=== PATIENT | male | born 1975 | race Two or more races ===

== ENCOUNTER 2024-07-11 14:12 | Inpatient (IN) | payer OTHER, MEDICAID ==
[~2024-07-11] VITALS: Ht 180.3 cm; Wt 172.5 kg
[2024-07-11 15:24] LABS: Urine Bacteria None Seen /hpf (None Seen)
[2024-07-11 15:40] LABS: Urine Blood TRACE /uL (Negative); Urine Clarity Clear (Clear); Urine Color Light-Yellow (Yellow); Urine Protein, UAD Negative (Negative); Urine Specific Gravity 1.022 (1.001-1.035); Urine Urobilinogen Normal (Negative); Urine WBC <1 /hpf (0 - 3); Urine pH 6.5 (5.0-9.0)
[2024-07-11 16:00] LABS: Basophils # (auto) 0.1 10 ^3/uL (0-0.2); Eosinophils # (auto) 0.9 10 ^3/uL (0-0.8); Hemoglobin 14.3 g/dL (13.5-17.5)
[2024-07-11 16:02] LABS: Basophils % (auto) 0.7 % (0.0-2.0); Eosinophils % (auto) 7.1 % (0.0-7.0); Hematocrit 43.2 % (41.0-53.0); Lymphocytes # (auto) 2.8 10 ^3/uL (0.4-5.4); Lymphocytes % (auto) 22.7 % (10.0-50.0); Mean Corpuscular Hemoglobin 25.2 pg (28.0-32.0); Mean Corpuscular Hgb Conc. 33.1 g/dL (32.0-36.0); Mean Corpuscular Volume 76.2 fL (80.0-100.0); Monocytes # (auto) 1.1 10 ^3/uL (0-1.3); Monocytes % (auto) 8.7 % (0.0-12.0); Neutrophils # (auto) 7.5 10 ^3/uL (1.6-8.6); Neutrophils % (auto) 60.8 % (37.0-80.0); Platelet Count (auto) 240 10^3/uL (140-450); Red Blood Cells 5.67 10^6/uL (4.5-5.90); Red Cell Distribution Width 14.9 % (11.8-14.3); White Blood Cell 12.3 10^3/uL (4.4-10.8)
[2024-07-11 16:20] LABS: Alanine Aminotransferase 21 U/L (7-40); Albumin 4.5 g/dL (3.2-4.8); Alkaline Phosphatase 206 U/L (46-116); Anion Gap 5 (5-15); Aspartate Aminotransferase 15 U/L (13-40); BUN/Creatinine Ratio 9.3 (10.0-20.0); Bilirubin, Total 0.4 mg/dL (0.2-1.0); Blood Urea Nitrogen 10 mg/dL (9-23); Calcium 9.6 mg/dL (8.7-10.4); Carbon Dioxide 31 mmol/L (20-30); Chloride 102 mmol/L (98-107); Glucose 165 mg/dL (74-106); Potassium 3.8 mmol/L (3.5-5.1); Sodium 138 mmol/L (136-145); Total Protein 7.5 g/dL (5.7-8.2)
[2024-07-11] MEDS: IOHEXOL 300 MG/ML 100ML BOTTLE IJ ONE (17:28)
[2024-07-11 20:15] VITALS: PULSE 54; RESP 20; O2SAT 100
[2024-07-11] MEDS: CLINDAMYCIN 900MG IV 50 ML IV ONE (20:25)
[2024-07-11] MEDS ORDERED: ACETAMINOPHEN 325 MG TAB PO PRN (20:45)
[2024-07-11] MEDS ORDERED: ALBUTEROL SULF 2.5 MG/0.5ML(0.5%) NEB SOLN NEB PRN (20:45)
[2024-07-11] MEDS ORDERED: TEMAZEPAM 15 MG CAP PO PRN (20:45)
[2024-07-11] MEDS ORDERED: ONDANSETRON HCL 4 MG/2 ML VIAL IV PRN (20:45)
[2024-07-11] MEDS: ATORVASTATIN 20 MG TAB PO SCH (22:02)
[2024-07-11] MEDS: CLINDAMYCIN 600MG IV 50 ML IV SCH (22:08)
[2024-07-11] MEDS: HYDROcodone-ACET 5/325MG TAB PO PRN (22:59)
[2024-07-11 23:00] VITALS: O2SAT 95
[2024-07-12] VITALS (11 sets, daily range): BP systolic 99–146; BP diastolic 58–106; PULSE 54–103; RESP 17–22; TEMP 98.1–98.6; O2SAT 92–97
[2024-07-12] MEDS ORDERED: CETI10CA PO (03:21)
[2024-07-12] MEDS ORDERED: ASPI-543 PO (03:21)
[2024-07-12] MEDS ORDERED: FLUT50AE5 IN (03:21)
[2024-07-12] MEDS ORDERED: MONT4CHW74 PO (03:21)
[2024-07-12] MEDS ORDERED: ARIP20TA4 PO (03:21)
[2024-07-12] MEDS ORDERED: IPRIH IN (03:21)
[2024-07-12] MEDS ORDERED: HYDR-4798 PO (03:21)
[2024-07-12 06:44] LABS: Chloride 103 mmol/L (98-107); Potassium 3.7 mmol/L (3.5-5.1); Sodium 137 mmol/L (136-145)
[2024-07-12 06:45] LABS: Anion Gap 5 (5-15); Calcium 9.3 mg/dL (8.7-10.4); Carbon Dioxide 29 mmol/L (20-30)
[2024-07-12 06:50] LABS: BUN/Creatinine Ratio 10.5 (10.0-20.0); Blood Urea Nitrogen 11 mg/dL (9-23); Glucose 183 mg/dL (74-106)
[2024-07-12 07:06] LABS: Basophils # (auto) 0 10 ^3/uL (0-0.2); Basophils % (auto) 0.1 % (0.0-2.0); Eosinophils # (auto) 0.5 10 ^3/uL (0-0.8); Eosinophils % (auto) 4.4 % (0.0-7.0); Hematocrit 40.7 % (41.0-53.0); Hemoglobin 13.5 g/dL (13.5-17.5); Lymphocytes # (auto) 2.3 10 ^3/uL (0.4-5.4); Lymphocytes % (auto) 19.3 % (10.0-50.0); Mean Corpuscular Hemoglobin 25.2 pg (28.0-32.0); Mean Corpuscular Volume 76.1 fL (80.0-100.0); Monocytes # (auto) 1.2 10 ^3/uL (0-1.3); Monocytes % (auto) 10.2 % (0.0-12.0); Nucleated Red Blood Cells % 0.1 %; Platelet Count (auto) 220 10^3/uL (140-450); Red Blood Cells 5.35 10^6/uL (4.5-5.90); White Blood Cell 12.2 10^3/uL (4.4-10.8)
[2024-07-12] MEDS: InsuLIN REG 1unit/0.01ml Soln (100units/ml) SC ONE (09:45)
[2024-07-12] MEDS: DEXTROSE (50%) 50ML SYRG IV ONE (09:45)
[2024-07-12] MEDS: ACCU-CHEK COMFORT CURVE STRIP VI ONE (09:45)
[2024-07-12] MEDS: ENOXAPARIN SOD 40 MG/0.4 ML SYRINGE SC SCH (10:00)
[2024-07-12] MEDS: DULoxetine HCL 30 MG CAP PO SCH (10:00)
[2024-07-12] MEDS: LOSARTAN POTASSIUM 50 MG TAB PO SCH (12:13)
[2024-07-12] MEDS: NYSTATIN TOPICAL POWDER 15GM TOP ONE (14:00)
[2024-07-12] MEDS: MORPHINE SULFATE INJ 2 MG/ml SYRG IV PRN (14:10)
[2024-07-12] MEDS ORDERED: DEXTROSE (50%) 50ML SYRG IV PRN (15:30)
[2024-07-12] MEDS: InsuLIN REG 1unit/0.01ml Soln (100units/ml) SC SCH (17:00)
[2024-07-12] MEDS: ACCU-CHEK COMFORT CURVE STRIP VI SCH (17:00)
[2024-07-12] MEDS: NYSTATIN TOPICAL POWDER 15GM TOP SCH (22:00)
[2024-07-13] VITALS (11 sets, daily range): BP systolic 104–158; BP diastolic 63–91; PULSE 61–107; RESP 17–20; TEMP 97.8–98.5; O2SAT 92–96
[2024-07-13] MEDS ORDERED: guaiFENesin 200 MG/10 ML UD PO PRN
[2024-07-13 07:11] LABS: Basophils # (auto) 0 10 ^3/uL (0-0.2); Basophils % (auto) 0.2 % (0.0-2.0); Eosinophils # (auto) 0.3 10 ^3/uL (0-0.8); Monocytes % (auto) 8.6 % (0.0-12.0)
[2024-07-13 07:13] LABS: Eosinophils % (auto) 2.8 % (0.0-7.0); Hematocrit 40.5 % (41.0-53.0); Hemoglobin 13.3 g/dL (13.5-17.5); Lymphocytes # (auto) 2.4 10 ^3/uL (0.4-5.4); Lymphocytes % (auto) 20.1 % (10.0-50.0); Mean Corpuscular Hemoglobin 25.1 pg (28.0-32.0); Mean Corpuscular Hgb Conc. 32.9 g/dL (32.0-36.0); Mean Corpuscular Volume 76.1 fL (80.0-100.0); Neutrophils # (auto) 8.1 10 ^3/uL (1.6-8.6); Neutrophils % (auto) 68.3 % (37.0-80.0); Platelet Count (auto) 232 10^3/uL (140-450); Red Blood Cells 5.32 10^6/uL (4.5-5.90); Red Cell Distribution Width 15.3 % (11.8-14.3); White Blood Cell 11.8 10^3/uL (4.4-10.8)
[2024-07-13 07:20] LABS: Chloride 105 mmol/L (98-107); Potassium 4.1 mmol/L (3.5-5.1); Sodium 139 mmol/L (136-145)
[2024-07-13 07:21] LABS: Anion Gap 9 (5-15); Calcium 9.3 mg/dL (8.7-10.4); Carbon Dioxide 25 mmol/L (20-30)
[2024-07-13 07:26] LABS: BUN/Creatinine Ratio 13.7 (10.0-20.0); Blood Urea Nitrogen 14 mg/dL (9-23); Glucose 174 mg/dL (74-106)
[2024-07-13] MEDS: GABAPENTIN 400 MG CAP PO ONE (13:35)
[2024-07-13] MEDS: ACETAMINOPHEN IV 1000 MG/100ML (10MG/ML) IV ONE (13:35)
[2024-07-13] MEDS: CELECOXIB 100 MG CAP PO ONE (13:35)
[2024-07-13] MEDS ORDERED: fentaNYL CITRATE 100 MCG/2 ML VL ONE ×3 (13:49→15:40)
[2024-07-13] MEDS ORDERED: MIDAZOLAM HCL 2MG/2ML 2ml VIAL (1mg/ml) ONE (13:49)
[2024-07-13] MEDS ORDERED: KETAMINE 50mg/ML 1ml syringe ONE (13:49)
[2024-07-13] MEDS ORDERED: LIDOCAINE 2% (LOCAL ANESTH.) PF 5ml SDV ONE (13:50)
[2024-07-13] MEDS ORDERED: ePHEDrine SULFATE 50 MG/ML AMP ONE (13:50)
[2024-07-13] MEDS ORDERED: PROPOFOL 10 MG/ML 20 ML IV ONE (13:50)
[2024-07-13] MEDS ORDERED: DexAMETHasone SOD PHOS 10MG/1ML VIAL INJ ONE (13:50)
[2024-07-13] MEDS ORDERED: GLYCOPYRROLATE 0.2 MG/ML 1ML VIAL ONE (13:50)
[2024-07-13] MEDS ORDERED: ONDANSETRON HCL 4 MG/2 ML VIAL ONE (13:50)
[2024-07-13] MEDS: BUPIVACAINE 0.5% MPF INJ 30ML SDV IJ ONE (14:11)
[2024-07-13] MEDS ORDERED: MEPERIDINE HCL (50 MG/ML) 1 ML VIAL ONE (14:24)
[2024-07-13] MEDS: CLINDAMYCIN 600MG IV 50 ML IV ONE (14:25)
[2024-07-13] MEDS ORDERED: SUGAMMADEX 200mg/2ml Vial (100MG/ML) IV ONE (15:25)
[2024-07-13] MEDS: ACCU-CHEK COMFORT CURVE STRIP VI ONE (17:00)
[2024-07-13] MEDS: ONDANSETRON HCL 4 MG/2 ML VIAL IV ONE (17:00)
[2024-07-13] MEDS: HYDROmorphone HCL 2 MG/ML VL/or syr ONE (17:04)
[2024-07-13] MEDS: HYDROmorphone HCL 2 MG/ML VL/or syr IV PRN (17:04)
[2024-07-14] VITALS (11 sets, daily range): BP systolic 103–153; BP diastolic 63–91; PULSE 73–115; RESP 16–20; TEMP 97.5–99.2; O2SAT 93–98
[2024-07-14] MEDS ORDERED: MORP1TAB14 PO (04:04)
[2024-07-14 06:55] LABS: Red Cell Distribution Width 15.3 % (11.8-14.3)
[2024-07-14 06:57] LABS: Basophils # (auto) 0.1 10 ^3/uL (0-0.2); Basophils % (auto) 0.3 % (0.0-2.0); Eosinophils # (auto) 0.1 10 ^3/uL (0-0.8); Eosinophils % (auto) 0.7 % (0.0-7.0); Hematocrit 40.7 % (41.0-53.0); Hemoglobin 13.1 g/dL (13.5-17.5); Lymphocytes # (auto) 1.9 10 ^3/uL (0.4-5.4); Lymphocytes % (auto) 9.9 % (10.0-50.0); Mean Corpuscular Hemoglobin 25.1 pg (28.0-32.0); Mean Corpuscular Hgb Conc. 32.2 g/dL (32.0-36.0); Mean Corpuscular Volume 77.9 fL (80.0-100.0); Monocytes # (auto) 1.4 10 ^3/uL (0-1.3); Monocytes % (auto) 7.4 % (0.0-12.0); Neutrophils # (auto) 15.8 10 ^3/uL (1.6-8.6); Neutrophils % (auto) 81.7 % (37.0-80.0); Nucleated Red Blood Cells % 0.1 %; Platelet Count (auto) 227 10^3/uL (140-450); Red Blood Cells 5.22 10^6/uL (4.5-5.90); White Blood Cell 19.3 10^3/uL (4.4-10.8)
[2024-07-14 07:05] LABS: Chloride 104 mmol/L (98-107); Potassium 4.2 mmol/L (3.5-5.1); Sodium 136 mmol/L (136-145)
[2024-07-14 07:06] LABS: Anion Gap 4 (5-15); Carbon Dioxide 28 mmol/L (20-30)
[2024-07-14 07:07] LABS: Calcium 9.3 mg/dL (8.7-10.4)
[2024-07-14 07:11] LABS: BUN/Creatinine Ratio 12.5 (10.0-20.0); Blood Urea Nitrogen 12 mg/dL (9-23); Glucose 168 mg/dL (74-106)
[2024-07-14] MEDS ORDERED: DEXTROSE (50%) 50ML SYRG IV PRN (07:15)
[2024-07-14] MEDS ORDERED: VANCOMYCIN PER PHARMACY 0 MG IV SCH ×2 (08:15→14:00)
[2024-07-14] MEDS: VANCOMYCIN 1GM/200ML 200 ML IV SCH ×2 (09:59→18:00)
[2024-07-14] MEDS: InsuLIN REG 1unit/0.01ml Soln (100units/ml) SC SCH (12:00)
[2024-07-14] MEDS: ACCU-CHEK COMFORT CURVE STRIP VI SCH (12:00)
[2024-07-14] MEDS: PIPERACILLIN-TAZOB 3.375GM 100 ML IV ONE (16:59)
[2024-07-14] MEDS: PIPERACILLIN-TAZOB 3.375GM 100 ML IV SCH (22:48)
[2024-07-15] VITALS (8 sets, daily range): BP systolic 113–156; BP diastolic 64–94; PULSE 87–104; RESP 16–20; TEMP 97.9–99.2; O2SAT 94–99
[2024-07-15 06:16] LABS: Basophils # (auto) 0 10 ^3/uL (0-0.2); Eosinophils # (auto) 0.1 10 ^3/uL (0-0.8); Lymphocytes # (auto) 2.7 10 ^3/uL (0.4-5.4); Mean Corpuscular Hgb Conc. 32.4 g/dL (32.0-36.0); Monocytes # (auto) 1.5 10 ^3/uL (0-1.3); Red Cell Distribution Width 15.5 % (11.8-14.3)
[2024-07-15 06:19] LABS: Anion Gap 7 (5-15); Carbon Dioxide 26 mmol/L (20-30); Chloride 104 mmol/L (98-107); Potassium 3.9 mmol/L (3.5-5.1); Sodium 137 mmol/L (136-145)
[2024-07-15 06:20] LABS: Calcium 8.6 mg/dL (8.7-10.4)
[2024-07-15 06:22] LABS: Basophils % (auto) 0.3 % (0.0-2.0); Eosinophils % (auto) 0.5 % (0.0-7.0); Hematocrit 37.4 % (41.0-53.0); Hemoglobin 12.1 g/dL (13.5-17.5); Lymphocytes % (auto) 20.7 % (10.0-50.0); Mean Corpuscular Hemoglobin 24.8 pg (28.0-32.0); Mean Corpuscular Volume 76.4 fL (80.0-100.0); Monocytes % (auto) 11.5 % (0.0-12.0); Neutrophils # (auto) 8.7 10 ^3/uL (1.6-8.6); Platelet Count (auto) 192 10^3/uL (140-450)
[2024-07-15 06:25] LABS: BUN/Creatinine Ratio 11.8 (10.0-20.0); Blood Urea Nitrogen 11 mg/dL (9-23); Glucose 161 mg/dL (74-106)
[2024-07-15] MEDS ORDERED: LEVO750T40 PO (14:08)
[2024-07-15] MEDS ORDERED: METR-344 PO (14:08)
[2024-07-15] MEDS ORDERED: KETOROLAC TROMETH 30 MG/ML 1ML VIAL IV ONE (17:44)
== END 2024-07-15 17:45 | disposition home health service (06) | DRG 354 ==
LOC: ER 14:12 → CENTRAL 20:48 → OVERFLOW 20:48 → CENTRAL 23:42
PROVIDERS: ADMIT Internal Medicine; ATTEND Internal Medicine
PROC: 0DBU0ZZ Excision of Omentum, Open Approach (ICD-10-PCS; 2024-07-13)
PROC: 5A09357 Assistance with Respiratory Ventilation, Less than 24 Consecutive Hours, Continuous Positive Airway Pressure (ICD-10-PCS; 2024-07-13)
PROC: 0WQF0ZZ Repair Abdominal Wall, Open Approach (ICD-10-PCS; principal; 2024-07-13 14:10)
DX: K42.0 Umbilical hernia with obstruction, without gangrene (principal); I50.32 Chronic diastolic (congestive) heart failure; L03.311 Cellulitis of abdominal wall; Z68.43 Body mass index [BMI] 50.0-59.9, adult; K43.6 Other and unspecified ventral hernia with obstruction, without gangrene; J44.9 Chronic obstructive pulmonary disease, unspecified; E66.01 Morbid (severe) obesity due to excess calories; F31.9 Bipolar disorder, unspecified; I11.0 Hypertensive heart disease with heart failure; E11.9 Type 2 diabetes mellitus without complications; Z86.73 Personal history of transient ischemic attack (TIA), and cerebral infarction without residual deficits; Z88.0 Allergy status to penicillin; Z88.8 Allergy status to other drugs, medicaments and biological substances
CPT/HCPCS: 36415; 71045; 74177; 80048; 80053; 80202; 81001; 82565; 82962; 83036; 83690; 84484; 85025; 93005; 96365; G0378; J0131; J1100; J1815; J1885; J2001; J2250; J2405; J2543; J2704; J3490

== ENCOUNTER 2025-08-30 16:44 | Inpatient (IN) | payer MEDICARE, MEDICAID ==
[~2025-08-30] VITALS: Ht 180.3 cm; Wt 133.2 kg
[~2025-08-30 16:44] MED LIST: AMIL5TAB24 PO; ARIP20TA4 PO; ASPI-543 PO; CARV6.2551 PO; CETI10CA PO; FLUT50AE5 IN; HYDR-4795 PO; HYDR-4798 PO; HYDR50CA2 PO; IPRIH IN; LEVO750T40 PO; METR-344 PO; MONT4CHW74 PO; MORP1TAB14 PO; POTA-220 PO; TIZA4TAB9 PO
[2025-08-30 17:00] VITALS: PULSE 110; RESP 20; O2SAT 98
[2025-08-30] MEDS: ONDANSETRON HCL 4 MG/2 ML VIAL IV ONE ×2 (17:13→17:22)
[2025-08-30 17:53] LABS: Hemoglobin 15.6 g/dL (13.5-17.5)
[2025-08-30 17:55] LABS: Hematocrit 46.5 % (41.0-53.0); Mean Corpuscular Hemoglobin 25.0 pg (28.0-32.0); Mean Corpuscular Volume 74.9 fL (80.0-100.0); Nucleated Red Blood Cells % 0.1 %
--- NOTE | 2025-08-30 17:58 | ED.PDOC ---
GI ASSESSMENT HPI Comments Felix Monahan is a 49-year-old male with past medical history of COPD (home O2 prn), CVA (2023, bed bound since then), hypertension, bipolar disorder, DM2 and CHF. The patient came to the ED via EMS with chief complain of 4 days of watery diarrhea, associated with productive cough, yellowish sputum, nausea, subjective fever, chills, vomit # 4 of gastric fluid content. On further questioning the patient reports he was hospitalized at [facility] (08/11-08/14) due to UTI and sepsis. Today, the patient reports increase in nausea and vomit > 4 times, this prompted his visit to the ED. In the ED the BP; 137/102mmHg, HR; 113bpm. WBC: 9.5x10e3/uL, AST; 65, ALT: 102 Lactic acid: 5.0. The patient will be admitted for further assessment and management. Chief Complaint: Nausea/Vomiting Time Seen by MD: 17:03 Reviewed Notes: Nurses Notes, Medications, Allergies Allergies: Coded Allergies: Avibactam (Verified Allergy, Unknown, 07/11/24) Ceftazidime (Verified Allergy, Unknown, 07/11/24) Penicillins (Verified Allergy, Unknown, 07/11/24) Home Meds Active Scripts Metronidazole (Flagyl) 500 Mg Tab, 1 TAB PO TID for 7 Days, #21 TAB Prov:LAURA NUNEZ RESIDENT 07/15/24 Levofloxacin Hemihydrate (LEVOFLOXACIN) 750 Mg Tab, 1 TAB PO DAILY for 7 Days, #7 TAB Prov:LAURA NUNEZ RESIDENT 07/15/24 Reported Medications Morphine Sulfate (Morphine Sulfate Er) 60 Mg Tab, 60 MG PO, TAB 07/14/24 Aspirin (Aspir-Low) 81 Mg Tab, PO DAILY for 30 Days, MG 07/12/24 Fluticasone Propionate (Inhala (Fluticasone Propionate Di) 50 Mcg/Act Aer, IN, AER 07/12/24 Cetirizine Hcl (Zyrtec Allergy) 10 Mg Cap, PO, CAP 07/12/24 Ipratropium [place] Hfa (Atrovent Hfa) 17 Mcg Aer, IN, AER 07/12/24 Montelukast Sodium (Singulair) 4 Mg Chw, 25 MG PO DAILY, TAB.CHEW 07/12/24 Aripiprazole (Abilify) 20 Mg Tab, 30 MG PO DAILY, TAB 07/12/24 Hydrocodone-Acetaminophen (Hydrocodone Bitartrate/AC 10-325 mg) 1 Tab Tab, 1 TAB PO BID PRN for PAIN SCALE 1 THRU 6, TAB 07/12/24 Information Source: Patient, Spouse Mode of Arrival: EMS Timing: Days Duration: Since onset Stool: Watery, Yellow Severity: Moderate Recent: None Recent Hx of: None Associated sign and symptoms: Nausea, Vomiting, Diarrhea Past Medical History PAST MEDICAL HISTORY: CHF, COPD, CVA (2023 x2), DM (type 2 ), HTN Past Medical History (Other): Bipolar disorder Surgical History: Hernia Repair Family History Family History: Reviewed,noncontributory to illness Social History Smoker: Non-Smoker Alcohol: Denies ETOH Use Drugs: Denies Drug Use Lives In: Home Constitutional: reports: chills, fever, malaise; denies: diaphoresis, fatigue, sweats, weakness, others EENTM: denies: blurred vision, double vision, ear bleeding, ear discharge, ear drainage, ear pain, ear ringing, eye pain, eye redness, hearing loss, mouth pain, mouth swelling, nasal discharge, nose bleeding, nose congestion, nose pain, photophobia, tearing, throat pain, throat swelling, voice changes, others Respiratory: reports: cough; denies: hemoptysis, orthopnea, SOB at rest, shortness of breath, SOB with excertion, stridor, wheezing, others Cardiovascular: denies: chest pain, dizzy spells, diaphoresis, Dyspnea on exertion, edema, irregular heart beat, left arm pain, lightheadedness, palpitations, PND, syncope, others Gastrointestinal: reports: diarrhea, vomiting; denies: abdomen distended, abdominal pain, blood streaked bowels, constipated, dysphagia, difficulty swallowing, hematemesis, melena, nausea, poor appetite, poor fluid intake, rectal bleeding, rectal pain, others Physical Exam General Appearance: Moderate Distress, Obese HEENT: Normal ENT Inspection, Pharynx Normal, TMs Normal Neck: Full Range of Motion, Non-Tender, Normal, Normal Inspection Respiratory: Chest Non-Tender, Decreased Breath Sounds, Other (crackles on bases) Cardiovascular: No Edema, No JVD, No Murmur, No Gallop, Normal Peripheral Pulses, Regular Rate/Rhythm, Tachycardia (113) Breast Exam: Deferred Gastrointestinal: Non Tender, Normal Bowel Sounds, Soft Genitalia: Deferred Pelvic: Deferred Rectal: Deferred Extremities: Normal capillary refill, No pedal edema, Other (lost of strength post CVA, sensation preserved. ) Musculoskeletal : Apperance: Normal Neurologic: Alert, solar energy specialist II-XII nml as Tested, Other (Motor deficit from waist down, the patient is bed-bound. ) Cerebellar Function: Unable to Test Reflexes: Other (Disminish waist down. ) Skin: Dry, Normal Color, Warm Lymphatic: No Adenopathy Was a procedure done? Was a procedure done?: No GI differential Dx Differential Diagnosis: Gastroenteritis, Inflammatory BD, Electrolyte Imbalance Other Differential Diagnosis #Pneumonia #Sepsis. X-Ray, Labs, Meds, VS Vital Signs Date Time Temp Pulse Resp B/P (MAP) Pulse Ox O2 Delivery O2 Flow Rate FiO2 08/30/25 17:00 98.8 110 20 132/99 (110) 98 98.8 08/30/25 17:00 110 20 98 Room Air* 0 21 08/30/25 16:49 97.9 113 18 137/102 98 97.9 Lab Test 08/30/25 18:27 08/30/25 17:32 Range/Units Urine Color Pending Urine Clarity Pending Urine pH Pending Urine Specific [place] Pending Urine Protein Pending Urine Ketones Pending Urine Blood Pending Urine Nitrite Pending Urine Bilirubin Pending Urine Urobilinogen Pending Urine Leukocyte Esterase Pending Urine RBC Pending Urine Microscopic WBC Pending Urine Squamous Epithelial Cells Pending Urine Bacteria Pending Urine Glucose Pending White Blood Count 9.5 4.4-10.8 10^3/uL Red Blood Count 6.21 H 4.5-5.90 10^6/uL Hemoglobin 15.6 13.5-17.5 g/dL Hematocrit 46.5 41.0-53.0 % Mean Corpuscular Volume 74.9 L 80.0-100.0 fL Mean Corpuscular Hemoglobin 25.0 L 28.0-32.0 pg Mean Corpuscular Hemoglobin Concent 33.5 32.0-36.0 g/dL Red Cell Distribution Width 15.7 H 11.8-14.3 % Platelet Count 278 140-450 10^3/uL Mean Platelet Volume 8.4 6.9-10.8 fL Neutrophils (%) (Auto) 65.6 37.0-80.0 % Lymphocytes (%) (Auto) 24.1 10.0-50.0 % Monocytes (%) (Auto) 8.3 0.0-12.0 % Eosinophils (%) (Auto) 1.6 0.0-7.0 % Basophils (%) (Auto) 0.4 0.0-2.0 % Neutrophils # (Auto) 6.3 1.6-8.6 10 ^3/uL Lymphocytes # (Auto) 2.3 0.4-5.4 10 ^3/uL Monocytes # (Auto) 0.8 0-1.3 10 ^3/uL Eosinophils # (Auto) 0.2 0-0.8 10 ^3/uL Basophils # (Auto) 0 0-0.2 10 ^3/uL Nucleated Red Blood Cells 0.1 % Sodium Level 136 136-145 mmol/L Potassium Level 3.2 L 3.5-5.1 mmol/L Chloride Level 98 98-107 mmol/L Carbon Dioxide Level 18 L 20-31 mmol/L Anion Gap 20 H 5-15 Blood Urea Nitrogen 10 9-23 mg/dL Creatinine 1.29 0.700-1.30 mg/dL Glomerular Filtration Rate Calc 67 >90 mL/min BUN/Creatinine Ratio 7.8 L 10.0-20.0 Serum Glucose 184 H 74-106 mg/dL Lactic Acid Level 5.0 *H 0.4-2.0 mmol/L Calcium Level 9.7 8.7-10.4 mg/dL Total Bilirubin 2.1 H 0.2-1.0 mg/dL Aspartate Amino Transferase (AST) 65 H 13-40 U/L Alanine Aminotransferase (ALT) 102 H 7-40 U/L Alkaline Phosphatase 213 H 46-116 U/L Total Protein 8.1 5.7-8.2 g/dL Albumin 4.6 3.2-4.8 g/dL Lipase 50 12-53 U/L Current Medications Medications (Trade) Dose Ordered Sig/Kathie Route Start Time Stop Time Status Last Admin Ondansetron HCl (Zofran) 4 mg ONCE ONCE IV 08/30/25 17:15 08/30/25 17:16 DC 08/30/25 17:13 X-Ray, Labs, Meds, VS Comment 18:35 The patient has been re-evaluated, nausea has improved after medication. CBC: WBC 9.5 x10e3, CMP: Lactic Acid 5.0 The patient will be admitted for further management. Time of 1ST Reevaluation: 18:35 Reevaluation 1ST: Unchanged Patient Education/Counseling: Diagnosis, Treatment, Prognosis, Need For Follow Up Family Education/Counseling: Diagnosis, Treatment, Prognosis, Need For Follow Up SEPSIS Sepsis Screen Date sepsis recognized/suspect: Aug 30, 2025 Time Sepsis recognized/suspect: 1699 Recent Procedure: No On Antibiotic Therapy: No Respiratory Rate >20: No Heart Rate >90: Yes Temp<36 C (96.8 F) or >38.3 C: No SBP <90 or MAP <65 mmHG: No New Acute Mental Status Change: No Is the patient on CPAP, BIPAP,: No Physician Orders Comprehensive Metabolic Panel (08/30/25 17:04) Lipase (08/30/25 17:04) Urinalysis (08/30/25 17:04) Lactic Acid W/ Reflex Order (08/30/25 17:04) Stool Wbc (08/30/25 17:04) Blood Culture (08/30/25 17:21) Chest Xray 1 View (08/30/25 17:22) Ct Ab Pel Wo Con-No Oral Or Iv (08/30/25 17:22) Vital Signs Date Time Temp Pulse Resp B/P (MAP) Pulse Ox O2 Delivery O2 Flow Rate FiO2 08/30/25 17:00 98.8 110 20 132/99 (110) 98 98.8 08/30/25 17:00 110 20 98 Room Air* 0 21 08/30/25 16:49 97.9 113 18 137/102 98 97.9 Laboratory Tests Test 08/30/25 17:32 Lactic Acid Level 5.0 mmol/L (0.4-2.0) *H White Blood Count 9.5 10^3/uL (4.4-10.8) Medications Medications Dose Ordered Sig/Kathie Route Start Time Stop Time Status Last Admin Dose Admin Ondansetron HCl 4 mg ONCE ONCE IV 08/30/25 17:15 08/30/25 17:16 DC 08/30/25 17:13 Departure 1 Departure Time of Disposition: 18:40 Impression: Primary Impression: Sepsis Additional Impressions: UTI (urinary tract infection) Pneumonia Disposition: ADMITTED INPATIENT Admit to: Med Surg Condition: Fair Comments Goals of care discussed with the patient > 35 min. Discussed plan of care with Dr. Gomez Code status: Full code PCP: Latisha Plan discussed with: Patient and spouse, the patient agrees with the admission plan. Critical Care Note Critical Care Time?: No Stability Stability form required: No Heart Score Heart Score: Heart Score Response (Comments) Value History N/A 0 EKG N/A 0 Age N/A 0 Risk Factors N/A 0 Troponin N/A 0 Total 0 MIKO ARIAS RESIDENT Aug 30, 2025 17:58
--- NOTE | 2025-08-30 18:06 | DVH ---
CHEST RADIOGRAPH Indication: COPD, CHF Technique: Single frontal view of the chest was obtained Comparison: XY CHEST PORTABLE on DOS: 07/12/24 FINDINGS: Lines and Tubes: None Lungs: No focal consolidation. Mild elevation of the right hemidiaphragm. Pleura: No effusion. No pneumothorax. Cardiomediastinal contours: Unremarkable Bones: No acute osseous abnormality. IMPRESSION: No acute cardiopulmonary disease.
[2025-08-30 18:11] LABS: Albumin 4.6 g/dL (3.2-4.8); Anion Gap 20 (5-15); BUN/Creatinine Ratio 7.8 (10.0-20.0); Blood Urea Nitrogen 10 mg/dL (9-23); Calcium 9.7 mg/dL (8.7-10.4); Chloride 98 mmol/L (98-107); Lipase 50 U/L (12-53); Total Protein 8.1 g/dL (5.7-8.2)
[2025-08-30 18:12] LABS: Alanine Aminotransferase 102 U/L (7-40); Alkaline Phosphatase 213 U/L (46-116); Bilirubin, Total 2.1 mg/dL (0.2-1.0); Carbon Dioxide 18 mmol/L (20-31); Glucose 184 mg/dL (74-106); Potassium 3.2 mmol/L (3.5-5.1); Sodium 136 mmol/L (136-145)
[2025-08-30 18:16] LABS: Lactic Acid w/Reflex 5.0 mmol/L (0.4-2.0)
[2025-08-30] MEDS: SODIUM CHLORIDE 0.9% 1,000 ML IV ONE (18:26)
[2025-08-30 18:38] LABS: Urine Amorphous Crystal FEW /hpf (None Seen); Urine Protein, UAD 1+ (Negative)
[2025-08-30] MEDS: CEFEPIME 1GM/50ML 50 ML IV ONE (18:46)
--- NOTE | 2025-08-30 19:07 | DVH ---
Exam: CT CT AB PEL WO CON-NO ORAL OR IV History: Abdominal pain Comparison Study: None Technique: Multidetector spiral CT of the abdomen was performed from lung bases to pubic symphysis. I maging was performed without IV contrast. Axial, coronal and sagittal multiplanar reformats were obta ined from the axial data set by the technologist. Radiation dose : 1. Abdomen/Pelvis: CTDIvol 27.88 mGy, DLP 1608.58 mGy*cm. Findings: Evaluation of solid organs is limited due to lack of intravenous contrast use. Lung Bases: No acute or significant lung base finding. Normal heart size. No pleural or pericardial effusion. Liver: The liver is normal in size. No focal lesions. Gallbladder and biliary Tree: Unremarkable Spleen: Unremarkable Pancreas: The pancreas is grossly normal in appearance. Adrenal Glands: Unremarkable Kidneys: Kidneys are grossly normal without calculi or hydronephrosis. Bladder: Grossly unremarkable for degree of distention. Bowel: The stomach is grossly normal in appearance. Small bowel and colon are normal in caliber and d istribution. Normal appendix is visualized in the right lower quadrant without findings of appendicit is. Ascites: Absent Lymphadenopathy: No mesenteric, retroperitoneal or periportal lymphadenopathy. Abdominal wall and Mesentery: Unremarkable. Vasculature: The visualized abdominal aorta is normal in size and caliber. Evaluation of abdominal a nd pelvic vessels is limited due to lack of intravenous contrast. Pelvic Organs: Unremarkable Musculoskeletal: No aggressive focal bony lesions, acute fractures or dislocation. IMPRESSION: No acute abdominal or pelvic findings. Radiation optimization: All CT scans at this facility use at least one of these dose optimization nirav hniques: automated exposure control mA and/or kV adjustment per patient size (includes targeted exam s where dose is matched to clinical indication) or iterative reconstruction.
[2025-08-30 19:30] VITALS: PULSE 110; RESP 20; O2SAT 98
[2025-08-30] MEDS ORDERED: DOCUSATE SOD 100 MG CAP PO PRN (19:30)
[2025-08-30] MEDS ORDERED: DEXTROSE (50%) 50ML SYRG IV PRN (19:30)
[2025-08-30] MEDS ORDERED: ACETAMINOPHEN 325 MG TAB PO PRN (19:30)
--- NOTE | 2025-08-30 19:41 | DVHHP2 ---
History of Present Illness Reason for Visit: Intractable nausea and vomiting History of Present Illness The patient is a 50-year-old male morbidly obese with past medical history of CHF, COPD, CVA, DM, bipolar disorder, and hypertension who presented to [facility] ED with complaint of intractable nausea and vomiting for the past 1 month. /patient reports that he has been experiencing nausea and vomiting gastric fluid content associated with watery diarrhea, productive cough with yellowish sputum, subjective fever, chills, getting worse today that prompted this visit. Patient was seen and evaluated in the ED, laboratory data shows WBC 9.5, platelets 278, sodium 136, potassium 3.2, BUN 10, creatinine 1.29, GFR 67, glucose 184, calcium 9.7, lipase 50, lactic acid 5.0, total bilirubin 2.1, AST 65, ALT 102, blood pressure 132/99, heart rate 110, temperature 98.8 F, O2 saturation 98% on room air. Urinalysis positive for urinary tract infection; abdomen/pelvis CT showed no acute abdominal or pelvic findings. Chest x-ray images revealing pneumonia. Please see medication orders section in the computer. On my assessment, at bedside, patient denied chest pain, no headache, no dizziness, no diaphoresis, currently on oxygen, no abdominal pain at this moment, no diarrhea, nausea, vomiting, fever, or chills. Patient was admitted for further evaluation and medical management. Past Medical History CHF, COPD, CVA (2023 x2), DM (type 2 ), HTN, Bipolar disorder Past Surgical History Hernia Repair Family History Reviewed, noncontributory to the management of this case. Past Social History The patient lives at home, denies smoking, alcohol or illicit drugs abuse. Review of Systems Constitutional: Yes: Fever, Chills, Malaise; No: Sweats, Weakness, Other Eyes: No: Pain, Vision change, Conjunctivae inflammation, Eyelid inflammation, Other, Redness ENT: No: Ear pain, Ear discharge, Nose pain, Nose discharge, Nose congestion, Mouth pain, Mouth swelling, Throat pain, Throat swelling, Other Respiratory: No: Cough, Dry, Shortness of breath, SOB with excertion, Wheezing, Hemoptysis, Pleuritic Pain, Sputum, Wheezing, Other Cardiovascular: No: Chest Pain, Palpitations, Orthopnea, Paroxysmal Noc. Dyspnea, Edema, Lt Headedness, Other Gastrointestinal: Nausea, Vomiting, Abdominal Pain, Diarrhea; No: Constipation, Melena, Hematochezia, Other Genitourinary: No Dysuria, No Frequency, No Incontinence, No Hematuria, No Retention, No Other Musculoskeletal: No: other, neck pain, shoulder pain, arm pain, back pain, hand pain, leg pain, foot pain Skin: No: Rash, Lesions, Jaundice, Bruising, Other Neurological: No: Weakness, Numbness, Incoordination, Change in speech, Confusion, Seizures, Other Allergies: Coded Allergies: Avibactam (Verified Allergy, Unknown, 07/11/24) Ceftazidime (Verified Allergy, Unknown, 07/11/24) Penicillins (Verified Allergy, Unknown, 07/11/24) Medications Current Medications Medications Dose Ordered Sig/Kathie Route Start Time Stop Time Status Last Admin Dose Admin Azithromycin 250 ml @ 125 mls/hr DAILY IV 08/31/25 10:00 UNV Diagnostic Test (Pha) 1 strip Q6HR 08/31/25 00:00 UNV Insulin Human Regular Q6HR SC 08/31/25 00:00 UNV Dextrose 50 ml UD PRN IV 08/30/25 19:30 UNV Sodium Chloride 1,000 ml @ 60 mls/hr [id number] IV 08/30/25 19:30 UNV Acetaminophen/ Hydrocodone Bitart 1 tab Q4HP PRN PO 08/30/25 19:30 UNV Ondansetron HCl 4 mg Q4HP PRN IV 08/30/25 19:30 UNV Docusate Sodium 100 mg BIDPRN PRN PO 08/30/25 19:30 UNV Acetaminophen 650 mg Q6HP PRN PO 08/30/25 19:30 UNV Potassium Chloride 100 ml @ 50 mls/hr Q2H IV 08/30/25 19:30 08/30/25 23:29 UNV Exam Vital Signs Vital Signs Date Time Temp Pulse Resp B/P (MAP) Pulse Ox O2 Delivery O2 Flow Rate FiO2 08/30/25 18:00 101 18 124/93 (103) 98 08/30/25 17:00 98.8 98.8 08/30/25 17:00 Room Air* 0 21 General Appearance: Alert, Oriented X3, Cooperative, No acute distress HEENT: Atraumatic, PERRLA, EOMI, Mucous membr. moist/pink Respiratory: Normal air movement Cardiovascular: Regular rate, Normal S1, Normal S2, No murmurs Abdominal: Normal bowel sounds, Soft, No tenderness, No hepatospenomegaly, No masses Extremities: No clubbing, No cyanosis, No edema, Normal pulses, No tenderness/swelling Skin: No rashes, No breakdown, No significant lesion Neuro: Normal speech, Normal tone, Sensation intact, Cranial nerves 3-12 NL, Reflexes 2+ Psych/Mental Status: Mental status NL, Mood NL Labs/Xrays Labs Test 08/30/25 18:27 08/30/25 17:32 Range/Units Urine Color Dark-yellow Yellow Urine Clarity Turbid H Clear Urine pH 5.5 5.0-9.0 Urine Specific [place] 1.033 1.001-1.035 Urine Protein 1+ H Negative Urine Ketones Trace Negative Urine Blood Negative Negative /uL Urine Nitrite Negative Negative Urine Bilirubin 1+ Negative Urine Urobilinogen 6 Negative mg/dL Urine Leukocyte Esterase Trace Negative /uL Urine RBC 3 0 - 3 /hpf Urine Microscopic WBC 11 H 0-3 /HPF Urine Squamous Epithelial Cells Few <5 /hpf Urine Amorphous Crystals Few None Seen /hpf Urine Bacteria Few H None Seen /hpf Urine Mucus Few None Seen Urine Glucose Trace Normal mg/dL White Blood Count 9.5 4.4-10.8 10^3/uL Red Blood Count 6.21 H 4.5-5.90 10^6/uL Hemoglobin 15.6 13.5-17.5 g/dL Hematocrit 46.5 41.0-53.0 % Mean Corpuscular Volume 74.9 L 80.0-100.0 fL Mean Corpuscular Hemoglobin 25.0 L 28.0-32.0 pg Mean Corpuscular Hemoglobin Concent 33.5 32.0-36.0 g/dL Red Cell Distribution Width 15.7 H 11.8-14.3 % Platelet Count 278 140-450 10^3/uL Mean Platelet Volume 8.4 6.9-10.8 fL Neutrophils (%) (Auto) 65.6 37.0-80.0 % Lymphocytes (%) (Auto) 24.1 10.0-50.0 % Monocytes (%) (Auto) 8.3 0.0-12.0 % Eosinophils (%) (Auto) 1.6 0.0-7.0 % Basophils (%) (Auto) 0.4 0.0-2.0 % Neutrophils # (Auto) 6.3 1.6-8.6 10 ^3/uL Lymphocytes # (Auto) 2.3 0.4-5.4 10 ^3/uL Monocytes # (Auto) 0.8 0-1.3 10 ^3/uL Eosinophils # (Auto) 0.2 0-0.8 10 ^3/uL Basophils # (Auto) 0 0-0.2 10 ^3/uL Nucleated Red Blood Cells 0.1 % Sodium Level 136 136-145 mmol/L Potassium Level 3.2 L 3.5-5.1 mmol/L Chloride Level 98 98-107 mmol/L Carbon Dioxide Level 18 L 20-31 mmol/L Anion Gap 20 H 5-15 Blood Urea Nitrogen 10 9-23 mg/dL Creatinine 1.29 0.700-1.30 mg/dL Glomerular Filtration Rate Calc 67 >90 mL/min BUN/Creatinine Ratio 7.8 L 10.0-20.0 Serum Glucose 184 H 74-106 mg/dL Lactic Acid Level 5.0 *H 0.4-2.0 mmol/L Calcium Level 9.7 8.7-10.4 mg/dL Total Bilirubin 2.1 H 0.2-1.0 mg/dL Aspartate Amino Transferase (AST) 65 H 13-40 U/L Alanine Aminotransferase (ALT) 102 H 7-40 U/L Alkaline Phosphatase 213 H 46-116 U/L Total Protein 8.1 5.7-8.2 g/dL Albumin 4.6 3.2-4.8 g/dL Lipase 50 12-53 U/L PATIENT: ANDREA COE JACCT: [id number] UNIT: [id number] : 1975 LOC: ER ROOM / BED: / AGE / SEX: 50 / M ADM STATUS: REG ER SERVICE [id number] ORDERING PHYSICIAN: MIKO ARIAS RESIDENT PROCEDURE(s): ABPL - CT AB PEL WO CON-NO ORAL OR IV REASON: Abdominal pain ORDER NUMBER(s): [id number], ACCESSION NUMBER(s): [id number] Exam: CT CT AB PEL WO CON-NO ORAL OR IV History: Abdominal pain Comparison Study: None Technique: Multidetector spiral CT of the abdomen was performed from lung bases to pubic symphysis. Imaging was performed without IV contrast. Axial, coronal and sagittal multiplanar reformats were obtained from the axial data set by the technologist. Radiation dose: 1. Abdomen/Pelvis: CTDIvol 27.88 mGy, DLP 1608.58 mGy*cm. Findings: Evaluation of solid organs is limited due to lack of intravenous contrast use. Lung Bases: No acute or significant lung base finding. Normal heart size. No p leural or pericardial effusion. Liver: The liver is normal in size. No focal lesions. Gallbladder and biliary Tree: Unremarkable Spleen: Unremarkable Pancreas: The pancreas is grossly normal in appearance. Adrenal Glands: Unremarkable Kidneys: Kidneys are grossly normal without calculi or hydronephrosis. Bladder: Grossly unremarkable for degree of distention. Bowel: The stomach is grossly normal in appearance. Small bowel and colon are normal in caliber and distribution. Normal appendix is visualized in the right lower quadrant without findings of appendicitis. Ascites: Absent Lymphadenopathy: No mesenteric, retroperitoneal or periportal lymphadenopathy. Abdominal wall and Mesentery: Unremarkable. Vasculature: The visualized abdominal aorta is normal in size and caliber. Evaluation of abdominal and pelvic vessels is limited due to lack of intravenous contrast. Pelvic Organs: Unremarkable Musculoskeletal: No aggressive focal bony lesions, acute fractures or dislocation. IMPRESSION: No acute abdominal or pelvic findings. Radiation optimization: All CT scans at this facility use at least one of these dose optimization techniques: automated exposure control mA and/or kV adjustment per patient size (includes targeted exams where dose is matched to clinical indication) or iterative reconstruction. ORDERING PHYSICIAN: MIKO ARIAS RESIDENT PROCEDURE(s): CXR1 - CHEST XRAY 1 VIEW REASON: COPD, CHF ORDER NUMBER(s): [id number], ACCESSION NUMBER(s): [id number] CHEST RADIOGRAPH Indication: COPD, CHF Technique: Single frontal view of the chest was obtained Comparison: XY CHEST PORTABLE on DOS: 07/12/24 FINDINGS: Lines and Tubes: None Lungs: No focal consolidation. Mild elevation of the right hemidiaphragm. Pleura: No effusion. No pneumothorax. Cardiomediastinal contours: Unremarkable Bones: No acute osseous abnormality. IMPRESSION: No acute cardiopulmonary disease. SEPSIS Sepsis Screen Date sepsis recognized/suspect: Aug 30, 2025 Time Sepsis recognized/suspect: 1700 Recent Procedure: No On Antibiotic Therapy: No Respiratory Rate >20: No Heart Rate >90: Yes Temp<36 C (96.8 F) or >38.3 C: No SBP <90 or MAP <65 mmHG: No New Acute Mental Status Change: No Is the patient on CPAP, BIPAP,: No Physician Orders Stool Wbc (08/30/25 17:04) Blood Culture (08/30/25 17:21) Chest Xray 1 View (08/30/25 17:22) Ct Ab Pel Wo Con-No Oral Or Iv (08/30/25 17:22) Azithromycin 500mg/ 250ml (Zithromax 50 (08/30/25 18:30) Azithromycin 500mg/ 250ml (Zithromax 50 (08/31/25 10:00) Glucose Blood (Accu-Chek Comfort Curve T (08/31/25 00:00) Insulin R (Human) (Insulin R) (08/31/25 00:00) Dextrose 50% Syringe (08/30/25 19:30) Allergies (08/30/25 19:16) Code Status (08/30/25 19:16) Sodium Chloride 0.9% (08/30/25 19:30) Oxygen Per Hour (08/30/25 19:16) Hydrocodone-Acet 5/325mg Tab (Nubieber 5/32 (08/30/25 19:30) Ondansetron Hcl (Zofran) (08/30/25 19:30) Docusate Sodium Capsule (Colace Capsule) (08/30/25 19:30) Complete Blood Count (08/31/25 04:00) Comprehensive Metabolic Panel (08/31/25 04:00) Condition: Serious (08/30/25 19:16) Acetaminophen Tablet (Tylenol Tablet) (08/30/25 19:30) Clear Liq Diet (08/31/25 Breakfast) Bedrest With Bathroom Privileg (08/30/25 19:16) Sequential Compression Device (08/30/25 ) Potassium Chl 20meq/100ml (08/30/25 19:30) Vital Signs Date Time Temp Pulse Resp B/P (MAP) Pulse Ox O2 Delivery O2 Flow Rate FiO2 08/30/25 18:00 101 18 124/93 (103) 98 08/30/25 17:00 98.8 110 20 132/99 (110) 98 98.8 08/30/25 17:00 110 20 98 Room Air* 0 21 08/30/25 16:49 97.9 113 18 137/102 98 97.9 Laboratory Tests Test 08/30/25 17:32 Lactic Acid Level 5.0 mmol/L (0.4-2.0) *H White Blood Count 9.5 10^3/uL (4.4-10.8) Medications Medications Dose Ordered Sig/Kathie Route Start Time Stop Time Status Last Admin Dose Admin Cefepime HCl 50 ml @ 50 mls/hr ONCE ONCE IV 08/30/25 18:30 08/30/25 19:29 DC 08/30/25 18:46 50 MLS/HR Ondansetron HCl 4 mg ONCE ONCE IV 08/30/25 17:15 08/30/25 17:16 DC 08/30/25 17:13 4 MG Ondansetron HCl 4 mg ONCE ONCE IV 08/30/25 17:15 08/30/25 17:16 DC 08/30/25 18:50 4 MG Sodium Chloride 1,000 ml @ 1,000 mls/hr Q1H ONCE IV 08/30/25 18:30 08/30/25 19:29 DC 08/30/25 18:26 1,000 MLS/HR Assessment/Plan Assessment/Plan Sepsis, unspecified organism Hypokalemia Elevated liver enzymes UTI (urinary tract infection) Pneumonia, unspecified organism Diabetes mellitus with hyperglycemia Plan 1. Admit to telemetry unit 2. Breathing treatment 3. Pain control management 4. IV antibiotic management 5. Management of fluids and electrolytes 6. Consultation for hospitalist 7. Diagnostic test chest x-ray 8. DVT prophylaxis-on SCDs 9. Repeat labs CBC, CMP in a.m. 10. Home medication reviewed and reconciled 11. Continue with current medical management 12. Treatment plan discussed with patient and RN. Patient verbalized understanding. Plan discussed with: Patient, Other (RN) My Orders Orders - VAL SWANSON DNP Procedure Category Date Status Time Azithromycin 500mg/ PHA 08/31/25 Logged 250ml (Zithromax 50 10:00 Glucose Blood PHA 08/31/25 Logged (Accu-Chek Comfort 00:00 Insulin R (Human) PHA 08/31/25 Logged (Insulin R) 00:00 Dextrose 50% Syringe PHA 08/30/25 Logged 19:30 Allergies GARIMA 08/30/25 In Process 19:16 Code Status CODE 08/30/25 Transmitted 19:16 Sodium Chloride 0.9% PHA 08/30/25 Logged 19:30 Oxygen Per Hour RT 08/30/25 Transmitted 19:16 Hydrocodone-Acet PHA 08/30/25 Logged 5/325mg Tab (Nubieber 19:30 Ondansetron Hcl PHA 08/30/25 Logged (Zofran) 19:30 Docusate Sodium PHA 08/30/25 Logged Capsule (Colace 19:30 Complete Blood Count LAB 08/31/25 Verified 04:00 Comprehensive LAB 08/31/25 Verified Metabolic Panel 04:00 Condition: Serious GARIMA 08/30/25 In Process 19:16 Acetaminophen Tablet PHA 08/30/25 Logged (Tylenol Tablet) 19:30 Clear Liq Diet DIET 08/31/25 Transmitted Breakfast Bedrest With Bathroom GARIMA 08/30/25 In Process Privileg 19:16 Sequential GARIMA 08/30/25 In Process Compression Device Potassium Chl PHA 08/30/25 Logged 20meq/100ml 19:30 Problem List: (1) Sepsis, unspecified organism (2) Hypokalemia (3) Elevated liver enzymes (4) UTI (urinary tract infection) (5) Pneumonia, unspecified organism (6) Diabetes mellitus with hyperglycemia Date of Service: Aug 30, 2025 Billing Provider: VAL SWANSON DNP Common Visit Codes: [id number] INP/OBS CARE (HIGH) VAL SWANSON DNP Aug 30, 2025 19:41
[2025-08-30] MEDS ORDERED: NITROGLYCERIN 0.4 MG SL TAB SL PRN (19:45)
[2025-08-30] MEDS ORDERED: MORPHINE SULFATE INJ 2 MG/ml SYRG IV PRN (19:45)
[2025-08-30] MEDS: AZITHROMYCIN 500MG/ 250ML 250 ML IV ONE (19:51)
[2025-08-30] MEDS: SODIUM CHLORIDE 0.9% 1,000 ML IV SCH (20:00)
[2025-08-30] MEDS: POTASSIUM CHL 20MEQ/100ML 100 ML IV SCH (21:48)
[2025-08-31] VITALS (9 sets, daily range): BP systolic 116–127; BP diastolic 79–88; PULSE 88–96; RESP 16–18; TEMP 97–98; O2SAT 95–98
[2025-08-31] MEDS: InsuLIN REG 1unit/0.01ml Soln (100units/ml) SC SCH
[2025-08-31] MEDS: ACCU-CHEK COMFORT CURVE STRIP VI SCH (00:13)
[2025-08-31 06:33] LABS: Hemoglobin 14.2 g/dL (13.5-17.5)
[2025-08-31 06:36] LABS: Hematocrit 41.5 % (41.0-53.0); Mean Corpuscular Hemoglobin 25.7 pg (28.0-32.0); Mean Corpuscular Volume 75.1 fL (80.0-100.0); Nucleated Red Blood Cells % 0.1 %
[2025-08-31 06:56] LABS: Albumin 4.3 g/dL (3.2-4.8); Anion Gap 13 (5-15); BUN/Creatinine Ratio 9.4 (10.0-20.0); Blood Urea Nitrogen 11 mg/dL (9-23); Calcium 9.2 mg/dL (8.7-10.4); Carbon Dioxide 25 mmol/L (20-31); Chloride 101 mmol/L (98-107); Potassium 3.9 mmol/L (3.5-5.1); Sodium 139 mmol/L (136-145); Total Protein 7.4 g/dL (5.7-8.2)
[2025-08-31 07:08] LABS: Alanine Aminotransferase 100 U/L (7-40); Alkaline Phosphatase 205 U/L (46-116); Bilirubin, Total 1.6 mg/dL (0.2-1.0); Glucose 117 mg/dL (74-106)
[2025-08-31] MEDS ORDERED: AZITHROMYCIN 500MG/ 250ML 250 ML IV SCH (10:00)
[2025-08-31] MEDS: ONDANSETRON HCL 4 MG/2 ML VIAL IV PRN (10:39)
--- NOTE | 2025-08-31 11:10 | DVHPN2 ---
Reviewed: Care Plan, H&P, Labs, Medications, Previous Orders, Radiology Changes from previous H/P or p: No Changes Eyes: No Pain, No Vision change, No Conjunctivae inflammation, No Eyelid inflammation, No Other, No Redness ENT: No Ear pain, No Ear discharge, No Nose pain, No Nose discharge, No Nose congestion, No Mouth pain, No Mouth swelling, No Throat pain, No Throat swelling, No Other Cardiovascular: No Chest Pain, No Palpitations, No Orthopnea, No Paroxysmal Noc. Dyspnea, No Edema, No Lt Headedness, No Other Respiratory: No Cough, No Dry, No Shortness of breath, No SOB with excertion, No Wheezing, No Hemoptysis, No Pleuritic Pain, No Sputum, No Other Gastrointestinal: Nausea, Vomiting, Abdominal Pain, Diarrhea; No Constipation, No Melena, No Hematochezia, No Other Genitourinary: No Dysuria, No Frequency, No Incontinence, No Hematuria, No Retention, No Other Musculoskeletal: No other, No neck pain, No shoulder pain, No arm pain, No back pain, No hand pain, No leg pain, No foot pain Skin: No Rash, No Lesions, No Jaundice, No Bruising, No Other Objective Vitals Vital Signs Date Time Temp Pulse Resp B/P (MAP) Pulse Ox O2 Delivery O2 Flow Rate FiO2 08/31/25 05:00 98.0 95 17 116/80 (92) 96 98.0 08/31/25 00:39 Nasal Cannula* 2 28 Intake/Output Intake and Output 08/31/25 06:59 Intake Total 1525 ml Balance 1525 ml Intake Oral 105 ml IV Total 1420 ml Medications Current Medications Medications Dose Ordered Sig/Kathie Route Start Time Stop Time Status Last Admin Dose Admin Azithromycin 250 ml @ 125 mls/hr DAILY IV 08/31/25 10:00 Diagnostic Test (Pha) 1 strip Q6HR 08/31/25 00:00 08/31/25 05:10 1 STRIP Insulin Human Regular Q6HR SC 08/31/25 00:00 Dextrose 50 ml UD PRN IV 08/30/25 19:30 Sodium Chloride 1,000 ml @ 60 mls/hr [id number] IV 08/30/25 19:30 08/30/25 20:00 60 MLS/HR Acetaminophen/ Hydrocodone Bitart 1 tab Q4HP PRN PO 08/30/25 19:30 Ondansetron HCl 4 mg Q4HP PRN IV 08/30/25 19:30 Docusate Sodium 100 mg BIDPRN PRN PO 08/30/25 19:30 Acetaminophen 650 mg Q6HP PRN PO 08/30/25 19:30 Nitroglycerin 0.4 mg Q5MINP PRN SL 08/30/25 19:45 Morphine Sulfate 2 mg Q30M PRN IV 08/30/25 19:45 Laboratory Results Laboratory Tests 08/31/25 05:14 Chemistry Test 08/30/25 17:32 08/31/25 05:14 Albumin 4.6 g/dL (3.2-4.8) 4.3 g/dL (3.2-4.8) Calcium Level 9.7 mg/dL (8.7-10.4) 9.2 mg/dL (8.7-10.4) Total Protein 8.1 g/dL (5.7-8.2) 7.4 g/dL (5.7-8.2) Lipid panel Test 08/30/25 17:32 Lipase 50 U/L (12-53) LFT Test 08/30/25 17:32 08/31/25 05:14 Alanine Aminotransferase (ALT) 102 U/L (7-40) H 100 U/L (7-40) H Alkaline Phosphatase 213 U/L (46-116) H 205 U/L (46-116) H Aspartate Amino Transferase (AST) 65 U/L (13-40) H 72 U/L (13-40) H Total Bilirubin 2.1 mg/dL (0.2-1.0) H 1.6 mg/dL (0.2-1.0) H Urinalysis Test 08/30/25 18:27 Urine Color Dark-yellow (Yellow) Urine Clarity Turbid (Clear) H Urine pH 5.5 (5.0-9.0) Urine Specific [place] 1.033 (1.001-1.035) Urine Protein 1+ (Negative) H Urine Ketones Trace (Negative) Urine Blood Negative /uL (Negative) Urine Nitrite Negative (Negative) Urine Bilirubin 1+ (Negative) Urine Urobilinogen 6 mg/dL (Negative) Urine Leukocyte Esterase Trace /uL (Negative) Urine RBC 3 /hpf (0 - 3) Urine Microscopic WBC 11 /HPF (0-3) H Urine Squamous Epithelial Cells Few /hpf (<5) Urine Amorphous Crystals Few /hpf (None Seen) Urine Bacteria Few /hpf (None Seen) H Urine Mucus Few (None Seen) Urine Glucose Trace mg/dL (Normal) Labs and/or images reviewed: Labs reviewed by me, Image(s) reviewed by me Assessment/Plan Assessment/Plan Sepsis, unspecified organism Acute Hypokalemia replace potassium Elevated liver enzymes: CT abdomen pelvis without contrast negative, gallbladder ultrasound hepatitis panel GI consult Acute urinary tract infection: Blood cultures urine cultures Levaquin Possible Community-acquired pneumonia Gram-positive versus Gram-negative: Levaquin Diabetes mellitus with hyperglycemia: Insulin sliding scale Congestive heart failure COPD History of CVA History of umbilical hernia repair eight months ago [facility] by Dr. Nimesh Dominguez Recent admission [facility] for five days for sepsis secondary to UTI discharged on 08/13/2025 Hypertension Bipolar Chest x-ray negative CT abdomen pelvis without contrast negative Time spent 70 minutes Advanced care planning time 20 minutes Patient is full code [employer] [phone] at bedside Plan discussed with: Patient My Orders Orders - OSCAR HALE MD Procedure Category Date Status Time Drug Screen LAB 08/31/25 Transmitted 10:51 Covid19 Antigen Nita LAB 08/31/25 Transmitted Rapid Influenza A&B LAB 08/31/25 Transmitted 10:51 Date of Service: Aug 31, 2025 Billing Provider: OSCAR HALE MD Common Visit Codes: [id number] CARE 30-74 MIN OSCAR HALE MD Aug 31, 2025 11:09
[2025-08-31] MEDS ORDERED: METH4TAB9 PO (12:29)
[2025-08-31] MEDS ORDERED: ATOR40TA52 PO (12:29)
[2025-08-31] MEDS ORDERED: BUPR10DI TOP (12:29)
[2025-08-31] MEDS ORDERED: ONDA-155 PO (12:29)
--- NOTE | 2025-08-31 12:40 | DVH ---
INDICATION: Nausea Vomiting with the elevated liver enzymes TECHNIQUE: Multiple real-time sonographic images of the abdomen were obtained. COMPARISON: None FINDINGS: Hepatic parenchyma suggests increased echogenicity consistent with steatosis. 17.1 cm. No intrahepatic biliary ductal dilatation is noted. The gallbladder wall measures 0.13 cm and is unremarkable. No gallstones or sludge is seen. The co mmon duct measures 0.35 cm and is unremarkable. No pericholecystic fluid is noted. Sonographic nicolasa y's sign is negative The right kidney measures 10.1 cm. No hydronephrosis. The pancreas is not well visualized due to obscuration from bowel gas. The visualized portions of the IVC and aorta are grossly unremarkable. IMPRESSION: 1. 17.1 cm liver with parenchymal changes consistent with steatosis. 2. Gallbladder appears normal 3. Right kidney appears normal.
[2025-08-31 17:22] LABS: COVID19 ANTIGEN SOFIA FIA NEGATIVE (NEGATIVE)
--- NOTE | 2025-08-31 19:09 | DVHINCON2 ---
Date of service: Aug 31, 2025 History of Present Illness Per HPI - "50-year-old male morbidly obese with past medical history of CHF, COPD, CVA, DM, bipolar disorder, and hypertension who presented to [facility] ED with complaint of intractable nausea and vomiting for the past 1 month. /patient reports that he has been experiencing nausea and vomiting gastric fluid content associated with watery diarrhea, productive cough with yellowish sputum, subjective fever, chills, getting worse today that prompted this visit." GI service consulted for N/V. He is being treated for sepsis/PNA/hypokalemia. He reports N/V since 1 month, on review relates since abx intake. No abd pain/diarrhea/constipation. Has some nause today, but no emesis, tolerated food well. He had EGD/colo few yrs ago, unsure of results Past Medical History Reviewed Past Surgical History Reviewed Family History: FH: bipolar disorder G8 FATHER Hypertension in brother G8 FATHER Allergies: Coded Allergies: Avibactam (Verified Allergy, Unknown, 07/11/24) Ceftazidime (Verified Allergy, Unknown, 07/11/24) Penicillins (Verified Allergy, Unknown, 07/11/24) Home Meds Active Scripts Metronidazole (Flagyl) 500 Mg Tab, 1 TAB PO TID for 7 Days, #21 TAB Prov:LAURA NUNEZ RESIDENT 07/15/24 Levofloxacin Hemihydrate (LEVOFLOXACIN) 750 Mg Tab, 1 TAB PO DAILY for 7 Days, #7 TAB Prov:LAURA NUNEZ RESIDENT 07/15/24 Reported Medications Ondansetron HCl (Ondansetron) 4 Mg Tab, 4 MG PO, TAB 08/31/25 Carvedilol (Carvedilol) 6.25 Mg Tab, 6.25 MG PO for 30 Days, MG 08/31/25 Potassium Chloride (Klor-Con M20) 20 Meq Tab, 20 MEQ PO, TAB 08/31/25 Amiloride HCl (Amiloride Hydrochloride) 5 Mg Tab, 5 MG PO, TAB 08/31/25 Methylprednisolone (Methylprednisolone) 4 Mg Tab, 4 MG PO, MG 08/31/25 Atorvastatin Calcium (ATORVASTATIN CALCIUM) 40 Mg Tab, 1 TAB PO QPM, #90 TAB 3 Refills 08/31/25 Tizanidine Hydrochloride (Zanaflex) 4 Mg Tab, 4 MG PO, TAB 08/31/25 Buprenorphine (BUTRANS) 10 Mcg/Hr Dis, 1 PATCH TOP QWEEKLY, #4 PATCH 1 Refill 08/31/25 Hydrocodone-Acetaminophen (Hydrocodone Bitartrate/AC 7.5-325 mg) 1 Tab Tab, 1 TAB PO, TAB 08/31/25 Morphine Sulfate (Morphine Sulfate Er) 60 Mg Tab, 60 MG PO, TAB 07/14/24 Aspirin (Aspir-Low) 81 Mg Tab, PO DAILY for 30 Days, MG 07/12/24 Fluticasone Propionate (Inhala (Fluticasone Propionate Di) 50 Mcg/Act Aer, IN, AER 07/12/24 Cetirizine Hcl (Zyrtec Allergy) 10 Mg Cap, PO, CAP 07/12/24 Ipratropium [place] Hfa (Atrovent Hfa) 17 Mcg Aer, IN, AER 07/12/24 Montelukast Sodium ([place]) 4 Mg Chw, 25 MG PO DAILY, TAB.CHEW 07/12/24 Aripiprazole (Abilify) 20 Mg Tab, 30 MG PO DAILY, TAB 07/12/24 Hydrocodone-Acetaminophen (Hydrocodone Bitartrate/AC 10-325 mg) 1 Tab Tab, 1 TAB PO BID PRN for PAIN SCALE 1 THRU 6, TAB 07/12/24 Current Medications Current Medications Medications (Trade) Dose Ordered Sig/Kathie Route PRN Reason Start Time Stop Time Status Last Admin Azithromycin 250 ml @ 125 mls/hr DAILY IV 08/31/25 10:00 08/31/25 10:56 DC Diagnostic Test (Pha) (Accu-Chek Comfort Curve T) 1 strip Q6HR 08/31/25 00:00 08/31/25 18:24 Insulin Human Regular (InsuLIN R) Q6HR SC 08/31/25 00:00 Dextrose 50 ml UD PRN IV Blood Sugar LESS THAN 60 08/30/25 19:30 Sodium Chloride 1,000 ml @ 60 mls/hr [id number] IV 08/30/25 19:30 08/30/25 20:00 Acetaminophen/ Hydrocodone Bitart ([place] 5/325MG Tab) 1 tab Q4HP PRN PO MODERATE PAIN (4-6 PAIN SCALE) 08/30/25 19:30 Ondansetron HCl (Zofran) 4 mg Q4HP PRN IV NAUSEA / VOMITING 08/30/25 19:30 08/31/25 16:19 Docusate Sodium (Colace Capsule) 100 mg BIDPRN PRN PO FOR CONSTIPATION 08/30/25 19:30 Acetaminophen (Tylenol Tablet) 650 mg Q6HP PRN PO PAIN SCALE 1-3 OR TEMP>100.4 08/30/25 19:30 Potassium Chloride 100 ml @ 50 mls/hr Q2H IV 08/30/25 19:30 08/30/25 23:29 DC 08/31/25 00:07 Nitroglycerin (Ntrostat Sublingual) 0.4 mg Q5MINP PRN SL FOR CHEST PAIN 08/30/25 19:45 Morphine Sulfate 2 mg Q30M PRN IV FOR CHEST PAIN 08/30/25 19:45 Levofloxacin/ Dextrose 100 ml @ 100 mls/hr DAILY IV 09/01/25 10:00 Review of Systems 14 point ROS negative except mentioned above Vital Signs Vital Signs Date Time Temp Pulse Resp B/P (MAP) Pulse Ox O2 Delivery O2 Flow Rate FiO2 08/31/25 17:14 97.5 88 16 119/86 (97) 95 97.5 08/31/25 08:00 Nasal Cannula* 2 28 Physical Exam GE: in no distress CVS: S1S2+ Lungs: clear Abdomen: soft, nondistended, nontender, BS+ Labs/Diagnostic Data Labs Test 08/31/25 17:39 08/31/25 16:55 08/31/25 05:14 08/30/25 19:30 Range/Units POC Glucose 119 H 70-106 mg/dl Influenza Type A Antigen Negative Negative Influenza Type B Antigen Negative Negative SARS-CoV-2 Antigen (Rapid) Negative NEGATIVE White Blood Count 6.9 # 4.4-10.8 10^3/uL Red Blood Count 5.53 4.5-5.90 10^6/uL Hemoglobin 14.2 13.5-17.5 g/dL Hematocrit 41.5 # 41.0-53.0 % Mean Corpuscular Volume 75.1 L 80.0-100.0 fL Mean Corpuscular Hemoglobin 25.7 L 28.0-32.0 pg Mean Corpuscular Hemoglobin Concent 34.2 32.0-36.0 g/dL Red Cell Distribution Width 15.7 H 11.8-14.3 % Platelet Count 230 140-450 10^3/uL Mean Platelet Volume 8.6 6.9-10.8 fL Neutrophils (%) (Auto) 61.7 37.0-80.0 % Lymphocytes (%) (Auto) 27.5 10.0-50.0 % Monocytes (%) (Auto) 9.8 0.0-12.0 % Eosinophils (%) (Auto) 0.8 0.0-7.0 % Basophils (%) (Auto) 0.2 0.0-2.0 % Neutrophils # (Auto) 4.2 1.6-8.6 10 ^3/uL Lymphocytes # (Auto) 1.9 0.4-5.4 10 ^3/uL Monocytes # (Auto) 0.7 0-1.3 10 ^3/uL Eosinophils # (Auto) 0.1 0-0.8 10 ^3/uL Basophils # (Auto) 0 0-0.2 10 ^3/uL Nucleated Red Blood Cells 0.1 % Sodium Level 139 136-145 mmol/L Potassium Level 3.9 3.5-5.1 mmol/L Chloride Level 101 98-107 mmol/L Carbon Dioxide Level 25 20-31 mmol/L Anion Gap 13 5-15 Blood Urea Nitrogen 11 9-23 mg/dL Creatinine 1.17 0.700-1.30 mg/dL Glomerular Filtration Rate Calc 75 >90 mL/min BUN/Creatinine Ratio 9.4 L 10.0-20.0 Serum Glucose 117 H 74-106 mg/dL Calcium Level 9.2 8.7-10.4 mg/dL Total Bilirubin 1.6 H 0.2-1.0 mg/dL Aspartate Amino Transferase (AST) 72 H 13-40 U/L Alanine Aminotransferase (ALT) 100 H 7-40 U/L Alkaline Phosphatase 205 H 46-116 U/L Total Protein 7.4 5.7-8.2 g/dL Albumin 4.3 3.2-4.8 g/dL Lactic Acid Level 4.7 *H 0.4-2.0 mmol/L Test 08/30/25 18:27 08/30/25 17:32 Range/Units Urine Color Dark-yellow Yellow Urine Clarity Turbid H Clear Urine pH 5.5 5.0-9.0 Urine Specific [place] 1.033 1.001-1.035 Urine Protein 1+ H Negative Urine Ketones Trace Negative Urine Blood Negative Negative /uL Urine Nitrite Negative Negative Urine Bilirubin 1+ Negative Urine Urobilinogen 6 Negative mg/dL Urine Leukocyte Esterase Trace Negative /uL Urine RBC 3 0 - 3 /hpf Urine Microscopic WBC 11 H 0-3 /HPF Urine Squamous Epithelial Cells Few <5 /hpf Urine Amorphous Crystals Few None Seen /hpf Urine Bacteria Few H None Seen /hpf Urine Mucus Few None Seen Urine Glucose Trace Normal mg/dL Lipase 50 12-53 U/L Microbiology Date/Time Source Procedure Growth Status 08/30/25 17:32 Blood Blood Culture - Preliminary NO GROWTH AFTER 24 HOURS OF INCUBATION. Resulted Assessment #Nausea/vomiting, likely 2/2 antibiotics intake #Elevated liver enzymes #Fatty liver/MASH #Sepsis, PNA -Continue supportive care. Antiemetics prn -F/u acute hepatitis panel. Check TB fractionate in am. -Reviewed imaging studies. Fibroscan as out pt -Care plan discussed with pt and RN in detail Thank you for the consult Plan discussed with: Patient, Other LUKE LANDA MD Aug 31, 2025 19:09
[2025-09-01] VITALS (8 sets, daily range): BP systolic 113–136; BP diastolic 75–89; PULSE 79–89; RESP 16–20; TEMP 96.7–97.9; O2SAT 95–100
[2025-09-01] MEDS: HYDROcodone-ACET 5/325MG TAB PO PRN (04:06)
--- NOTE | 2025-09-01 11:18 | DVHPN2 ---
Reviewed: Care Plan, H&P, Labs, Medications, Previous Orders, Radiology Changes from previous H/P or p: No Changes Eyes: No Pain, No Vision change, No Conjunctivae inflammation, No Eyelid inflammation, No Other, No Redness ENT: No Ear pain, No Ear discharge, No Nose pain, No Nose discharge, No Nose congestion, No Mouth pain, No Mouth swelling, No Throat pain, No Throat swelling, No Other Cardiovascular: No Chest Pain, No Palpitations, No Orthopnea, No Paroxysmal Noc. Dyspnea, No Edema, No Lt Headedness, No Other Respiratory: No Cough, No Dry, No Shortness of breath, No SOB with excertion, No Wheezing, No Hemoptysis, No Pleuritic Pain, No Sputum, No Other Gastrointestinal: Nausea, Vomiting, Abdominal Pain, Diarrhea Genitourinary: No Dysuria, No Frequency, No Incontinence, No Hematuria, No Retention, No Other Musculoskeletal: No other, No neck pain, No shoulder pain, No arm pain, No back pain, No hand pain, No leg pain, No foot pain Skin: No Rash, No Lesions, No Jaundice, No Bruising, No Other Objective Vitals Vital Signs Date Time Temp Pulse Resp B/P (MAP) Pulse Ox O2 Delivery O2 Flow Rate FiO2 09/01/25 09:00 97.7 89 20 123/88 (100) 96 97.7 09/01/25 08:00 Nasal Cannula* 2 28 Intake/Output Intake and Output 09/01/25 07:00 Intake Total 425 ml Balance 425 ml Intake Oral 425 ml # Voids 2 Medications Current Medications Medications Dose Ordered Sig/Kathie Route Start Time Stop Time Status Last Admin Dose Admin Diagnostic Test (Pha) 1 strip Q6HR 08/31/25 00:00 09/01/25 06:05 1 STRIP Insulin Human Regular Q6HR SC 08/31/25 00:00 Dextrose 50 ml UD PRN IV 08/30/25 19:30 Sodium Chloride 1,000 ml @ 60 mls/hr [id number] IV 08/30/25 19:30 08/30/25 20:00 60 MLS/HR Acetaminophen/ Hydrocodone Bitart 1 tab Q4HP PRN PO 08/30/25 19:30 09/01/25 04:06 1 TAB Ondansetron HCl 4 mg Q4HP PRN IV 08/30/25 19:30 09/01/25 08:28 4 MG Docusate Sodium 100 mg BIDPRN PRN PO 08/30/25 19:30 Acetaminophen 650 mg Q6HP PRN PO 08/30/25 19:30 Nitroglycerin 0.4 mg Q5MINP PRN SL 08/30/25 19:45 Morphine Sulfate 2 mg Q30M PRN IV 08/30/25 19:45 Levofloxacin/ Dextrose 100 ml @ 100 mls/hr DAILY IV 09/01/25 10:00 09/01/25 08:28 100 MLS/HR Laboratory Results Laboratory Tests 08/31/25 05:14 Urinalysis Test 08/30/25 18:27 Urine Color Dark-yellow (Yellow) Urine Clarity Turbid (Clear) H Urine pH 5.5 (5.0-9.0) Urine Specific [place] 1.033 (1.001-1.035) Urine Protein 1+ (Negative) H Urine Ketones Trace (Negative) Urine Blood Negative /uL (Negative) Urine Nitrite Negative (Negative) Urine Bilirubin 1+ (Negative) Urine Urobilinogen 6 mg/dL (Negative) Urine Leukocyte Esterase Trace /uL (Negative) Urine RBC 3 /hpf (0 - 3) Urine Microscopic WBC 11 /HPF (0-3) H Urine Squamous Epithelial Cells Few /hpf (<5) Urine Amorphous Crystals Few /hpf (None Seen) Urine Bacteria Few /hpf (None Seen) H Urine Mucus Few (None Seen) Urine Glucose Trace mg/dL (Normal) Microbiology Microbiology Date/Time Source Procedure Growth Status 08/30/25 17:32 Blood Blood Culture - Preliminary NO GROWTH AFTER 24 HOURS OF INCUBATION. Resulted Labs and/or images reviewed: Labs reviewed by me, Image(s) reviewed by me Assessment/Plan Assessment/Plan Sepsis, unspecified organism Acute Hypokalemia replace potassium Elevated liver enzymes: CT abdomen pelvis without contrast negative, gallbladder ultrasound shows fatty liver, hepatitis panel GI consult by Dr. Maradiaga appreciated Acute urinary tract infection: Blood cultures negative urine cultures pending, continue Levaquin Possible Community-acquired pneumonia Gram-positive versus Gram-negative: Levaquin Diabetes mellitus with hyperglycemia: Insulin sliding scale Congestive heart failure COPD History of CVA History of umbilical hernia repair eight months ago [facility] by Dr. Nimesh Dominguez Recent admission [facility] for five days for sepsis secondary to UTI discharged on 08/13/2025 Hypertension Bipolar Chest x-ray negative CT abdomen pelvis without contrast negative Time spent 50 minutes Advanced care planning time 20 minutes Patient is full code Amberly [phone] at bedside Plan discussed with: Patient My Orders Orders - OSCAR HALE MD Procedure Category Date Status Time Urine Bacterial ABY 08/31/25 Logged Culture 11:10 Mrsa Screen ABY 08/31/25 In Process 12:13 Date of Service: Sep 01, 2025 Billing Provider: OSCAR HALE MD Common Visit Codes: [id number] INP/OBS CARE(HIGH) OSCAR HALE MD Sep 01, 2025 11:18
[2025-09-01] MEDS: SODIUM CHLORIDE 0.9% 1,000 ML IV ONE (11:49)
[2025-09-01] MEDS: SODIUM CHLORIDE 0.9% 1,000 ML IV SCH (13:42)
[2025-09-01] MEDS: ONDANSETRON HCL 4 MG/2 ML VIAL IV SCH (14:00)
[2025-09-01 18:27] LABS: Cannabinoid Screen, Urine Neg (NEGATIVE); Phencyclidine Screen, Urine Neg (NEGATIVE)
[2025-09-01 18:28] LABS: Amphetamine Screen, Urine Neg (NEGATIVE); Barbiturate Scree,Urine Neg (NEGATIVE); Benzodiazephine Screen, Urine Neg (NEGATIVE); Cocaine Screen, Urine Neg (NEGATIVE); Opiate Scree,Urine Pos (NEGATIVE)
--- NOTE | 2025-09-01 19:54 | DVHPN2 ---
Progress Note - Dictate Date Seen: Sep 01, 2025 Medical Necessity Reason Pt with a Central, PICC or Fol: No Subjective Tolerating diet well vital signs Vital Sign Date Time Temp Pulse Resp B/P (MAP) Pulse Ox O2 Delivery O2 Flow Rate FiO2 09/01/25 16:45 97.9 82 20 135/86 (102) 100 97.9 09/01/25 08:00 Nasal Cannula* 2 28 Total Intake and Output 08/31/25 08/31/25 09/01/25 15:00 23:00 07:00 Intake Total 400 ml 25 ml Balance 400 ml 25 ml medications Current Medications Medications Dose Ordered Sig/Kathie Route Start Time Stop Time Status Last Admin Dose Admin Diagnostic Test (Pha) 1 strip Q6HR 08/31/25 00:00 09/01/25 17:49 1 STRIP Insulin Human Regular Q6HR SC 08/31/25 00:00 Dextrose 50 ml UD PRN IV 08/30/25 19:30 Acetaminophen/ Hydrocodone Bitart 1 tab Q4HP PRN PO 08/30/25 19:30 09/01/25 04:06 1 TAB Ondansetron HCl 4 mg Q4HP PRN IV 08/30/25 19:30 Hold 09/01/25 08:28 4 MG Docusate Sodium 100 mg BIDPRN PRN PO 08/30/25 19:30 Acetaminophen 650 mg Q6HP PRN PO 08/30/25 19:30 Nitroglycerin 0.4 mg Q5MINP PRN SL 08/30/25 19:45 Morphine Sulfate 2 mg Q30M PRN IV 08/30/25 19:45 Levofloxacin/ Dextrose 100 ml @ 100 mls/hr DAILY IV 09/01/25 10:00 09/01/25 08:28 100 MLS/HR Ondansetron HCl 4 mg Q4HR IV 09/01/25 14:00 09/01/25 18:21 4 MG Sodium Chloride 1,000 ml @ 150 mls/hr Q6H40M IV 09/01/25 11:30 09/01/25 13:42 150 MLS/HR objective Ge: in no acute distress CVS: S1S2+ Lungs: clear Abdomen: soft, nondistended, nontender, BS+ laboratory and microbiology Laboratory Tests 08/31/25 05:14 Test 08/31/25 05:14 Range/Units Serum Glucose 117 H 74-106 mg/dL Assessment/Plan #Nausea/vomiting, likely 2/2 antibiotics intake #Elevated liver enzymes #Fatty liver/MASH #Sepsis, PNA -Continue supportive care. Antiemetics prn -F/u acute hepatitis panel. Check TB fractionate in am. -Reviewed imaging studies. Fibroscan as out pt -Care plan discussed with pt and RN in detail Thank you for allowing me to participate in the care of this pt Dietary Evaluation Review Recommendations by RD: Dietary education by RD Comments: 1) Encourage optimal PO intake 2) Advance to 45g CCHO cardiac diet when medically feasible 3) Collect HbA1c 4) Refer to outpatient RD/CDCES for weight management 5) Follow-up with gastroenterology, cardiology, and pulmonology 6) Continue to monitor I&O, labs, and skin integrity Expected Outcomes/Goals: 1) Encourage optimal PO intake 2) Advance to 45g CCHO cardiac diet when medically feasible 3) Collect HbA1c 4) Refer to outpatient RD/CDCES for weight management 5) Follow-up with gastroenterology, cardiology, and pulmonology 6) Continue to monitor I&O, labs, and skin integrity Plan discussed with: Patient, Other LUKE LANDA MD Sep 01, 2025 19:54
[2025-09-02] VITALS (8 sets, daily range): BP systolic 115–130; BP diastolic 72–92; PULSE 86–98; RESP 18–20; TEMP 97.2–98.5; O2SAT 95–98
--- NOTE | 2025-09-02 02:29 | ECG ---
[facility] Test Date: 2025-09-02 Test Time: 02:20:53 Pat Name: ANDREA COE Department: Respiratoy Room: 0294T Gender: M [employer]: velia : 1975 Requested By: VAL SWANSON Order Number: [id number] Reading MD: Max Higginbotham Measurements Intervals [place] Rate: 91 P: 53 IA: 167 QRS: 52 QRSD: 119 T: 26 QT: 388 QTc: 478 Interpretive Statements Sinus rhythm Atrial premature complex Nonspecific intraventricular conduction delay Electronically Signed On 09-07-2025 19:36:06 PDT by Max Higginbotham Please click the below link to view image of tracing.
[2025-09-02 11:53] LABS: Hepatitis A Total Antibody Negative (Negative); Hepatitis B Surface Antigen Negative (Negative); Hepatitis C Antibody Negative (Negative)
--- NOTE | 2025-09-02 12:37 | DVHPN2 ---
Reviewed: Care Plan, H&P, Labs, Medications, Previous Orders, Radiology Changes from previous H/P or p: No Changes Eyes: No Pain, No Vision change, No Conjunctivae inflammation, No Eyelid inflammation, No Other, No Redness ENT: No Ear pain, No Ear discharge, No Nose pain, No Nose discharge, No Nose congestion, No Mouth pain, No Mouth swelling, No Throat pain, No Throat swelling, No Other Cardiovascular: No Chest Pain, No Palpitations, No Orthopnea, No Paroxysmal Noc. Dyspnea, No Edema, No Lt Headedness, No Other Respiratory: No Cough, No Dry, No Shortness of breath, No SOB with excertion, No Wheezing, No Hemoptysis, No Pleuritic Pain, No Sputum, No Other Gastrointestinal: Nausea, Vomiting, Abdominal Pain, Diarrhea Genitourinary: No Dysuria, No Frequency, No Incontinence, No Hematuria, No Retention, No Other Musculoskeletal: No other, No neck pain, No shoulder pain, No arm pain, No back pain, No hand pain, No leg pain, No foot pain Skin: No Rash, No Lesions, No Jaundice, No Bruising, No Other Objective Vitals Vital Signs Date Time Temp Pulse Resp B/P (MAP) Pulse Ox O2 Delivery O2 Flow Rate FiO2 09/02/25 09:00 97.5 86 20 120/79 (93) 97 97.5 09/01/25 20:00 Nasal Cannula* 2 28 Intake/Output Intake and Output 09/02/25 07:00 Intake Total 120 ml Output Total 750 ml Balance -630 ml Intake Oral 120 ml Output Urine Total 750 ml # Voids 1 # Bowel Movements 2 Medications Current Medications Medications Dose Ordered Sig/Kathie Route Start Time Stop Time Status Last Admin Dose Admin Diagnostic Test (Pha) 1 strip Q6HR 08/31/25 00:00 09/02/25 05:46 1 STRIP Insulin Human Regular Q6HR SC 08/31/25 00:00 Dextrose 50 ml UD PRN IV 08/30/25 19:30 Acetaminophen/ Hydrocodone Bitart 1 tab Q4HP PRN PO 08/30/25 19:30 09/01/25 04:06 1 TAB Ondansetron HCl 4 mg Q4HP PRN IV 08/30/25 19:30 Hold 09/01/25 08:28 4 MG Docusate Sodium 100 mg BIDPRN PRN PO 08/30/25 19:30 Acetaminophen 650 mg Q6HP PRN PO 08/30/25 19:30 Nitroglycerin 0.4 mg Q5MINP PRN SL 08/30/25 19:45 Morphine Sulfate 2 mg Q30M PRN IV 08/30/25 19:45 Levofloxacin/ Dextrose 100 ml @ 100 mls/hr DAILY IV 09/01/25 10:00 09/02/25 10:25 100 MLS/HR Ondansetron HCl 4 mg Q4HR IV 09/01/25 14:00 09/02/25 10:25 4 MG Sodium Chloride 1,000 ml @ 150 mls/hr Q6H40M IV 09/01/25 11:30 09/02/25 10:25 150 MLS/HR Laboratory Results Laboratory Tests 08/31/25 05:14 Urinalysis Test 08/30/25 18:27 Urine Color Dark-yellow (Yellow) Urine Clarity Turbid (Clear) H Urine pH 5.5 (5.0-9.0) Urine Specific [place] 1.033 (1.001-1.035) Urine Protein 1+ (Negative) H Urine Ketones Trace (Negative) Urine Blood Negative /uL (Negative) Urine Nitrite Negative (Negative) Urine Bilirubin 1+ (Negative) Urine Urobilinogen 6 mg/dL (Negative) Urine Leukocyte Esterase Trace /uL (Negative) Urine RBC 3 /hpf (0 - 3) Urine Microscopic WBC 11 /HPF (0-3) H Urine Squamous Epithelial Cells Few /hpf (<5) Urine Amorphous Crystals Few /hpf (None Seen) Urine Bacteria Few /hpf (None Seen) H Urine Mucus Few (None Seen) Urine Glucose Trace mg/dL (Normal) Microbiology Microbiology Date/Time Source Procedure Growth Status 08/31/25 10:43 Nose MRSA Screen - Final Complete 08/30/25 17:32 Blood Blood Culture - Preliminary NO GROWTH AFTER 48 HOURS OF INCUBATION. Resulted Labs and/or images reviewed: Labs reviewed by me, Image(s) reviewed by me Assessment/Plan Assessment/Plan Sepsis, unspecified organism Acute Hypokalemia replace potassium Elevated liver enzymes: CT abdomen pelvis without contrast negative, gallbladder ultrasound shows fatty liver, hepatitis panel GI consult by Dr. Maradiaga appreciated Acute urinary tract infection: Blood cultures negative urine cultures pending, continue Levaquin Possible Community-acquired pneumonia Gram-positive versus Gram-negative: Levaquin Diabetes mellitus with hyperglycemia: Insulin sliding scale Congestive heart failure COPD History of CVA History of lupus Bedridden for the last two years secondary to stroke History of umbilical hernia repair eight [address] [facility] by Dr. Nimesh Dominguez Recent admission [facility] for five days for sepsis secondary to UTI discharged on 08/13/2025 Hypertension Bipolar Chest x-ray negative CT abdomen pelvis without contrast negative Time spent 50 minutes Advanced care planning time 20 minutes Patient is full code [employer] [phone] at bedside Plan discussed with: Patient Date of Service: Sep 02, 2025 Billing Provider: OSCAR HALE MD Common Visit Codes: [id number] CARE 30-74 MIN OSCAR HALE MD Sep 02, 2025 12:37
[2025-09-03] VITALS (8 sets, daily range): BP systolic 112–143; BP diastolic 74–94; PULSE 84–91; RESP 16–20; TEMP 97–98.2; O2SAT 96–100
--- NOTE | 2025-09-03 11:32 | DVHPN2 ---
Reviewed: Care Plan, H&P, Labs, Medications, Previous Orders, Radiology Changes from previous H/P or p: No Changes Eyes: No Pain, No Vision change, No Conjunctivae inflammation, No Eyelid inflammation, No Other, No Redness ENT: No Ear pain, No Ear discharge, No Nose pain, No Nose discharge, No Nose congestion, No Mouth pain, No Mouth swelling, No Throat pain, No Throat swelling, No Other Cardiovascular: No Chest Pain, No Palpitations, No Orthopnea, No Paroxysmal Noc. Dyspnea, No Edema, No Lt Headedness, No Other Respiratory: No Cough, No Dry, No Shortness of breath, No SOB with excertion, No Wheezing, No Hemoptysis, No Pleuritic Pain, No Sputum, No Other Gastrointestinal: Nausea, Vomiting, Abdominal Pain, Diarrhea Genitourinary: No Dysuria, No Frequency, No Incontinence, No Hematuria, No Retention, No Other Musculoskeletal: No other, No neck pain, No shoulder pain, No arm pain, No back pain, No hand pain, No leg pain, No foot pain Skin: No Rash, No Lesions, No Jaundice, No Bruising, No Other Objective Vitals Vital Signs Date Time Temp Pulse Resp B/P (MAP) Pulse Ox O2 Delivery O2 Flow Rate FiO2 09/03/25 08:00 Room Air* 0 21 09/03/25 05:00 98.2 86 19 127/74 (91) 98 98.2 Intake/Output Intake and Output 09/03/25 07:00 Intake Total 2635 ml Output Total 501 ml Balance 2134 ml Intake Oral 985 ml IV Total 1650 ml Output Urine Total 500 ml Stool Total 1 ml # Voids 1 Medications Current Medications Medications Dose Ordered Sig/Kathie Route Start Time Stop Time Status Last Admin Dose Admin Diagnostic Test (Pha) 1 strip Q6HR 08/31/25 00:00 09/03/25 06:05 1 STRIP Insulin Human Regular Q6HR SC 08/31/25 00:00 Dextrose 50 ml UD PRN IV 08/30/25 19:30 Acetaminophen/ Hydrocodone Bitart 1 tab Q4HP PRN PO 08/30/25 19:30 09/01/25 04:06 1 TAB Ondansetron HCl 4 mg Q4HP PRN IV 08/30/25 19:30 Hold 09/01/25 08:28 4 MG Docusate Sodium 100 mg BIDPRN PRN PO 08/30/25 19:30 Acetaminophen 650 mg Q6HP PRN PO 08/30/25 19:30 Nitroglycerin 0.4 mg Q5MINP PRN SL 08/30/25 19:45 Morphine Sulfate 2 mg Q30M PRN IV 08/30/25 19:45 Levofloxacin/ Dextrose 100 ml @ 100 mls/hr DAILY IV 09/01/25 10:00 09/02/25 10:25 100 MLS/HR Ondansetron HCl 4 mg Q4HR IV 09/01/25 14:00 09/03/25 06:01 4 MG Sodium Chloride 1,000 ml @ 150 mls/hr Q6H40M IV 09/01/25 11:30 09/03/25 10:57 150 MLS/HR Laboratory Results Laboratory Tests 08/31/25 05:14 Urinalysis Test 08/30/25 18:27 Urine Color Dark-yellow (Yellow) Urine Clarity Turbid (Clear) H Urine pH 5.5 (5.0-9.0) Urine Specific [place] 1.033 (1.001-1.035) Urine Protein 1+ (Negative) H Urine Ketones Trace (Negative) Urine Blood Negative /uL (Negative) Urine Nitrite Negative (Negative) Urine Bilirubin 1+ (Negative) Urine Urobilinogen 6 mg/dL (Negative) Urine Leukocyte Esterase Trace /uL (Negative) Urine RBC 3 /hpf (0 - 3) Urine Microscopic WBC 11 /HPF (0-3) H Urine Squamous Epithelial Cells Few /hpf (<5) Urine Amorphous Crystals Few /hpf (None Seen) Urine Bacteria Few /hpf (None Seen) H Urine Mucus Few (None Seen) Urine Glucose Trace mg/dL (Normal) Microbiology Microbiology Date/Time Source Procedure Growth Status 09/01/25 17:50 Voided Urine Urine Culture - Preliminary Resulted 08/31/25 10:43 Nose MRSA Screen - Final Complete 08/30/25 17:32 Blood Blood Culture - Preliminary NO GROWTH AFTER 72 HOURS OF INCUBATION. Resulted Labs and/or images reviewed: Labs reviewed by me, Image(s) reviewed by me Assessment/Plan Assessment/Plan Sepsis, unspecified organism Acute Hypokalemia replace potassium Elevated liver enzymes: CT abdomen pelvis without contrast negative, gallbladder ultrasound shows fatty liver, hepatitis panel GI consult by Dr. Maradiaga appreciated Acute urinary tract infection: Blood cultures negative urine cultures pending, continue Levaquin Possible Community-acquired pneumonia Gram-positive versus Gram-negative: Levaquin Diabetes mellitus with hyperglycemia: Insulin sliding scale Congestive heart failure COPD History of CVA History of lupus Bedridden for the last two years secondary to stroke History of umbilical hernia repair eight months ago [facility] by Dr. Nimesh Dominguez Recent admission [facility] for five days for sepsis secondary to UTI discharged on 08/13/2025 Hypertension Bipolar Chest x-ray negative CT abdomen pelvis without contrast negative Time spent 50 minutes Advanced care planning time 20 minutes Patient is full code Amberly [phone] at bedside Plan discussed with: Patient, Spouse Date of Service: Sep 03, 2025 Billing Provider: OSCAR HALE MD Common Visit Codes: [id number] INP/OBS CARE(HIGH) OSCAR HALE MD Sep 03, 2025 11:32
--- NOTE | 2025-09-03 11:37 | DVHDS2 ---
Discharge Summary Date of Admission Aug 30, 2025 at 19:35 Date of Discharge: Sep 03, 2025 Admitting Diagnosis Altered mental status Wounds: None Labs/Diagnostic Data: Laboratory Results Test 09/03/25 06:05 09/01/25 19:04 09/01/25 17:50 08/31/25 16:55 POC Glucose 117 mg/dl (70-106) Stool for White Cells None seen Urine Opiates Screen Pos (NEGATIVE) Urine Fentanyl Screen Neg (NEGATIVE) Urine Barbiturates Screen Neg (NEGATIVE) Urine Phencyclidine Screen Neg (NEGATIVE) Urine Amphetamines Screen Neg (NEGATIVE) Urine Benzodiazepines Screen Neg (NEGATIVE) Urine Cocaine Screen Neg (NEGATIVE) Urine Cannabinoids Screen Neg (NEGATIVE) Influenza Type A Antigen Negative (Negative) Influenza Type B Antigen Negative (Negative) SARS-CoV-2 Antigen (Rapid) Negative (NEGATIVE) Test 08/31/25 05:14 08/30/25 19:30 08/30/25 18:27 08/30/25 17:32 White Blood Count 6.9 10^3/uL (4.4-10.8) Red Blood Count 5.53 10^6/uL (4.5-5.90) Hemoglobin 14.2 g/dL (13.5-17.5) Hematocrit 41.5 % (41.0-53.0) Mean Corpuscular Volume 75.1 fL (80.0-100.0) Mean Corpuscular Hemoglobin 25.7 pg (28.0-32.0) Mean Corpuscular Hemoglobin Concent 34.2 g/dL (32.0-36.0) Red Cell Distribution Width 15.7 % (11.8-14.3) Platelet Count 230 10^3/uL (140-450) Mean Platelet Volume 8.6 fL (6.9-10.8) Neutrophils (%) (Auto) 61.7 % (37.0-80.0) Lymphocytes (%) (Auto) 27.5 % (10.0-50.0) Monocytes (%) (Auto) 9.8 % (0.0-12.0) Eosinophils (%) (Auto) 0.8 % (0.0-7.0) Basophils (%) (Auto) 0.2 % (0.0-2.0) Neutrophils # (Auto) 4.2 10 ^3/uL (1.6-8.6) Lymphocytes # (Auto) 1.9 10 ^3/uL (0.4-5.4) Monocytes # (Auto) 0.7 10 ^3/uL (0-1.3) Eosinophils # (Auto) 0.1 10 ^3/uL (0-0.8) Basophils # (Auto) 0 10 ^3/uL (0-0.2) Nucleated Red Blood Cells 0.1 % Sodium Level 139 mmol/L (136-145) Potassium Level 3.9 mmol/L (3.5-5.1) Chloride Level 101 mmol/L (98-107) Carbon Dioxide Level 25 mmol/L (20-31) Anion Gap 13 (5-15) Blood Urea Nitrogen 11 mg/dL (9-23) Creatinine 1.17 mg/dL (0.700-1.30) Glomerular Filtration Rate Calc 75 mL/min (>90) BUN/Creatinine Ratio 9.4 (10.0-20.0) Serum Glucose 117 mg/dL (74-106) Calcium Level 9.2 mg/dL (8.7-10.4) Total Bilirubin 1.6 mg/dL (0.2-1.0) Aspartate Amino Transferase (AST) 72 U/L (13-40) Alanine Aminotransferase (ALT) 100 U/L (7-40) Alkaline Phosphatase 205 U/L (46-116) Total Protein 7.4 g/dL (5.7-8.2) Albumin 4.3 g/dL (3.2-4.8) Hepatitis A Antibody Total Negative (Negative) Hepatitis B Surface Antigen Negative (Negative) Hepatitis B Surface Antibody Negative (Negative) Hepatitis B Core Total Antibody Negative (Negative) Hepatitis C Antibody Negative (Negative) Lactic Acid Level 4.7 mmol/L (0.4-2.0) Urine Color Dark-yellow (Yellow) Urine Clarity Turbid (Clear) Urine pH 5.5 (5.0-9.0) Urine Specific [place] 1.033 (1.001-1.035) Urine Protein 1+ (Negative) Urine Ketones Trace (Negative) Urine Blood Negative /uL (Negative) Urine Nitrite Negative (Negative) Urine Bilirubin 1+ (Negative) Urine Urobilinogen 6 mg/dL (Negative) Urine Leukocyte Esterase Trace /uL (Negative) Urine RBC 3 /hpf (0 - 3) Urine Microscopic WBC 11 /HPF (0-3) Urine Squamous Epithelial Cells Few /hpf (<5) Urine Amorphous Crystals Few /hpf (None Seen) Urine Bacteria Few /hpf (None Seen) Urine Mucus Few (None Seen) Urine Glucose Trace mg/dL (Normal) Lipase 50 U/L (12-53) Other Laboratory Tests 08/31/25 05:14 Brief Hx & Hospital Course: 60-year-old male with a history of CVA COPD congestive heart failure diabetes lupus bedridden for the last two years after the stroke history of umbilical hernia repair eight months ago recent admission at [facility] for complicated UTI history of hypertension bipolar burden by family for altered mental status and confusion found to have complicated UTI treated with Levaquin blood cultures came negative urine cultures were mixed elevated liver enzymes CT abdomen pelvis without contrast was negative gallbladder ultrasound shows fatty liver hepatitis panel negative GI consult by Dr. amador. Patient has moderately improved and alert awake oriented x3 with a stable vital signs being discharged back to [facility] for Levaquin for two weeks IV. The does not want the patient to go to [facility] facility for rehab General Condition stable but poor at the time of discharge Consults/Reason for consult None Operations or Procedures CT abdomen pelvis without contrast Condition at Discharge: Poor Final Diagnosis/Problems List Sepsis, unspecified organism Acute Hypokalemia replace potassium Elevated liver enzymes: CT abdomen pelvis without contrast negative, gallbladder ultrasound shows fatty liver, hepatitis panel GI consult by Dr. Amador appreciated Acute urinary tract infection: Blood cultures negative urine cultures pending, continue Levaquin Possible Community-acquired pneumonia Gram-positive versus Gram-negative: Levaquin Diabetes mellitus with hyperglycemia: Insulin sliding scale Congestive heart failure COPD History of CVA History of lupus Bedridden for the last two years secondary to stroke History of umbilical hernia repair eight months ago [facility] by Dr. Nimesh Dominguez Recent admission [facility] for five days for sepsis secondary to UTI discharged on 08/13/2025 Hypertension Bipolar Chest x-ray negative CT abdomen pelvis without contrast negative Time spent 50 minutes Discharge Disposition: Home with Health Services Discharge Instruct/Medications Diet: Cardiac 2g Na,low cholest Activity: Light activity Follow Up/Referral: Follow up with your primary Dr in one week Resume all previous home medications Medications: Levaquin 500 mg IV daily for 14 days for complicated UTI by home health Scheduled Aripiprazole (Abilify), 30 MG PO DAILY, (Reported) Aspirin (Aspir-Low), Unknown Dose PO DAILY, (Reported) Atorvastatin Calcium (Atorvastatin Calcium), 1 TAB PO QPM, (Reported) Buprenorphine (Butrans), 1 PATCH TOP QWEEKLY, (Reported) Levofloxacin Hemihydrate (Levofloxacin), 1 TAB PO DAILY Metronidazole (Flagyl), 1 TAB PO TID Montelukast Sodium (Singulair), 25 MG PO DAILY, (Reported) Scheduled PRN Hydrocodone-Acetaminophen (Hydrocodone Bitartrate/AC 10-325 mg), 1 TAB PO BID PRN for PAIN SCALE 1 THRU 6, (Reported) Miscellaneous Medications Amiloride HCl (Amiloride Hydrochloride), 5 MG PO, (Reported) Carvedilol (Carvedilol), 6.25 MG PO, (Reported) Cetirizine Hcl (Zyrtec Allergy), Unknown Dose PO, (Reported) Fluticasone Propionate (Inhala (Fluticasone Propionate Di), Unknown Dose IN, (Reported) Hydrocodone-Acetaminophen (Hydrocodone Bitartrate/AC 7.5-325 mg), 1 TAB PO, (Reported) Ipratropium [place] Hfa (Atrovent Hfa), Unknown Dose IN, (Reported) Methylprednisolone (Methylprednisolone), 4 MG PO, (Reported) Morphine Sulfate (Morphine Sulfate Er), 60 MG PO, (Reported) Ondansetron HCl (Ondansetron), 4 MG PO, (Reported) Potassium Chloride (Klor-Con M20), 20 MEQ PO, (Reported) Tizanidine Hydrochloride (Zanaflex), 4 MG PO, (Reported) 36 (Time Taken for discharge summary 36 minutes) Discharge Statement: "Patient was advised to return to the ER or call 911 if any headaches, dizziness, shortness of breath, chest pain, abdominal pain, bleeding, fevers, or worsening of medical condition. Patient was counseled about treatment plan, medications, possible side effects, patientverbalized understanding. All questions were answered to the best of my ability. This discharge took greater then 30 minutes in planning, reviewing documentation, counseling the patient, and discussing with other team members." ASSESSMENT ASSESSMENT Hospital Course Uneventful Assessment Sepsis, unspecified organism Acute Hypokalemia replace potassium Elevated liver enzymes: CT abdomen pelvis without contrast negative, gallbladder ultrasound shows fatty liver, hepatitis panel GI consult by Dr. Amador appreciated Acute urinary tract infection: Blood cultures negative urine cultures pending, continue Levaquin Possible Community-acquired pneumonia Gram-positive versus Gram-negative: Levaquin Diabetes mellitus with hyperglycemia: Insulin sliding scale Congestive heart failure COPD History of CVA History of lupus Bedridden for the last two years secondary to stroke History of umbilical hernia repair eight months ago [facility] by Dr. Nimesh Dominguez Recent admission [facility] for five days for sepsis secondary to UTI discharged on 08/13/2025 Hypertension Bipolar Chest x-ray negative CT abdomen pelvis without contrast negative Time spent 50 minutes Date of Service: Sep 03, 2025 Billing Provider: OSCAR HALE MD Common Visit Codes: [id number] DISCH DAY >30min OSCAR HALE MD Sep 03, 2025 11:37
[2025-09-04] VITALS (8 sets, daily range): BP systolic 108–144; BP diastolic 77–98; PULSE 84–107; RESP 17–20; TEMP 97.8–98.5; O2SAT 99–100
--- NOTE | 2025-09-04 11:39 | DVHPN2 ---
Reviewed: Care Plan, H&P, Labs, Medications, Previous Orders, Radiology Changes from previous H/P or p: No Changes Eyes: No Pain, No Vision change, No Conjunctivae inflammation, No Eyelid inflammation, No Other, No Redness ENT: No Ear pain, No Ear discharge, No Nose pain, No Nose discharge, No Nose congestion, No Mouth pain, No Mouth swelling, No Throat pain, No Throat swelling, No Other Cardiovascular: No Chest Pain, No Palpitations, No Orthopnea, No Paroxysmal Noc. Dyspnea, No Edema, No Lt Headedness, No Other Respiratory: No Cough, No Dry, No Shortness of breath, No SOB with excertion, No Wheezing, No Hemoptysis, No Pleuritic Pain, No Sputum, No Other Gastrointestinal: Nausea, Vomiting, Abdominal Pain, Diarrhea Genitourinary: No Dysuria, No Frequency, No Incontinence, No Hematuria, No Retention, No Other Musculoskeletal: No other, No neck pain, No shoulder pain, No arm pain, No back pain, No hand pain, No leg pain, No foot pain Skin: No Rash, No Lesions, No Jaundice, No Bruising, No Other Objective Vitals Vital Signs Date Time Temp Pulse Resp B/P (MAP) Pulse Ox O2 Delivery O2 Flow Rate FiO2 09/04/25 08:36 98.4 89 17 108/77 (87) 99 98.4 09/03/25 20:00 Room Air* 0 21 Intake/Output Intake and Output 09/04/25 07:00 Intake Total 2550 ml Output Total 1400 ml Balance 1150 ml Intake Oral 975 ml IV Total 1575 ml Output Urine Total 1400 ml # Voids 2 # Bowel Movements 1 Medications Current Medications Medications Dose Ordered Sig/Kathie Route Start Time Stop Time Status Last Admin Dose Admin Diagnostic Test (Pha) 1 strip Q6HR 08/31/25 00:00 09/04/25 06:00 1 STRIP Insulin Human Regular Q6HR SC 08/31/25 00:00 Dextrose 50 ml UD PRN IV 08/30/25 19:30 Acetaminophen/ Hydrocodone Bitart 1 tab Q4HP PRN PO 08/30/25 19:30 09/01/25 04:06 1 TAB Ondansetron HCl 4 mg Q4HP PRN IV 08/30/25 19:30 Hold 09/01/25 08:28 4 MG Docusate Sodium 100 mg BIDPRN PRN PO 08/30/25 19:30 Acetaminophen 650 mg Q6HP PRN PO 08/30/25 19:30 Nitroglycerin 0.4 mg Q5MINP PRN SL 08/30/25 19:45 Morphine Sulfate 2 mg Q30M PRN IV 08/30/25 19:45 Levofloxacin/ Dextrose 100 ml @ 100 mls/hr DAILY IV 09/01/25 10:00 09/04/25 10:18 100 MLS/HR Ondansetron HCl 4 mg Q4HR IV 09/01/25 14:00 09/04/25 05:52 4 MG Sodium Chloride 1,000 ml @ 150 mls/hr Q6H40M IV 09/01/25 11:30 09/04/25 10:03 150 MLS/HR Laboratory Results Laboratory Tests 08/31/25 05:14 Urinalysis Test 08/30/25 18:27 Urine Color Dark-yellow (Yellow) Urine Clarity Turbid (Clear) H Urine pH 5.5 (5.0-9.0) Urine Specific [place] 1.033 (1.001-1.035) Urine Protein 1+ (Negative) H Urine Ketones Trace (Negative) Urine Blood Negative /uL (Negative) Urine Nitrite Negative (Negative) Urine Bilirubin 1+ (Negative) Urine Urobilinogen 6 mg/dL (Negative) Urine Leukocyte Esterase Trace /uL (Negative) Urine RBC 3 /hpf (0 - 3) Urine Microscopic WBC 11 /HPF (0-3) H Urine Squamous Epithelial Cells Few /hpf (<5) Urine Amorphous Crystals Few /hpf (None Seen) Urine Bacteria Few /hpf (None Seen) H Urine Mucus Few (None Seen) Urine Glucose Trace mg/dL (Normal) Microbiology Microbiology Date/Time Source Procedure Growth Status 09/01/25 17:50 Voided Urine Urine Culture - Final Complete 08/31/25 10:43 Nose MRSA Screen - Final Complete 08/30/25 17:32 Blood Blood Culture - Preliminary NO GROWTH AFTER 72 HOURS OF INCUBATION. Resulted Labs and/or images reviewed: Labs reviewed by me, Image(s) reviewed by me Assessment/Plan Assessment/Plan Sepsis, unspecified organism Acute Hypokalemia replace potassium Elevated liver enzymes: CT abdomen pelvis without contrast negative, gallbladder ultrasound shows fatty liver, hepatitis panel GI consult by Dr. Maradiaga appreciated Acute urinary tract infection: Blood cultures negative urine cultures negative continue Levaquin Possible Community-acquired pneumonia Gram-positive versus Gram-negative: Levaquin Diabetes mellitus with hyperglycemia: Insulin sliding scale Congestive heart failure COPD History of CVA History of lupus Bedridden for the last two years secondary to stroke History of umbilical hernia repair eight months ago [facility] by Dr. Nimesh Dominguez Recent admission [facility] for five days for sepsis secondary to UTI discharged on 08/13/2025 Hypertension Bipolar Chest x-ray negative CT abdomen pelvis without contrast negative Mechanical fall in the hospital: CT head ordered Time spent 50 minutes Advanced care planning time 20 minutes Patient is full code Amberly [phone] at bedside Discharged home on home health on 09/03/2025, social media marketer making arrangement Plan discussed with: Patient My Orders Orders - OSCAR HALE MD Procedure Category Date Status Time Discharge DISCHARGE 09/03/25 Transmitted 11:32 Consistent DIET 09/03/25 Transmitted Carb(Ccho)Diabetes Lunch Insert Midline ORDERS 09/03/25 Transmitted 13:19 Change Midline GARIMA 09/03/25 Transmitted Dressing Q7 Day 13:[address] 09/04/25 Logged 11:16 Date of Service: Sep 04, 2025 Billing Provider: OSCAR HALE MD Common Visit Codes: [id number] INP/OBS CARE(HIGH) OSCAR HALE MD Sep 04, 2025 11:39
--- NOTE | 2025-09-04 12:13 | DVH ---
CT HEAD WITHOUT CONTRAST Indication: S/P Fall EXAM DATE: 09/04/2025 11:37 AM COMPARISON: None TECHNIQUE: CT of the head without intravenous contrast. RADIATION DOSE: CTDIvol: 63.2 mGy, DLP: 1245 mGy*cm FINDINGS: There is no intracranial hemorrhage. There is no extra-axial fluid, mass, mass effect or midline shif t. The ventricles are midline and normal in size. Basilar cisterns are patent. There mild periventric ular and subcortical white matter chronic microvascular ischemic changes. Mild global cerebral volume loss Mastoids are well pneumatized. Bilateral maxillary sinus disease, [id number]-left.. Imaged po rtion of the orbits are unremarkable. IMPRESSION: No intracranial hemorrhage or mass effect.
--- NOTE | 2025-09-04 21:30 | DVHPN2 ---
Progress Note - Dictate Date Seen: Sep 04, 2025 (Late entryPatient seen at 3:00 p.m.) Medical Necessity Reason Pt with a Central, PICC or Fol: No Subjective Patient seen at bedside resting comfortably He denies any further nausea and vomiting He is tolerating a soft mechanical diet and was eating a sandwich vital signs Vital Sign Date Time Temp Pulse Resp B/P (MAP) Pulse Ox O2 Delivery O2 Flow Rate FiO2 09/04/25 16:47 97.8 107 19 144/81 (102) 100 97.8 09/04/25 08:00 Nasal Cannula* 2 28 Total Intake and Output 09/03/25 09/03/25 09/04/25 15:00 23:00 07:00 Intake Total 100 ml 2450 ml Output Total 1100 ml 300 ml Balance 100 ml -1100 ml 2150 ml laboratory and microbiology Laboratory Tests 08/31/25 05:14 Test 08/31/25 05:14 Range/Units Serum Glucose 117 H 74-106 mg/dL Problems(with codes): (1) Sepsis, unspecified organism (2) Diabetes mellitus with hyperglycemia (3) Hypokalemia (4) Pneumonia, unspecified organism (5) Elevated liver enzymes Prognosis Plan Discharge planning is in progress Patient is going home with home health care Outpatient follow up with GI Services to monitor his results labs and discuss elective panendoscopy once again thank you for allowing me to participate in the care of this patient Dietary Evaluation Review Recommendations by RD: Dietary education by RD Comments: 1) Encourage optimal PO intake 2) Advance to 45g CCHO cardiac diet when medically feasible 3) Collect HbA1c 4) Refer to outpatient RD/CDCES for weight management 5) Follow-up with gastroenterology, cardiology, and pulmonology 6) Continue to monitor I&O, labs, and skin integrity Expected Outcomes/Goals: 1) Encourage optimal PO intake 2) Advance to 45g CCHO cardiac diet when medically feasible 3) Collect HbA1c 4) Refer to outpatient RD/CDCES for weight management 5) Follow-up with gastroenterology, cardiology, and pulmonology 6) Continue to monitor I&O, labs, and skin integrity Plan discussed with: Patient FLORENCE GOTTI MD Sep 04, 2025 21:30
[2025-09-05] MEDS ORDERED: SEMA1INJ2 SC (14:44)
== END 2025-09-04 17:17 | disposition home health service (06) | DRG 872 ==
LOC: ER 16:44 → EDBD 16:44 → OVERFLOW 19:35 → TELE-WESTW 23:40
PROVIDERS: ADMIT Family Medicine; ATTEND Family Medicine
PROC: 05HB33Z Insertion of Infusion Device into Right Basilic Vein, Percutaneous Approach (ICD-10-PCS; principal; 2025-09-03)
PROC: B54MZZA Ultrasonography of Right Upper Extremity Veins, Guidance (ICD-10-PCS; 2025-09-03)
DX: A41.9 Sepsis, unspecified organism (principal); N39.0 Urinary tract infection, site not specified; J44.0 Chronic obstructive pulmonary disease with (acute) lower respiratory infection; Z68.41 Body mass index [BMI] 40.0-44.9, adult; A09 Infectious gastroenteritis and colitis, unspecified; E87.6 Hypokalemia; E11.65 Type 2 diabetes mellitus with hyperglycemia; I11.0 Hypertensive heart disease with heart failure; K76.0 Fatty (change of) liver, not elsewhere classified; F31.9 Bipolar disorder, unspecified; I50.9 Heart failure, unspecified; E66.01 Morbid (severe) obesity due to excess calories; Z74.01 Bed confinement status; Z86.73 Personal history of transient ischemic attack (TIA), and cerebral infarction without residual deficits; Z88.0 Allergy status to penicillin; Z79.82 Long term (current) use of aspirin; Z79.899 Other long term (current) drug therapy; Z82.49 Family history of ischemic heart disease and other diseases of the circulatory system
CPT/HCPCS: 36415; 70450; 71045; 74176; 76705; 80053; 80307; 81001; 82962; 83605; 83690; 85025; 85048; 86704; 86706; 86708; 86803; 87040; 87081; 87086; 87340; 87426; 87804; 93005; G0378; J1956; J2405; J3480

== ENCOUNTER 2025-09-05 12:14 | Inpatient (IN) | payer MEDICARE, MEDICAID ==
[~2025-09-05] VITALS: Ht 180.3 cm; Wt 133.0 kg
[~2025-09-05 12:14] MED LIST changes: +ATOR40TA52 PO; +BUPR10DI TOP; +METH4TAB9 PO; +ONDA-155 PO
--- NOTE | 2025-09-05 13:47 | ED.PDOC ---
Altered Mental Status HPI Comments This is a 50 year old male BIBA presenting to the ED with chief complaint of ALOC. EMS reports patient had [facility], being sent home with IV antibiotics due to a UTI he is currently dealing with. Patient does not know why he is at the hospital at this time and is A/O x2. Patient denies any abdominal pain, urinary symptoms, dizziness, headache, fever, or chills. Chief Complaint: ALOC Time Seen by MD: 13:46 Reviewed Notes: Nurses Notes, [employer] Equipment Mechanic Notes, Medications, Allergies Allergies: Coded Allergies: Avibactam (Verified Allergy, Unknown, 07/11/24) Ceftazidime (Verified Allergy, Unknown, 07/11/24) Penicillins (Verified Allergy, Unknown, 07/11/24) Home Meds Active Scripts Metronidazole (Flagyl) 500 Mg Tab, 1 TAB PO TID for 7 Days, #21 TAB Prov:LAURA NUNEZ RESIDENT 07/15/24 Levofloxacin Hemihydrate (LEVOFLOXACIN) 750 Mg Tab, 1 TAB PO DAILY for 7 Days, #7 TAB Prov:LAURA NUNEZ RESIDENT 07/15/24 Reported Medications Ondansetron HCl (Ondansetron) 4 Mg Tab, 4 MG PO, TAB 08/31/25 Carvedilol (Carvedilol) 6.25 Mg Tab, 6.25 MG PO for 30 Days, MG 08/31/25 Potassium Chloride (Klor-Con M20) 20 Meq Tab, 20 MEQ PO, TAB 08/31/25 Amiloride HCl (Amiloride Hydrochloride) 5 Mg Tab, 5 MG PO, TAB 08/31/25 Methylprednisolone (Methylprednisolone) 4 Mg Tab, 4 MG PO, MG 08/31/25 Atorvastatin Calcium (ATORVASTATIN CALCIUM) 40 Mg Tab, 1 TAB PO QPM, #90 TAB 3 Refills 08/31/25 Tizanidine Hydrochloride (Zanaflex) 4 Mg Tab, 4 MG PO, TAB 08/31/25 Buprenorphine (BUTRANS) 10 Mcg/Hr Dis, 1 PATCH TOP QWEEKLY, #4 PATCH 1 Refill 08/31/25 Hydrocodone-Acetaminophen (Hydrocodone Bitartrate/AC 7.5-325 mg) 1 Tab Tab, 1 TAB PO, TAB 08/31/25 Morphine Sulfate (Morphine Sulfate Er) 60 Mg Tab, 60 MG PO, TAB 8/17/24 Aspirin (Aspir-Low) 81 Mg Tab, PO DAILY for 30 Days, MG 07/12/24 Fluticasone Propionate (Inhala (Fluticasone Propionate Di) 50 Mcg/Act Aer, IN, AER 07/12/24 Cetirizine Hcl (Zyrtec Allergy) 10 Mg Cap, PO, CAP 07/12/24 Ipratropium [place] Hfa (Atrovent Hfa) 17 Mcg Aer, IN, AER 07/12/24 Montelukast Sodium ([place]ulair) 4 Mg Chw, 25 MG PO DAILY, TAB.CHEW 07/12/24 Aripiprazole (Abilify) 20 Mg Tab, 30 MG PO DAILY, TAB 07/12/24 Hydrocodone-Acetaminophen (Hydrocodone Bitartrate/AC 10-325 mg) 1 Tab Tab, 1 TAB PO BID PRN for PAIN SCALE 1 THRU 6, TAB 07/12/24 Information Source: Patient, Emergency Med Personnel Mode of Arrival: EMS Severity: Moderate Timing: Hours Duration: Since onset Prehospital treatment: None Quality: Change in Behavior, Confusion Recent: Urinary Symptoms Past Medical History PAST MEDICAL HISTORY: CHF, COPD, CVA, DM, HTN, UTI'S Surgical History: Hernia Repair Family History Family History: Reviewed,noncontributory to illness Social History Smoker: Non-Smoker Alcohol: Denies ETOH Use Drugs: Denies Drug Use Lives In: Home Constitutional: denies: chills, diaphoresis, fatigue, fever, malaise, sweats, weakness, others EENTM: denies: blurred vision, double vision, ear bleeding, ear discharge, ear drainage, ear pain, ear ringing, eye pain, eye redness, hearing loss, mouth pain, mouth swelling, nasal discharge, nose bleeding, nose congestion, nose pain, photophobia, tearing, throat pain, throat swelling, voice changes, others Respiratory: denies: cough, hemoptysis, orthopnea, SOB at rest, shortness of breath, SOB with excertion, stridor, wheezing, others Cardiovascular: denies: chest pain, dizzy spells, diaphoresis, Dyspnea on exertion, edema, irregular heart beat, left arm pain, lightheadedness, palpitations, PND, syncope, others Gastrointestinal: denies: abdomen distended, abdominal pain, blood streaked bowels, constipated, diarrhea, dysphagia, difficulty swallowing, hematemesis, melena, nausea, poor appetite, poor fluid intake, rectal bleeding, rectal pain, vomiting, others Genitourinary: denies: burning, dysuria, flank pain, frequency, hematuria, incontinence, penile discharge, penile sore, pain, testicle pain, testicle s welling, urgency, others Neurological: denies: dizziness, fainting, headache, left sided numbness, left sided weakness, numbness, paresthesia, pre-existing deficit, right sided numbness, right sided weakness, seizure, speech problems, tingling, tremors, weakness, others Musculoskeletal: denies: back pain, gout, joint pain, joint swelling, muscle pain, muscle stiffness, neck pain, others Integumetry: denies: bruises, change in color, change in hair/nails, dryness, laceration, lesions, lumps, rash, wounds, others Allergic/Immunocompromised: denies: Difficulty Healing, Frequent Infections, Hives, Itching, others Hematologic/Lymphatic: denies: anemia, blood clots, easy bleeding, easy bruising, swollen glands, others Endocrine: denies: excessive hunger, excessive sweating, excessive thirst, excessive urination, flushing, intolerance to cold, intolerance to heat, unexplained weight gain, unexplained weight loss, others Psychiatric: denies: anxiety, bipolar disorder, depression, hopeless, panic disorder, schizophrenia, sleepless, suicidal, others Unable to Obtain due to: Altered Mental Status Physical Exam General Appearance: No Apparent Distress, Normal, Other (Pleasantly confused) HEENT: Normal ENT Inspection, Pharynx Normal, TMs Normal Neck: Full Range of Motion, Non-Tender, Normal, Normal Inspection Respiratory: Chest Non-Tender, Lungs Clear, No Accessory Muscle Use, No Respiratory Distress, Normal Breath Sounds Cardiovascular: No Edema, No JVD, No Murmur, No Gallop, Normal Peripheral Pulses, Regular Rate/Rhythm Breast Exam: Deferred Gastrointestinal: No Organomegaly, Non Tender, No Pulsatile Mass, Normal Bowel Sounds, Soft Genitalia: Deferred Pelvic: Deferred Rectal: Deferred Extremities: No calf tenderness, Normal capillary refill, Normal inspection, Normal range of motion, Non-tender, No pedal edema Musculoskeletal : Apperance: Normal Neurologic: Alert, public health advisor II-XII nml as Tested, No Motor Deficits, Normal Affect, Normal Mood, No Sensory Deficits Cerebellar Function: Normal Reflexes: Normal Skin: Dry, Normal Color, Warm Lymphatic: No Adenopathy Was a procedure done? Was a procedure done?: No Differential Diagnosis (ALOC) Differential Diagnosis: Dehydration, Hypoglycemia, Encephalopathy X-Ray, Labs, Meds, VS Vital Signs Date Time Temp Pulse Resp B/P (MAP) Pulse Ox O2 Delivery O2 Flow Rate FiO2 09/05/25 12:15 98.3 100 22 161/99 97 98.3 Lab Test 09/05/25 15:50 09/05/25 14:10 Range/Units Troponin I High Sensitivity 15 18 </=54 ng/L White Blood Count 8.4 4.4-10.8 10^3/uL Red Blood Count 5.28 4.5-5.90 10^6/uL Hemoglobin 13.3 L 13.5-17.5 g/dL Hematocrit 39.7 L 41.0-53.0 % Mean Corpuscular Volume 75.1 L 80.0-100.0 fL Mean Corpuscular Hemoglobin 25.1 L 28.0-32.0 pg Mean Corpuscular Hemoglobin Concent 33.4 32.0-36.0 g/dL Red Cell Distribution Width 16.0 H 11.8-14.3 % Platelet Count 196 140-450 10^3/uL Mean Platelet Volume 8.2 6.9-10.8 fL Neutrophils (%) (Auto) 61.5 37.0-80.0 % Lymphocytes (%) (Auto) 26.6 10.0-50.0 % Monocytes (%) (Auto) 8.6 0.0-12.0 % Eosinophils (%) (Auto) 3.0 0.0-7.0 % Basophils (%) (Auto) 0.3 0.0-2.0 % Neutrophils # (Auto) 5.2 1.6-8.6 10 ^3/uL Lymphocytes # (Auto) 2.2 0.4-5.4 10 ^3/uL Monocytes # (Auto) 0.7 0-1.3 10 ^3/uL Eosinophils # (Auto) 0.2 0-0.8 10 ^3/uL Basophils # (Auto) 0 0-0.2 10 ^3/uL Nucleated Red Blood Cells 0.1 % Sodium Level 140 136-145 mmol/L Potassium Level 3.3 L 3.5-5.1 mmol/L Chloride Level 104 98-107 mmol/L Carbon Dioxide Level 21 20-31 mmol/L Anion Gap 15 5-15 Blood Urea Nitrogen 8 L 9-23 mg/dL Creatinine 0.86 0.700-1.30 mg/dL Glomerular Filtration Rate Calc 104 >90 mL/min BUN/Creatinine Ratio 9.3 L 10.0-20.0 Serum Glucose 117 H 74-106 mg/dL Calcium Level 8.5 L 8.7-10.4 mg/dL B-Type Natriuretic Peptide 9.69 0-100 pg/mL Time of 1ST Reevaluation: 14:45 Reevaluation 1ST: Unchanged Patient Education/Counseling: Diagnosis, Treatment Family Education/Counseling: No Family Present SEPSIS Sepsis Screen Date sepsis recognized/suspect: Sep 05, 2025 Time Sepsis recognized/suspect: 1214 Recent Procedure: No On Antibiotic Therapy: Yes Respiratory Rate >20: No Heart Rate >90: Yes Temp<36 C (96.8 F) or >38.3 C: No SBP <90 or MAP <65 mmHG: No New Acute Mental Status Change: No Is the patient on CPAP, BIPAP,: No Physician Orders Urinalysis (09/05/25 13:51) Chest Portable (09/05/25 13:51) Electrocardigram (09/05/25 13:51) Troponin-I Hs (09/05/25 16:51) Electrocardigram (09/05/25 14:51) Electrocardigram (09/05/25 16:51) Head Without Contrast (09/05/25 16:32) Vital Signs Date Time Temp Pulse Resp B/P (MAP) Pulse Ox O2 Delivery O2 Flow Rate FiO2 09/05/25 12:15 98.3 100 22 161/99 97 98.3 Laboratory Tests Test 09/05/25 14:10 White Blood Count 8.4 10^3/uL (4.4-10.8) Departure 1 Departure Time of Disposition: 17:09 (Patient with a worsening altered mental status. With the patient for further workup and expert consultation) Impression: Primary Impression: Acute metabolic encephalopathy Disposition: ADMITTED INPATIENT Admit to: Med Surg Condition: Serious Critical Care Note Critical Care Time?: Yes Critical care comment: Altered mental status Authorized and Performed by: Sam Snowden MD Total critical care time: Approximately 42 minutes Due to a high probability of clinically significant, life threatening deterioration, the patient required my highest level of preparedness to intervene emergently and I personally spent this critical care time directly and personally managing the patient. This critical care time included obtaining a history; examining the patient; pulse oximetry; ordering and review of studies; arranging urgent treatment with development of a management plan; evaluation of patient's response to treatment; frequent reassessment; and, discussions with other providers. This critical care time was performed to assess and manage the high probability of imminent, life-threatening deterioration that could result in multi-organ failure. It was exclusive of separately billable procedures and treating other patients and teaching time. Please see my other sections and the rest of the note for further information on patient assessment and treatment. Stability Stability form required: No Heart Score Heart Score: Heart Score Response (Comments) Value History N/A 0 EKG N/A 0 Age N/A 0 Risk Factors N/A 0 Troponin N/A 0 Total 0 I personally scribed for SAM SNOWDEN MD ([email or web address]) on 09/05/25 at 13:47. Electronically submitted by Vinay Small ([email or web address]). SAM SNOWDEN MD Sep 05, 2025 13:47
[2025-09-05 14:39] LABS: Hematocrit 39.7 % (41.0-53.0); Hemoglobin 13.3 g/dL (13.5-17.5); Mean Corpuscular Hemoglobin 25.1 pg (28.0-32.0); Mean Corpuscular Volume 75.1 fL (80.0-100.0); Nucleated Red Blood Cells % 0.1 %
[2025-09-05] MEDS ORDERED: SEMA1INJ2 SC (14:44)
[2025-09-05 15:11] LABS: Chloride 104 mmol/L (98-107); Sodium 140 mmol/L (136-145)
[2025-09-05 15:12] LABS: Anion Gap 15 (5-15); Carbon Dioxide 21 mmol/L (20-31)
[2025-09-05 15:15] LABS: Calcium 8.5 mg/dL (8.7-10.4); Potassium 3.3 mmol/L (3.5-5.1)
[2025-09-05 15:18] LABS: BUN/Creatinine Ratio 9.3 (10.0-20.0); Blood Urea Nitrogen 8 mg/dL (9-23); Glucose 117 mg/dL (74-106)
--- NOTE | 2025-09-05 17:49 | DVH ---
EXAM: CT HEAD WITHOUT CONTRAST INDICATION: ams TECHNIQUE: CT of the head without intravenous contrast. Radiation Dose Information: CT Dose: CTDI volume is 64.03 mGy. Dose-length product is 1261.54 mGy*cm The dose indicators for CT are the volume Computed Tomography (CT) Dose Index (CTDIvol) and the Dose Length Product (DLP), and are measured in units of mGy and mGy-cm, respectively. These indicators are not patient dose, but values generated from the CT scanner acquisition factors. The report includes radiation exposure data for exposures received during this examination. COMPARISON: CT HEAD WITHOUT CONTRAST on DOS: 09/04/25 FINDINGS: There is no evidence of acute intracranial hemorrhage, extra-axial collection, mass effect, midline s hift, herniation or hydrocephalus. The ventricles, sulci and cisterns are age appropriate. The guevara-white differentiation is intact. Patchy periventricular and subcortical white matter hypoattenuation is nonspecific but may be related to small vessel ischemic disease. The visualized paranasal sinuses and mastoid air cells are clear. The surrounding soft tissues and osseous structures are unremarkable. IMPRESSION: No acute intracranial abnormality.
[2025-09-05 18:29] VITALS: PULSE 95; RESP 14; O2SAT 97
[2025-09-05] MEDS ORDERED: ONDANSETRON HCL 4 MG/2 ML VIAL IV PRN (22:45)
[2025-09-05] MEDS ORDERED: ACETAMINOPHEN 325 MG TAB PO PRN (22:45)
[2025-09-05] MEDS ORDERED: DOCUSATE SOD 100 MG CAP PO PRN (22:45)
[2025-09-05] MEDS ORDERED: HYDROcodone-ACET 5/325MG TAB PO PRN (22:45)
[2025-09-05] MEDS ORDERED: DEXTROSE (50%) 50ML SYRG IV PRN (22:45)
[2025-09-05] MEDS: POTASSIUM CHL 20 Meq TABLET PO ONE (23:19)
--- NOTE | 2025-09-05 23:24 | DVHHP2 ---
History of Present Illness Reason for Visit: Acute metabolic encephalopathy History of Present Illness The patient is a 50-year-old male morbidly obese with past medical history of COPD, congestive heart failure, CVA, diabetes mellitus, hypertension, and UTIs who presented to [facility] ED for evaluation of altered level of consciousness. As reported by EMS, patient was discharged from [facility] home yesterday with IV antibiotic regimen for UTI. Patient was seen and evaluated in the ED, laboratory data shows WBC 8.4, hemoglobin 13.3, hematocrit 39.7, glucose 196, sodium 140, potassium 3.3, BUN 8, creatinine 0.86, glucose 117, troponin 18, BNP 9.69, blood pressure 146/104, heart rate 100, temperature 98.3 F, O2 saturation 96% on room air. Head CT showed no acute intracranial abnormality. Please see medication orders section in the computer. On my assessment, patient denied chest pain, no headache, dizziness, diaphoresis, shortness of breaths, no diarrhea, nausea, vomiting, fever, no chills. Patient was admitted for further evaluation and medical management. Past Medical History CHF, COPD, CVA, DM, HTN, UTI'S Past Surgical History Hernia Repair Family History Reviewed, noncontributory to the management of this case. Past Social History The patient lives at home, denies smoking, alcohol or illicit drugs abuse. Review of Systems Constitutional: Yes: Weakness; No: Fever, Chills, Sweats, Malaise, Other Eyes: No: Pain, Vision change, Conjunctivae inflammation, Eyelid inflammation, Other, Redness ENT: No: Ear pain, Ear discharge, Nose pain, Nose discharge, Nose congestion, Mouth pain, Mouth swelling, Throat pain, Throat swelling, Other Respiratory: No: Cough, Dry, Shortness of breath, SOB with excertion, Wheezing, Hemoptysis, Pleuritic Pain, Sputum, Wheezing, Other Cardiovascular: No: Chest Pain, Palpitations, Orthopnea, Paroxysmal Noc. Dyspnea, Edema, Lt Headedness, Other Gastrointestinal: No: Nausea, Vomiting, Abdominal Pain, Diarrhea, Constipation, Melena, Hematochezia, Other Genitourinary: No Dysuria, No Frequency, No Incontinence, No Hematuria, No Retention, No Other Skin: No: Rash, Lesions, Jaundice, Bruising, Other Neurological: Confusion, Other (Altered level of consciousness); No: Weakness, Numbness, Incoordination, Change in speech, Seizures Allergies: Coded Allergies: Avibactam (Verified Allergy, Unknown, 07/11/24) Ceftazidime (Verified Allergy, Unknown, 07/11/24) Penicillins (Verified Allergy, Unknown, 07/11/24) Medications Current Medications Medications Dose Ordered Sig/Kathie Route Start Time Stop Time Status Last Admin Dose Admin Aspirin 81 mg DAILY PO 09/06/25 10:00 Atorvastatin Calcium 40 mg HS PO 09/06/25 22:00 Carvedilol 12.5 mg Q12HR PO 09/06/25 10:00 Clonidine HCl 0.1 mg Q4HP PRN PO 09/05/25 22:45 Diagnostic Test (Pha) 1 strip ACHS 09/06/25 07:00 Insulin Human Regular ACHS SC 09/06/25 07:00 Dextrose 50 ml UD PRN IV 09/05/25 22:45 Sodium Chloride 10 ml Q8HR IV 09/06/25 06:00 Acetaminophen/ Hydrocodone Bitart 1 tab Q4HP PRN PO 09/05/25 22:45 Ondansetron HCl 4 mg Q4HP PRN IV 09/05/25 22:45 Docusate Sodium 100 mg BIDPRN PRN PO 09/05/25 22:45 Acetaminophen 650 mg Q6HP PRN PO 09/05/25 22:45 Exam Vital Signs Vital Signs Date Time Temp Pulse Resp B/P (MAP) Pulse Ox O2 Delivery O2 Flow Rate FiO2 09/05/25 22:00 101 16 146/104 (118) 95 09/05/25 20:00 98.3 98.3 09/05/25 19:30 Room Air* 0 21 General Appearance: Alert, Cooperative, No acute distress, Other (Oriented x2) HEENT: Atraumatic, PERRLA, EOMI, Mucous membr. moist/pink Respiratory: Normal air movement Cardiovascular: Regular rate, Normal S1, Normal S2, No murmurs Abdominal: Normal bowel sounds, Soft, No tenderness, No hepatospenomegaly, No masses Extremities: No clubbing, No cyanosis, No edema, Normal pulses, No tenderness/swelling Skin: No rashes, No significant lesion Neuro: Normal speech, Normal tone, Sensation intact, Cranial nerves 3-12 NL, Reflexes 2+, Other (Generalized weakness) Psych/Mental Status: Mood NL, Other (Altered mental status) Labs/Xrays Labs Test 09/05/25 18:11 09/05/25 14:10 Range/Units Troponin I High Sensitivity 16 </=54 ng/L White Blood Count 8.4 4.4-10.8 10^3/uL Red Blood Count 5.28 4.5-5.90 10^6/uL Hemoglobin 13.3 L 13.5-17.5 g/dL Hematocrit 39.7 L 41.0-53.0 % Mean Corpuscular Volume 75.1 L 80.0-100.0 fL Mean Corpuscular Hemoglobin 25.1 L 28.0-32.0 pg Mean Corpuscular Hemoglobin Concent 33.4 32.0-36.0 g/dL Red Cell Distribution Width 16.0 H 11.8-14.3 % Platelet Count 196 140-450 10^3/uL Mean Platelet Volume 8.2 6.9-10.8 fL Neutrophils (%) (Auto) 61.5 37.0-80.0 % Lymphocytes (%) (Auto) 26.6 10.0-50.0 % Monocytes (%) (Auto) 8.6 0.0-12.0 % Eosinophils (%) (Auto) 3.0 0.0-7.0 % Basophils (%) (Auto) 0.3 0.0-2.0 % Neutrophils # (Auto) 5.2 1.6-8.6 10 ^3/uL Lymphocytes # (Auto) 2.2 0.4-5.4 10 ^3/uL Monocytes # (Auto) 0.7 0-1.3 10 ^3/uL Eosinophils # (Auto) 0.2 0-0.8 10 ^3/uL Basophils # (Auto) 0 0-0.2 10 ^3/uL Nucleated Red Blood Cells 0.1 % Sodium Level 140 136-145 mmol/L Potassium Level 3.3 L 3.5-5.1 mmol/L Chloride Level 104 98-107 mmol/L Carbon Dioxide Level 21 20-31 mmol/L Anion Gap 15 5-15 Blood Urea Nitrogen 8 L 9-23 mg/dL Creatinine 0.86 0.700-1.30 mg/dL Glomerular Filtration Rate Calc 104 >90 mL/min BUN/Creatinine Ratio 9.3 L 10.0-20.0 Serum Glucose 117 H 74-106 mg/dL Calcium Level 8.5 L 8.7-10.4 mg/dL B-Type Natriuretic Peptide 9.69 0-100 pg/mL PATIENT: ANDREA COE JACCT: [id number] UNIT: [id number] : 1975 LOC: ER ROOM / BED: / AGE / SEX: 50 / M ADM STATUS: REG ER SERVICE 1632 ORDERING PHYSICIAN: NISH MARINA MD PROCEDURE(s): HWOCT - HEAD WITHOUT CONTRAST REASON: ams ORDER NUMBER(s): [id number], ACCESSION NUMBER(s): [id number] EXAM: CT HEAD WITHOUT CONTRAST INDICATION: ams TECHNIQUE: CT of the head without intravenous contrast. Radiation Dose Information: CT Dose: CTDI volume is 64.03 mGy. Dose-length product is 1261.54 mGy*cm The dose indicators for CT are the volume Computed Tomography (CT) Dose Index (CTDIvol) and the Dose Length Product (DLP), and are measured in units of mGy and mGy-cm, respectively. These indicators are not patient dose, but values generated from the CT scanner acquisition factors. The report includes radiation exposure data for exposures received during this examination. COMPARISON: CT HEAD WITHOUT CONTRAST on DOS: 09/04/25 FINDINGS: There is no evidence of acute intracranial hemorrhage, extra-axial collection, mass effect, midline shift, herniation or hydrocephalus. The ventricles, sulci and cisterns are age appropriate. The guevara-white differentiation is intact. Patchy periventricular and subcortical white matter hypoattenuation is no nspecific but may be related to small vessel ischemic disease. The visualized paranasal sinuses and mastoid air cells are clear. The surrounding soft tissues and osseous structures are unremarkable. IMPRESSION: No acute intracranial abnormality. SEPSIS Sepsis Screen Date sepsis recognized/suspect: Sep 05, 2025 Time Sepsis recognized/suspect: 1929 Recent Procedure: No On Antibiotic Therapy: Yes Respiratory Rate >20: No Heart Rate >90: No Temp<36 C (96.8 F) or >38.3 C: No SBP <90 or MAP <65 mmHG: No New Acute Mental Status Change: No Is the patient on CPAP, BIPAP,: No Physician Orders Head Without Contrast (09/05/25 16:32) Consistent Carb(Ccho)Diabetes (09/06/25 Breakfast) Aspirin Tablet (09/06/25 10:00) Atorvastatin (Lipitor) (09/06/25 22:00) Carvedilol Tablet (Coreg Tablet) (09/06/25 10:00) Clonidine Hcl Tablet (Catapres Tablet) (09/05/25 22:45) Glucose Blood (Accu-Chek Comfort Curve T (09/06/25 07:00) Insulin R (Human) (Insulin R) (09/06/25 07:00) Dextrose 50% Syringe (09/05/25 22:45) Allergies (09/05/25 22:45) Code Status (09/05/25 22:45) Sodium Chloride Lock (Saline Lock Ns) (09/06/25 06:00) Oxygen Per Hour (09/05/25 22:45) Hydrocodone-Acet 5/325mg Tab ([place] 5/32 (09/05/25 22:45) Ondansetron Hcl (Zofran) (09/05/25 22:45) Docusate Sodium Capsule (Colace Capsule) (09/05/25 22:45) Complete Blood Count (09/06/25 04:00) Comprehensive Metabolic Panel (09/06/25 04:00) Condition: Serious (09/05/25 22:45) Acetaminophen Tablet (Tylenol Tablet) (09/05/25 22:45) Bedrest With Bathroom Privileg (09/05/25 22:45) Maintain Bed Rest (09/05/25 22:45) Sequential Compression Device (09/05/25 ) Vital Signs Date Time Temp Pulse Resp B/P (MAP) Pulse Ox O2 Delivery O2 Flow Rate FiO2 09/05/25 22:00 101 16 146/104 (118) 95 09/05/25 20:00 98.3 97 14 132/66 (88) 98 98.3 09/05/25 20:00 95 09/05/25 19:30 Room Air* 0 21 09/05/25 18:29 95 14 97 Room Air* 0 21 09/05/25 18:29 97.9 95 14 129/93 (105) 97 97.9 Laboratory Tests Test 09/05/25 14:10 White Blood Count 8.4 10^3/uL (4.4-10.8) Medications Medications Dose Ordered Sig/Kathie Route Start Time Stop Time Status Last Admin Dose Admin Potassium Chloride 20 meq ONCE ONCE PO 09/05/25 22:45 09/05/25 22:58 DC 09/05/25 23:19 20 MEQ Assessment/Plan Assessment/Plan Acute metabolic encephalopathy Hypokalemia Morbid obesity Generalized weakness Plan 1. Admit to telemetry unit 2. Breathing treatment 3. Pain control management 4. Management of fluids and electrolytes 5. Consultation for hospitalist 6. Diagnostic tests chest x-ray 7. DVT prophylaxis-on SCDs 8. Repeat labs CBC, CMP in a.m. 9. Continue with current medical management 10. Treatment plan discussed with patient and RN. Patient verbalized understanding. Plan discussed with: Patient, Other (RN) My Orders Orders - VAL SWANSON DNP Procedure Category Date Status Time Consistent DIET 09/06/25 Transmitted Carb(Ccho)Diabetes Breakfast Aspirin Tablet PHA 09/06/25 In Process 10:00 Atorvastatin (Lipitor) PHA 09/06/25 In Process 22:00 Carvedilol Tablet PHA 09/06/25 In Process (Coreg Tablet) 10:00 Clonidine Hcl Tablet PHA 09/05/25 In Process (Catapres Tablet) 22:45 Glucose Blood PHA 09/06/25 In Process (Accu-Chek Comfort 07:00 Insulin R (Human) PHA 09/06/25 In Process (Insulin R) 07:00 Dextrose 50% Syringe PHA 09/05/25 In Process 22:45 Allergies GARIMA 09/05/25 In Process 22:45 Code Status CODE 09/05/25 Transmitted 22:45 Sodium Chloride Lock PHA 09/06/25 In Process (Saline Lock Ns) 06:00 Oxygen Per Hour RT 09/05/25 Transmitted 22:45 Hydrocodone-Acet PHA 09/05/25 In Process 5/325mg Tab ([place] 22:45 Ondansetron Hcl PHA 09/05/25 In Process (Zofran) 22:45 Docusate Sodium PHA 09/05/25 In Process Capsule (Colace 22:45 Complete Blood Count LAB 09/06/25 Verified 04:00 Comprehensive LAB 09/06/25 Verified Metabolic Panel 04:00 Condition: Serious GARIMA 09/05/25 In Process 22:45 Acetaminophen Tablet PHA 09/05/25 In Process (Tylenol Tablet) 22:45 Bedrest With Bathroom GARIMA 09/05/25 In Process Privileg 22:45 Maintain Bed Rest GARIMA 09/05/25 In Process 22:45 Sequential GARIMA 09/05/25 In Process Compression Device Problem List: (1) Acute metabolic encephalopathy (2) Hypokalemia (3) Morbid obesity (4) Generalized weakness Date of Service: Sep 05, 2025 Billing Provider: VAL SWANSON DNP Common Visit Codes: [id number] INP/OBS CARE (HIGH) VAL SWANSON DNP Sep 05, 2025 23:24
[2025-09-05] MEDS ORDERED: NITROGLYCERIN 0.4 MG SL TAB SL PRN (23:30)
[2025-09-05] MEDS ORDERED: MORPHINE SULFATE INJ 2 MG/ml SYRG IV PRN (23:30)
[2025-09-06] VITALS (7 sets, daily range): BP systolic 106–174; BP diastolic 78–95; PULSE 90–114; RESP 14–22; TEMP 97.8–98.8; O2SAT 93–97
[2025-09-06 02:17] LABS: Urine Protein, UAD TRACE (Negative)
[2025-09-06] MEDS: SODIUM CHLOR 0.9% PF (SALINE LOCK) 10ML VIAL/SYR IV SCH (06:00)
[2025-09-06 06:01] LABS: Albumin 4.3 g/dL (3.2-4.8); Anion Gap 16 (5-15); BUN/Creatinine Ratio 11.3 (10.0-20.0); Blood Urea Nitrogen 9 mg/dL (9-23); Calcium 9.0 mg/dL (8.7-10.4); Chloride 104 mmol/L (98-107); Glucose 98 mg/dL (74-106); Potassium 3.6 mmol/L (3.5-5.1); Sodium 140 mmol/L (136-145); Total Protein 7.0 g/dL (5.7-8.2)
[2025-09-06 06:14] LABS: Alanine Aminotransferase 104 U/L (7-40); Alkaline Phosphatase 178 U/L (46-116); Bilirubin, Total 1.7 mg/dL (0.2-1.0); Carbon Dioxide 20 mmol/L (20-31)
[2025-09-06] MEDS: InsuLIN REG 1unit/0.01ml Soln (100units/ml) SC SCH (07:00)
[2025-09-06 07:20] LABS: Hematocrit 44.2 % (41.0-53.0); Hemoglobin 14.9 g/dL (13.5-17.5); Mean Corpuscular Hemoglobin 25.8 pg (28.0-32.0); Mean Corpuscular Volume 76.4 fL (80.0-100.0); Nucleated Red Blood Cells % 0.5 %
[2025-09-06] MEDS: ACCU-CHEK COMFORT CURVE STRIP VI SCH (09:34)
[2025-09-06] MEDS: CARVEDILOL 12.5 MG TAB PO SCH (10:47)
--- NOTE | 2025-09-06 10:52 | DVH ---
CHEST RADIOGRAPH Indication: ams Technique: Single frontal view of the chest was obtained COMPARISON: XY CHEST XRAY 1 VIEW on DOS: 08/30/25, XY CHEST TWO VIEWS ROUTINE on DOS: 12/27/24, XY CHES T PORTABLE on DOS: 07/12/24 FINDINGS: Lines and Tubes: None Lungs: Clear Pleura: No effusion. No pneumothorax. Cardiomediastinal contours: Cardiomegaly Bones: Unremarkable IMPRESSION: Cardiomegaly
--- NOTE | 2025-09-06 17:02 | DVHPN2 ---
Subjective Patient was seen and evaluated by me, remained confused, there was no family member including at bedside. Changes from previous H/P or p: No Changes Eyes: No Pain, No Vision change, No Conjunctivae inflammation, No Eyelid inflammation, No Other, No Redness ENT: No Ear pain, No Ear discharge, No Nose pain, No Nose discharge, No Nose congestion, No Mouth pain, No Mouth swelling, No Throat pain, No Throat swelling, No Other Cardiovascular: No Chest Pain, No Palpitations, No Orthopnea, No Paroxysmal Noc. Dyspnea, No Edema, No Lt Headedness, No Other Respiratory: No Cough, No Dry, No Shortness of breath, No SOB with excertion, No Wheezing, No Hemoptysis, No Pleuritic Pain, No Sputum, No Other Gastrointestinal: No Nausea, No Vomiting, No Abdominal Pain, No Diarrhea, No Constipation, No Melena, No Hematochezia, No Other Genitourinary: No Dysuria, No Frequency, No Incontinence, No Hematuria, No Retention, No Other Skin: No Rash, No Lesions, No Jaundice, No Bruising, No Other Objective Vitals Vital Signs Date Time Temp Pulse Resp B/P (MAP) Pulse Ox O2 Delivery O2 Flow Rate FiO2 09/06/25 15:00 97.6 96 18 114/78 (90) 97 97.6 09/06/25 08:50 Room Air* 0 21 Exam HEENT pupils are reactive Neck is supple CV is S1-S2 regular rate and rhythm Respiratory diminished breath sounds bases GI positive bowel sound 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 Medications Current Medications Medications Dose Ordered Sig/Kathie Route Start Time Stop Time Status Last Admin Dose Admin Aspirin 81 mg DAILY PO 09/06/25 10:00 09/06/25 10:47 81 MG Atorvastatin Calcium 40 mg HS PO 09/06/25 22:00 Carvedilol 12.5 mg Q12HR PO 09/06/25 10:00 09/06/25 10:47 12.5 MG Clonidine HCl 0.1 mg Q4HP PRN PO 09/05/25 22:45 Diagnostic Test (Pha) 1 strip ACHS 09/06/25 07:00 09/06/25 12:33 1 STRIP Insulin Human Regular ACHS SC 09/06/25 07:00 Dextrose 50 ml UD PRN IV 09/05/25 22:45 Sodium Chloride 10 ml Q8HR IV 09/06/25 06:00 09/06/25 14:04 10 ML Acetaminophen/ Hydrocodone Bitart 1 tab Q4HP PRN PO 09/05/25 22:45 Ondansetron HCl 4 mg Q4HP PRN IV 09/05/25 22:45 Docusate Sodium 100 mg BIDPRN PRN PO 09/05/25 22:45 Acetaminophen 650 mg Q6HP PRN PO 09/05/25 22:45 Nitroglycerin 0.4 mg Q5MINP PRN SL 09/05/25 23:30 Morphine Sulfate 2 mg Q30M PRN IV 09/05/25 23:30 Laboratory Results Laboratory Tests 09/06/25 05:01 Chemistry Test 09/06/25 05:01 Albumin 4.3 g/dL (3.2-4.8) Calcium Level 9.0 mg/dL (8.7-10.4) Total Protein 7.0 g/dL (5.7-8.2) LFT Test 09/06/25 05:01 Alanine Aminotransferase (ALT) 104 U/L (7-40) H Alkaline Phosphatase 178 U/L (46-116) H Aspartate Amino Transferase (AST) 62 U/L (13-40) H Total Bilirubin 1.7 mg/dL (0.2-1.0) H Urinalysis Test 09/06/25 01:20 Urine Color Yellow (Yellow) Urine Clarity Clear (Clear) Urine pH 6.0 (5.0-9.0) Urine Specific [place] 1.028 (1.001-1.035) Urine Protein Trace (Negative) H Urine Ketones 1+ (Negative) H Urine Blood Negative /uL (Negative) Urine Nitrite Negative (Negative) Urine Bilirubin 1+ (Negative) Urine Urobilinogen 6 mg/dL (Negative) Urine Leukocyte Esterase Negative /uL (Negative) Urine RBC 2 /hpf (0 - 3) Urine Microscopic WBC 2 /HPF (0-3) Urine Squamous Epithelial Cells Few /hpf (<5) Urine Bacteria None seen /hpf (None Seen) Urine Hyaline Casts Few /lpf (0 - 2) Urine Mucus Few (None Seen) Urine Glucose Normal mg/dL (Normal) Assessment/Plan Assessment/Plan 50-year-old male with a known history of COPD, congestive heart failure, history of CVA x3 currently bed-bound, diabetes mellitus type 2, hypertension, recurrent UTI who was recently hospitalized was sent home on IV antibiotics with a midline for two weeks of Levaquin presented to the hospital with altered mental status found to have 1. Acute metabolic encephalopathy 2. Recurrent urinary tract infection 3. Diabetes mellitus type 2 4. Hypertension 5. History of CVA currently bed-bound status 6. Chronic congestive heart failure unspecified 7. Morbid obesity classIII -continue antibiotics, aspiration precaution, fall precaution and pressure ulcer precautions. Follow up final blood culture Plan discussed with: Other Date of Service: Sep 06, 2025 Billing Provider: REDD KISER MD Common Visit Codes: [id number] INP/OBS CARE(HIGH) REDD KISER MD Sep 06, 2025 17:02
[2025-09-06] MEDS: ATORVASTATIN 20 MG TAB PO SCH (23:53)
[2025-09-07] VITALS (8 sets, daily range): BP systolic 111–135; BP diastolic 76–98; PULSE 83–96; RESP 16–20; TEMP 97.5–99.2; O2SAT 0–98
[2025-09-07] MEDS: D5W/SOD CHLO 0.9% 1,000 ML IV SCH (14:58)
[2025-09-07] MEDS ORDERED: CLINIMIX PER PHARMACY 0 ML IV SCH (17:45)
[2025-09-07] MEDS ORDERED: DEXTROSE (50%) 50ML SYRG IV SCH (17:45)
[2025-09-07] MEDS: InsuLIN REG 1unit/0.01ml Soln (100units/ml) SC SCH (18:00)
[2025-09-07] MEDS: ACCU-CHEK COMFORT CURVE STRIP VI SCH (18:00)
--- NOTE | 2025-09-07 18:10 | DVHPN2 ---
Subjective Patient was seen and evaluated by me, remained confused, plan of care discussed with the bedside RN as well as patient's at bedside. As per patient has not been eating. Changes from previous H/P or p: No Changes Eyes: No Pain, No Vision change, No Conjunctivae inflammation, No Eyelid inflammation, No Other, No Redness ENT: No Ear pain, No Ear discharge, No Nose pain, No Nose discharge, No Nose congestion, No Mouth pain, No Mouth swelling, No Throat pain, No Throat swelling, No Other Cardiovascular: No Chest Pain, No Palpitations, No Orthopnea, No Paroxysmal Noc. Dyspnea, No Edema, No Lt Headedness, No Other Respiratory: No Cough, No Dry, No Shortness of breath, No SOB with excertion, No Wheezing, No Hemoptysis, No Pleuritic Pain, No Sputum, No Other Gastrointestinal: No Nausea, No Vomiting, No Abdominal Pain, No Diarrhea, No Constipation, No Melena, No Hematochezia, No Other Genitourinary: No Dysuria, No Frequency, No Incontinence, No Hematuria, No Retention, No Other Skin: No Rash, No Lesions, No Jaundice, No Bruising, No Other Objective Vitals Vital Signs Date Time Temp Pulse Resp B/P (MAP) Pulse Ox O2 Delivery O2 Flow Rate FiO2 09/07/25 17:00 99.2 94 19 135/98 (110) 95 99.2 09/07/25 08:00 Room Air* 0 21 Intake/Output Intake and Output 09/07/25 07:00 Output Total 400 ml Balance -400 ml Output Urine Total 400 ml Exam HEENT pupils are reactive Neck is supple CV is S1-S2 regular rate and rhythm Respiratory diminished breath sounds bases GI positive bowel sound 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 Medications Current Medications Medications Dose Ordered Sig/Kathie Route Start Time Stop Time Status Last Admin Dose Admin Aspirin 81 mg DAILY PO 09/06/25 10:00 09/06/25 10:47 81 MG Atorvastatin Calcium 40 mg HS PO 09/06/25 22:00 09/06/25 23:53 40 MG Carvedilol 12.5 mg Q12HR PO 09/06/25 10:00 09/06/25 23:55 12.5 MG Clonidine HCl 0.1 mg Q4HP PRN PO 09/05/25 22:45 Sodium Chloride 10 ml Q8HR IV 10/10/25 06:00 09/07/25 14:58 10 ML Acetaminophen/ Hydrocodone Bitart 1 tab Q4HP PRN PO 09/05/25 22:45 Ondansetron HCl 4 mg Q4HP PRN IV 09/05/25 22:45 Docusate Sodium 100 mg BIDPRN PRN PO 09/05/25 22:45 Acetaminophen 650 mg Q6HP PRN PO 09/05/25 22:45 Nitroglycerin 0.4 mg Q5MINP PRN SL 09/05/25 23:30 Morphine Sulfate 2 mg Q30M PRN IV 09/05/25 23:30 Dextrose/Sodium Chloride 1,000 ml @ 70 mls/hr [id number] IV 09/07/25 13:00 09/07/25 14:58 70 MLS/HR Amino Acids 0 ml @ 0 mls/hr PER PHARMACY IV 09/07/25 17:45 Amino Acids/ Electrolytes/ Dextrose 1,000 ml @ 41 mls/hr DAILY@2200 IV 09/07/25 22:00 Diagnostic Test (Pha) 1 strip Q6HR 09/07/25 18:00 Insulin Human Regular FOLLOW SLIDING SCALE Q6HR SC 09/07/25 18:00 Dextrose 50 ml UD IV 09/07/25 17:45 Laboratory Results Laboratory Tests 09/06/25 05:01 Urinalysis Test 09/06/25 01:20 Urine Color Yellow (Yellow) Urine Clarity Clear (Clear) Urine pH 6.0 (5.0-9.0) Urine Specific [place] 1.028 (1.001-1.035) Urine Protein Trace (Negative) H Urine Ketones 1+ (Negative) H Urine Blood Negative /uL (Negative) Urine Nitrite Negative (Negative) Urine Bilirubin 1+ (Negative) Urine Urobilinogen 6 mg/dL (Negative) Urine Leukocyte Esterase Negative /uL (Negative) Urine RBC 2 /hpf (0 - 3) Urine Microscopic WBC 2 /HPF (0-3) Urine Squamous Epithelial Cells Few /hpf (<5) Urine Bacteria None seen /hpf (None Seen) Urine Hyaline Casts Few /lpf (0 - 2) Urine Mucus Few (None Seen) Urine Glucose Normal mg/dL (Normal) Assessment/Plan Assessment/Plan 50-year-old male with a known history of COPD, congestive heart failure, history of CVA x3 currently bed-bound, diabetes mellitus type 2, hypertension, recurrent UTI who was recently hospitalized was sent home on IV antibiotics with a midline for two weeks of Levaquin presented to the hospital with altered mental status found to have 1. Acute metabolic/toxic encephalopathy 2. Recurrent urinary tract infection 3. Diabetes mellitus type 2 4. Hypertension 5. History of CVA currently bed-bound status 6. Chronic congestive heart failure unspecified 7. Morbid obesity classIII -removed with a transdermal pain patch, start Clinimix until the swallow evaluation is done. -continue antibiotics, aspiration precaution, fall precaution and pressure ulcer precautions. Follow up final blood culture Plan discussed with: Spouse My Orders Orders - REDD KISER MD Procedure Category Date Status Time * Swallow Request ST 09/07/25 Transmitted 12:59 D5w/Sod Chlo 0.9% PHA 09/07/25 In Process (D5w Ns 0.9%) 13:00 Clinimix Per Pharmacy [facility] 09/07/25 In Process 15:56 Blood Culture ABY 09/07/25 In Process 15:58 Clinimix Per Pharmacy PHA 09/07/25 In Process 17:45 Amino Acid Infusion PHA 09/07/25 In Process In D10w (Clinimix 4. 22:00 Glucose Blood PHA 09/07/25 In Process (Accu-Chek Comfort 18:00 Insulin R (Human) PHA 09/07/25 In Process (Insulin R) 18:00 Dextrose 50% Syringe PHA 09/07/25 In Process 17:45 Comprehensive LAB 09/07/25 Logged Metabolic Panel 17:45 Magnesium LAB 09/07/25 Logged 17:45 Phosphorus LAB 09/07/25 Logged 17:45 Triglycerides LAB 09/07/25 Logged 17:45 Pre Albumin LAB 09/07/25 Logged 17:45 Date of Service: Sep 07, 2025 Billing Provider: REDD KISER MD Common Visit Codes: [id number] INP/OBS CARE(HIGH) REDD KISER MD Sep 07, 2025 18:10
[2025-09-07] MEDS: AMINO ACID INFUSION IN D10W 1,000 ML IV SCH (21:36)
[2025-09-08] VITALS (8 sets, daily range): BP systolic 118–136; BP diastolic 4–98; PULSE 90–95; RESP 18–20; TEMP 97.2–97.9; O2SAT 0–97
[2025-09-08 06:43] LABS: Albumin 4.0 g/dL (3.2-4.8); Anion Gap 13 (5-15); BUN/Creatinine Ratio 14.5 (10.0-20.0); Bilirubin, Total 0.9 mg/dL (0.2-1.0); Blood Urea Nitrogen 12 mg/dL (9-23); Calcium 8.8 mg/dL (8.7-10.4); Carbon Dioxide 23 mmol/L (20-31); Chloride 106 mmol/L (98-107); Magnesium 2.0 mg/dL (1.6-2.6); Sodium 142 mmol/L (136-145); Total Protein 6.7 g/dL (5.7-8.2)
[2025-09-08 06:54] LABS: Alanine Aminotransferase 71 U/L (7-40); Alkaline Phosphatase 144 U/L (46-116); Glucose 123 mg/dL (74-106); Potassium 3.2 mmol/L (3.5-5.1)
[2025-09-08 08:12] LABS: Triglycerides 131 mg/dL (< 150)
[2025-09-08] MEDS: POTASSIUM PHOSPHATE 26.4 MEQ in SODIUM CHL 0.9% 100 ML IV ONE (13:00)
[2025-09-08 15:39] LABS: Nucleated Red Blood Cells % 0.4 %
[2025-09-08 15:41] LABS: Hematocrit 41.4 % (41.0-53.0); Hemoglobin 13.9 g/dL (13.5-17.5); Mean Corpuscular Hemoglobin 25.9 pg (28.0-32.0); Mean Corpuscular Volume 77.1 fL (80.0-100.0)
[2025-09-08 16:37] LABS: Albumin 3.8 g/dL (3.2-4.8); Bilirubin, Total 0.8 mg/dL (0.2-1.0); Carbon Dioxide 21 mmol/L (20-31); Total Protein 6.5 g/dL (5.7-8.2)
[2025-09-08 17:07] LABS: Alanine Aminotransferase 65 U/L (7-40); Alkaline Phosphatase 133 U/L (46-116); Calcium 8.5 mg/dL (8.7-10.4); Chloride 108 mmol/L (98-107)
[2025-09-08 17:08] LABS: Glucose 124 mg/dL (74-106); Potassium 3.2 mmol/L (3.5-5.1)
[2025-09-08 17:40] LABS: Anion Gap 12 (5-15); Sodium 141 mmol/L (136-145)
[2025-09-08 17:41] LABS: BUN/Creatinine Ratio 12.3 (10.0-20.0); Blood Urea Nitrogen 10 mg/dL (9-23)
--- NOTE | 2025-09-08 17:59 | DVHPN2 ---
Subjective Patient is more awake alert today passed swallow evaluation currently on pureed diet. Changes from previous H/P or p: No Changes Eyes: No Pain, No Vision change, No Conjunctivae inflammation, No Eyelid inflammation, No Other, No Redness ENT: No Ear pain, No Ear discharge, No Nose pain, No Nose discharge, No Nose congestion, No Mouth pain, No Mouth swelling, No Throat pain, No Throat swelling, No Other Cardiovascular: No Chest Pain, No Palpitations, No Orthopnea, No Paroxysmal Noc. Dyspnea, No Edema, No Lt Headedness, No Other Respiratory: No Cough, No Dry, No Shortness of breath, No SOB with excertion, No Wheezing, No Hemoptysis, No Pleuritic Pain, No Sputum, No Other Gastrointestinal: No Nausea, No Vomiting, No Abdominal Pain, No Diarrhea, No Constipation, No Melena, No Hematochezia, No Other Genitourinary: No Dysuria, No Frequency, No Incontinence, No Hematuria, No Retention, No Other Skin: No Rash, No Lesions, No Jaundice, No Bruising, No Other Objective Vitals Vital Signs Date Time Temp Pulse Resp B/P (MAP) Pulse Ox O2 Delivery O2 Flow Rate FiO2 09/08/25 17:00 97.7 92 20 132/80 (97) 93 97.7 09/08/25 07:55 Room Air* 0 21 Intake/Output Intake and Output 09/08/25 07:00 Intake Total 200 ml Output Total 450 ml Balance -250 ml Intake Oral 200 ml Output Urine Total 450 ml Exam HEENT pupils are reactive Neck is supple CV is S1-S2 regular rate and rhythm Respiratory diminished breath sounds bases GI positive bowel sound Extremity no edema 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 Medications Current Medications Medications Dose Ordered Sig/Kathie Route Start Time Stop Time Status Last Admin Dose Admin Aspirin 81 mg DAILY PO 09/06/25 10:00 09/06/25 10:47 81 MG Atorvastatin Calcium 40 mg HS PO 09/06/25 22:00 09/06/25 23:53 40 MG Carvedilol 12.5 mg Q12HR PO 09/06/25 10:00 09/06/25 23:55 12.5 MG Clonidine HCl 0.1 mg Q4HP PRN PO 09/05/25 22:45 Sodium Chloride 10 ml Q8HR IV 09/06/25 06:00 09/08/25 14:00 10 ML Acetaminophen/ Hydrocodone Bitart 1 tab Q4HP PRN PO 09/05/25 22:45 Ondansetron HCl 4 mg Q4HP PRN IV 09/05/25 22:45 Docusate Sodium 100 mg BIDPRN PRN PO 09/05/25 22:45 Acetaminophen 650 mg Q6HP PRN PO 09/05/25 22:45 Nitroglycerin 0.4 mg Q5MINP PRN SL 09/05/25 23:30 Morphine Sulfate 2 mg Q30M PRN IV 09/05/25 23:30 Dextrose/Sodium Chloride 1,000 ml @ 70 mls/hr [id number] IV 09/07/25 13:00 09/08/25 17:41 70 MLS/HR Amino Acids 0 ml @ 0 mls/hr PER PHARMACY IV 09/07/25 17:45 Amino Acids/ Electrolytes/ Dextrose 1,000 ml @ 41 mls/hr DAILY@2200 IV 09/07/25 22:00 09/07/25 21:36 41 MLS/HR Diagnostic Test (Pha) 1 strip Q6HR 09/07/25 18:00 09/08/25 11:30 1 STRIP Insulin Human Regular FOLLOW SLIDING SCALE Q6HR SC 09/07/25 18:00 09/08/25 05:21 2 UNITS Dextrose 50 ml UD IV 09/07/25 17:45 Levofloxacin/ Dextrose 100 ml @ 100 mls/hr DAILY IV 09/09/25 22:00 Laboratory Results Laboratory Tests 09/08/25 05:03 09/08/25 15:52 Chemistry Test 09/08/25 05:03 09/08/25 15:52 Albumin 4.0 g/dL (3.2-4.8) 3.8 g/dL (3.2-4.8) Calcium Level 8.8 mg/dL (8.7-10.4) 8.5 mg/dL (8.7-10.4) L Magnesium Level 2.0 mg/dL (1.6-2.6) Phosphorus Level 2.4 mg/dL (2.4-5.1) Total Protein 6.7 g/dL (5.7-8.2) 6.5 g/dL (5.7-8.2) Lipid panel Test 09/08/25 05:03 Triglycerides Level 131 mg/dL (< 150) LFT Test 09/08/25 05:03 09/08/25 15:52 Alanine Aminotransferase (ALT) 71 U/L (7-40) H 65 U/L (7-40) H Alkaline Phosphatase 144 U/L (46-116) H 133 U/L (46-116) H Aspartate Amino Transferase (AST) 39 U/L (13-40) 44 U/L (13-40) H Total Bilirubin 0.9 mg/dL (0.2-1.0) 0.8 mg/dL (0.2-1.0) Urinalysis Test 09/06/25 01:20 Urine Color Yellow (Yellow) Urine Clarity Clear (Clear) Urine pH 6.0 (5.0-9.0) Urine Specific [place] 1.028 (1.001-1.035) Urine Protein Trace (Negative) H Urine Ketones 1+ (Negative) H Urine Blood Negative /uL (Negative) Urine Nitrite Negative (Negative) Urine Bilirubin 1+ (Negative) Urine Urobilinogen 6 mg/dL (Negative) Urine Leukocyte Esterase Negative /uL (Negative) Urine RBC 2 /hpf (0 - 3) Urine Microscopic WBC 2 /HPF (0-3) Urine Squamous Epithelial Cells Few /hpf (<5) Urine Bacteria None seen /hpf (None Seen) Urine Hyaline Casts Few /lpf (0 - 2) Urine Mucus Few (None Seen) Urine Glucose Normal mg/dL (Normal) Microbiology Microbiology Date/Time Source Procedure Growth Status 09/07/25 16:33 Blood Blood Culture - Preliminary NO GROWTH AFTER 24 HOURS OF INCUBATION. Resulted Assessment/Plan Assessment/Plan 50-year-old male with a known history of COPD, congestive heart failure, history of CVA x3 currently bed-bound, diabetes mellitus type 2, hypertension, recurrent UTI who was recently hospitalized was sent home on IV antibiotics with a midline for two weeks of Levaquin presented to the hospital with altered mental status found to have 1. Acute metabolic/toxic encephalopathy, significantly improved 2. Recurrent urinary tract infection 3. Diabetes mellitus type 2 4. Hypertension 5. History of CVA currently bed-bound status 6. Chronic congestive heart failure unspecified 7. Morbid obesity classIII -removed with a transdermal pain patch, patient's father swallow evaluation, start. Diet -continue antibiotics, aspiration precaution, fall precaution and pressure ulcer precautions. Follow up final blood culture Plan discussed with: Patient My Orders Orders - REDD KISER MD Procedure Category Date Status Time Potassium Phosphate PHA 09/08/25 In Process 13:00 Comprehensive LAB 09/09/25 Verified Metabolic Panel 04:00 Magnesium LAB 09/09/25 Verified 04:00 Phosphorus LAB 09/09/25 Verified 04:00 Clinimix Per Pharmacy [facility] 09/08/25 In Process 22:00 Levofloxacin 500mg PHA 09/09/25 In Process (Levaquin 500mg/ 100m 22:00 Consistent DIET 09/08/25 Transmitted Carb(Ccho)Diabetes Dinner Date of Service: Sep 08, 2025 Billing Provider: REDD KISER MD Common Visit Codes: [id number] INP/OBS CARE(HIGH) REDD KISER MD Sep 08, 2025 17:59
[2025-09-09] VITALS (9 sets, daily range): BP systolic 114–135; BP diastolic 67–91; PULSE 78–90; RESP 13–17; TEMP 96.6–98.4; O2SAT 0–99
[2025-09-09 08:01] LABS: Albumin 4.0 g/dL (3.2-4.8); Anion Gap 12 (5-15); BUN/Creatinine Ratio 12.0 (10.0-20.0); Blood Urea Nitrogen 11 mg/dL (9-23); Calcium 8.9 mg/dL (8.7-10.4); Carbon Dioxide 23 mmol/L (20-31); Magnesium 1.9 mg/dL (1.6-2.6); Sodium 144 mmol/L (136-145); Total Protein 6.6 g/dL (5.7-8.2)
[2025-09-09 08:02] LABS: Bilirubin, Total 1.0 mg/dL (0.2-1.0)
[2025-09-09 08:05] LABS: Alanine Aminotransferase 65 U/L (7-40); Alkaline Phosphatase 142 U/L (46-116); Chloride 109 mmol/L (98-107); Glucose 138 mg/dL (74-106); Potassium 3.2 mmol/L (3.5-5.1)
--- NOTE | 2025-09-09 09:57 | DVH ---
RIGHT Upper Extremity Venous Duplex Clinical History: swelling to right upper arm at midline site Comparison: None Technique: Duplex Doppler evaluation of the venous system of the RIGHT lower neck and upper extremity including color Doppler and spectral/pulsed waveform analysis was performed. Findings: The internal jugular vein demonstrates appropriate compressibility and waveform variability. The subclavian vein is patent on color Doppler evaluation without intraluminal thrombus and demonstra charly waveform variability. The visualized portion of the brachiocephalic vein is patent on color Doppler evaluation without intr aluminal thrombus and demonstrates waveform variability. The axillary vein demonstrates appropriate compressibility and waveform variability. The brachial veins demonstrate appropriate compressibility and patency on Doppler evaluation. The basilic vein demonstrates appropriate compressibility and patency on Doppler evaluation. The cephalic vein demonstrates appropriate compressibility and patency on Doppler evaluation. Impression: No venous thrombus identified in the RIGHT upper extremity vessels evaluated above. Moderate to severe soft-tissue edema in the right upper extremity in her arm in region of removed mid line.
[2025-09-09] MEDS ORDERED: POTASSIUM PHOSPHATE 44 MEQ in D5W 5% 250 ML IV ONE (11:30)
--- NOTE | 2025-09-09 16:42 | DVHINCON2 ---
Date of service: Sep 09, [address] Javier Reason for Consultation Antibiotic recommendations History of Present Illness A 50-year-old male who is morbidly obese was brought to the hospital due to confusion. Patient was recently admitted to the hospital and was discharged with midline and IV antibiotics for UTI with Levaquin for two weeks Patient was admitted here on August 30 with history of CVA, COPD, congestive heart failure, diabetes and lupus apparently he is bedridden for last two years due to stroke history During that hospitalization, urine culture only grew less than 10 K colonies and urine culture were negative. Blood culture negative. He was admitted on August 30 also with some altered mental status. Patient was discharged with IV Levaquin for two weeks Currently, patient is sleeping, opens his eyes but appears to be confused Past medical history As stated in HPI, bipolar, hypertension, history of CVA, morbid obesity, COPD, congestive heart failure Past surgical history umbilical hernia repair Allergies unable to review With the patient Family History: FH: bipolar disorder G8 FATHER Hypertension in brother G8 FATHER Allergies: Coded Allergies: Pork (Porcine) Protein (Verified Allergy, Severe, 09/09/25) Avibactam (Verified Allergy, Unknown, 07/11/24) Ceftazidime (Verified Allergy, Unknown, 07/11/24) Penicillins (Verified Allergy, Unknown, 07/11/24) Home Meds Reported Medications Ondansetron HCl (Ondansetron) 4 Mg Tab, 4 MG PO, TAB 08/31/25 Carvedilol (Carvedilol) 6.25 Mg Tab, 6.25 MG PO for 30 Days, MG 08/31/25 Potassium Chloride (Klor-Con M20) 20 Meq Tab, 20 MEQ PO, TAB 08/31/25 Amiloride HCl (Amiloride Hydrochloride) 5 Mg Tab, 5 MG PO, TAB 08/31/25 Atorvastatin Calcium (ATORVASTATIN CALCIUM) 40 Mg Tab, 1 TAB PO QPM, #90 TAB 3 Refills 08/31/25 Tizanidine Hydrochloride (Zanaflex) 4 Mg Tab, 4 MG PO, TAB 08/31/25 Buprenorphine (BUTRANS) 10 Mcg/Hr Dis, 1 PATCH TOP QWEEKLY, #4 PATCH 1 Refill 08/31/25 Hydrocodone-Acetaminophen (Hydrocodone Bitartrate/AC 7.5-325 mg) 1 Tab Tab, 1 TAB PO, TAB 08/31/25 Aspirin (Aspir-Low) 81 Mg Tab, PO DAILY for 30 Days, MG 07/12/24 Fluticasone Propionate (Inhala (Fluticasone Propionate Di) 50 Mcg/Act Aer, IN, AER 07/12/24 Cetirizine Hcl (Zyrtec Allergy) 10 Mg Cap, PO, CAP 07/12/24 Ipratropium [place] Hfa (Atrovent Hfa) 17 Mcg Aer, IN, AER 07/12/24 Montelukast Sodium ([place]) 4 Mg Chw, 25 MG PO DAILY, TAB.CHEW 07/12/24 Aripiprazole (Abilify) 20 Mg Tab, 30 MG PO DAILY, TAB 07/12/24 Current Medications Current Medications Medications (Trade) Dose Ordered Sig/Kathie Route PRN Reason Start Time Stop Time Status Last Admin Levofloxacin/ Dextrose 100 ml @ 100 mls/hr DAILY IV 09/09/25 22:00 09/09/25 15:08 DC Potassium Chloride 100 ml @ 50 mls/hr Q2H IV 09/09/25 14:45 09/09/25 18:44 Review of Systems Unable to obtain Vital Signs Vital Signs Date Time Temp Pulse Resp B/P (MAP) Pulse Ox O2 Delivery O2 Flow Rate FiO2 09/09/25 13:00 96.6 79 13 130/83 (99) 94 96.6 09/09/25 08:14 Room Air* 0 21 Physical Exam General alert and looks disoriented morbidly obese HEENT: Atraumatic Neck: No swelling Lungs: Equal air entry and clear to auscultation Cardiovascular: S2 heard no murmur Abdomen: Soft nontender, no organomegaly, nondistended Neuro: drowsy Labs/Diagnostic Data Labs Test 09/09/25 11:18 09/09/25 07:14 09/08/25 05:03 09/06/25 01:20 Range/Units POC Glucose 166 H 70-106 mg/dl Sodium Level 144 136-145 mmol/L Potassium Level 3.2 L 3.5-5.1 mmol/L Chloride Level 109 H 98-107 mmol/L Carbon Dioxide Level 23 20-31 mmol/L Anion Gap 12 5-15 Blood Urea Nitrogen 11 9-23 mg/dL Creatinine 0.92 0.700-1.30 mg/dL Glomerular Filtration Rate Calc 100 >90 mL/min BUN/Creatinine Ratio 12.0 10.0-20.0 Serum Glucose 138 H 74-106 mg/dL Calcium Level 8.9 8.7-10.4 mg/dL Phosphorus Level 2.4 2.4-5.1 mg/dL Magnesium Level 1.9 1.6-2.6 mg/dL Total Bilirubin 1.0 0.2-1.0 mg/dL Aspartate Amino Transferase (AST) 41 H 13-40 U/L Alanine Aminotransferase (ALT) 65 H 7-40 U/L Alkaline Phosphatase 142 H 46-116 U/L Total Protein 6.6 5.7-8.2 g/dL Albumin 4.0 3.2-4.8 g/dL White Blood Count 8.4 4.4-10.8 10^3/uL Red Blood Count 5.37 4.5-5.90 10^6/uL Hemoglobin 13.9 13.5-17.5 g/dL Hematocrit 41.4 41.0-53.0 % Mean Corpuscular Volume 77.1 L 80.0-100.0 fL Mean Corpuscular Hemoglobin 25.9 L 28.0-32.0 pg Mean Corpuscular Hemoglobin Concent 33.6 32.0-36.0 g/dL Red Cell Distribution Width 16.6 H 11.8-14.3 % Platelet Count 239 140-450 10^3/uL Mean Platelet Volume 9.3 6.9-10.8 fL Neutrophils (%) (Auto) 55.7 37.0-80.0 % Lymphocytes (%) (Auto) 31.6 10.0-50.0 % Monocytes (%) (Auto) 9.1 0.0-12.0 % Eosinophils (%) (Auto) 2.8 0.0-7.0 % Basophils (%) (Auto) 0.8 0.0-2.0 % Neutrophils # (Auto) 4.7 1.6-8.6 10 ^3/uL Lymphocytes # (Auto) 2.7 0.4-5.4 10 ^3/uL Monocytes # (Auto) 0.8 0-1.3 10 ^3/uL Eosinophils # (Auto) 0.2 0-0.8 10 ^3/uL Basophils # (Auto) 0.1 0-0.2 10 ^3/uL Nucleated Red Blood Cells 0.4 % Prealbumin 10.0 10.0-40.0 md/dL Triglycerides Level 131 < 150 mg/dL Urine Color Yellow Yellow Urine Clarity Clear Clear Urine pH 6.0 5.0-9.0 Urine Specific [place] 1.028 1.001-1.035 Urine Protein Trace H Negative Urine Ketones 1+ H Negative Urine Blood Negative Negative /uL Urine Nitrite Negative Negative Urine Bilirubin 1+ Negative Urine Urobilinogen 6 Negative mg/dL Urine Leukocyte Esterase Negative Negative /uL Urine RBC 2 0 - 3 /hpf Urine Microscopic WBC 2 0-3 /HPF Urine Squamous Epithelial Cells Few <5 /hpf Urine Bacteria None seen None Seen /hpf Urine Hyaline Casts Few 0 - 2 /lpf Urine Mucus Few None Seen Urine Glucose Normal Normal mg/dL Test 09/05/25 18:11 09/05/25 14:10 Range/Units Troponin I High Sensitivity 16 </=54 ng/L B-Type Natriuretic Peptide 9.69 0-100 pg/mL Microbiology Date/Time Source Procedure Growth Status 09/07/25 16:33 Blood Blood Culture - Preliminary NO GROWTH AFTER 24 HOURS OF INCUBATION. Resulted Assessment A 50-year-old male Altered mental status likely metabolic Morbid obesity History of stroke UTI resolved Recommendations Patient is mental status is intermittent, today he seems drowsy. According to Dr. Javier, patient was on pain patch when he came in which could be causing his confusion, removed 48 hours ago.. Reviewed cultures and labs from previous hospital admission, UA on on looks clean. Recommend DC Levaquin and remove midline if not needed Patient is on Clinimix due to confusion Patient is afebrile, no WBC count Neurology consult to evaluate confusion discussed with RN, Dr Javier Prognosis guarded Thank you for consultation Plan discussed with: Other AISHA CRENSHAW MD Sep 09, 2025 16:42
[2025-09-09] MEDS: POTASSIUM CHL 20MEQ/100ML 100 ML IV SCH (16:48)
--- NOTE | 2025-09-09 16:53 | DVHPN2 ---
Subjective Patient is confused, antibiotic has been discontinued as per ID recommendations. Changes from previous H/P or p: No Changes Eyes: No Pain, No Vision change, No Conjunctivae inflammation, No Eyelid inflammation, No Other, No Redness ENT: No Ear pain, No Ear discharge, No Nose pain, No Nose discharge, No Nose congestion, No Mouth pain, No Mouth swelling, No Throat pain, No Throat swelling, No Other Cardiovascular: No Chest Pain, No Palpitations, No Orthopnea, No Paroxysmal Noc. Dyspnea, No Edema, No Lt Headedness, No Other Respiratory: No Cough, No Dry, No Shortness of breath, No SOB with excertion, No Wheezing, No Hemoptysis, No Pleuritic Pain, No Sputum, No Other Gastrointestinal: No Nausea, No Vomiting, No Abdominal Pain, No Diarrhea, No Constipation, No Melena, No Hematochezia, No Other Genitourinary: No Dysuria, No Frequency, No Incontinence, No Hematuria, No Retention, No Other Skin: No Rash, No Lesions, No Jaundice, No Bruising, No Other Objective Vitals Vital Signs Date Time Temp Pulse Resp B/P (MAP) Pulse Ox O2 Delivery O2 Flow Rate FiO2 09/09/25 16:52 97.7 78 13 123/67 (85) 98 97.7 09/09/25 08:14 Room Air* 0 21 Intake/Output Intake and Output 09/09/25 07:00 Intake Total 912 ml Output Total 475 ml Balance 437 ml Intake Oral 250 ml IV Total 662 ml Output Urine Total 475 ml Exam HEENT pupils are reactive Neck is supple CV is S1-S2 regular rate and rhythm Respiratory diminished breath sounds bases GI positive bowel sound Extremity no edema [employer]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 Medications Current Medications Medications Dose Ordered Sig/Kathie Route Start Time Stop Time Status Last Admin Dose Admin Aspirin 81 mg DAILY PO 09/06/25 10:09/09/25 09:08 81 MG Atorvastatin Calcium 40 mg HS PO 09/06/25 22:00 09/08/25 22:11 40 MG Carvedilol 12.5 mg Q12HR PO 09/06/25 10:00 09/09/25 09:09 12.5 MG Clonidine HCl 0.1 mg Q4HP PRN PO 09/05/25 22:45 Sodium Chloride 10 ml Q8HR IV 09/06/25 06:00 09/09/25 14:00 10 ML Acetaminophen/ Hydrocodone Bitart 1 tab Q4HP PRN PO 09/05/25 22:45 Ondansetron HCl 4 mg Q4HP PRN IV 09/05/25 22:45 Docusate Sodium 100 mg BIDPRN PRN PO 09/05/25 22:45 Acetaminophen 650 mg Q6HP PRN PO 09/05/25 22:45 Nitroglycerin 0.4 mg Q5MINP PRN SL 09/05/25 23:30 Morphine Sulfate 2 mg Q30M PRN IV 09/05/25 23:30 Dextrose/Sodium Chloride 1,000 ml @ 70 mls/hr [id number] IV 09/07/25 13:00 09/09/25 07:54 70 MLS/HR Amino Acids 0 ml @ 0 mls/hr PER PHARMACY IV 09/07/25 17:45 Amino Acids/ Electrolytes/ Dextrose 1,000 ml @ 41 mls/hr DAILY@2200 IV 09/07/25 22:00 09/08/25 22:15 41 MLS/HR Diagnostic Test (Pha) 1 strip Q6HR 09/07/25 18:00 09/09/25 16:48 1 STRIP Insulin Human Regular FOLLOW SLIDING SCALE Q6HR SC 09/07/25 18:00 09/09/25 16:47 2 UNITS Dextrose 50 ml UD IV 09/07/25 17:45 Potassium Chloride 100 ml @ 50 mls/hr Q2H IV 09/09/25 14:45 09/09/25 18:44 09/09/25 16:48 50 MLS/HR Laboratory Results Laboratory Tests 09/08/25 05:03 09/09/25 07:14 Chemistry Test 09/09/25 07:14 Albumin 4.0 g/dL (3.2-4.8) Calcium Level 8.9 mg/dL (8.7-10.4) Magnesium Level 1.9 mg/dL (1.6-2.6) Phosphorus Level 2.4 mg/dL (2.4-5.1) Total Protein 6.6 g/dL (5.7-8.2) LFT Test 09/09/25 07:14 Alanine Aminotransferase (ALT) 65 U/L (7-40) H Alkaline Phosphatase 142 U/L (46-116) H Aspartate Amino Transferase (AST) 41 U/L (13-40) H Total Bilirubin 1.0 mg/dL (0.2-1.0) Urinalysis Test 09/06/25 01:20 Urine Color Yellow (Yellow) Urine Clarity Clear (Clear) Urine pH 6.0 (5.0-9.0) Urine Specific [place] 1.028 (1.001-1.035) Urine Protein Trace (Negative) H Urine Ketones 1+ (Negative) H Urine Blood Negative /uL (Negative) Urine Nitrite Negative (Negative) Urine Bilirubin 1+ (Negative) Urine Urobilinogen 6 mg/dL (Negative) Urine Leukocyte Esterase Negative /uL (Negative) Urine RBC 2 /hpf (0 - 3) Urine Microscopic WBC 2 /HPF (0-3) Urine Squamous Epithelial Cells Few /hpf (<5) Urine Bacteria None seen /hpf (None Seen) Urine Hyaline Casts Few /lpf (0 - 2) Urine Mucus Few (None Seen) Urine Glucose Normal mg/dL (Normal) Microbiology Microbiology Date/Time Source Procedure Growth Status 09/07/25 16:33 Blood Blood Culture - Preliminary NO GROWTH AFTER 48 HOURS OF INCUBATION. Resulted Assessment/Plan Assessment/Plan 50-year-old male with a known history of COPD, congestive heart failure, history of CVA x3 currently bed-bound, diabetes mellitus type 2, hypertension, recurrent UTI who was recently hospitalized was sent home on IV antibiotics with a midline for two weeks of Levaquin presented to the hospital with altered mental status found to have 1. Acute metabolic/toxic encephalopathy, significantly improved 2. Recurrent urinary tract infection 3. Diabetes mellitus type 2 4. Hypertension 5. History of CVA currently bed-bound status 6. Chronic congestive heart failure unspecified 7. Morbid obesity classIII -keep aspiration and fall precaution, diet as -continue antibiotics, aspiration precaution, fall precaution and pressure ulcer precautions. Blood cultures are negative to date. is not at bedside Plan discussed with: Other My Orders Orders - REDD KISER MD Procedure Category Date Status Time Rt Upper Dvt US 09/09/25 Resulted 07:30 Change Midline GARIMA 09/09/25 In Process Dressing Q7 Day 08:21 Insert Midline ORDERS 09/09/25 Transmitted 08:21 Renal Function Test LAB 09/10/25 Verified 05:00 Magnesium LAB 09/10/25 Verified 05:00 Clinimix Per Pharmacy GARIMA 09/09/25 In Process 22:00 Potassium Chl PHA 09/09/25 In Process 20meq/100ml 14:45 * Infectious [place]- . CONS 09/09/25 Transmitted [place] 14:41 Consistent DIET 09/09/25 Transmitted Carb([facility])Diabetes Dinner Date of Service: Sep 09, 2025 Billing Provider: REDD KISER MD Common Visit Codes: [id number] INP/OBS CARE(HIGH) REDD KISER MD Sep 09, 2025 16:53
--- NOTE | 2025-09-09 20:20 | DVHINCON2 ---
Date of service: Sep 09, [address] Muro Reason for Consultation Altered mental status History of Present Illness Mr. Simmons is a 50 years old gentleman with a history of hypertension, diabetes, hypothyroidism, congestive heart failure, stroke, COPD, UTI, morbid obesity, lupus, he was discharged on 09/04/2025 from [facility] for UTI, but returned on 09/05/2025 for altered mental status. At that time, awake, he does not vocalize, (he talked according to the nurse), he may only oriented to himself, the history is obtained from his , and chart review After 2-3 weeks of nausea, vomiting, diarrhea, abdominal pain, the patient was admitted to the [facility] on 08/30/2025 and he was found to have UTI and was treated accordingly. The patient was mentally fine at that time, but was mentally altered on 09/04/2025 before he is discharged, also reported a fall with head injury on 09/04/2025, with an unremarkable CT head But his mental status did not recover, instead he mumbles unintelligible words, he was picking/grabbing the air and family bring him back for medical attention. He has never had similar problems previously In the age of 35, he developed right leg weakness, the patient was seen in the [facility] and was said to have a stroke, he had a good recovery Two years ago, he had to stroke the same time, which did not cause weakness, but caused gait disturbance, and progressive short-term memory difficulty (will be further described), since then the patient has not been able to walk but was able to transfer him from bed to a chair. He is on aspirin 80 mg daily, atorvastatin 40 mg daily at home Coincidentally after the strokes two years ago, has a progressive short-term memory difficulty with a long-term memory on affected. He has chronic low back pain since 2014 or earlier, she sees a pain specialist, she is on lidocaine patch, tizanidine, [place] 7.5 mg/325 t.i.d. p.r.n. [phone] Urinalysis, 08/30/2025: WBC: 11, urine leukocyte esterase: Trace Urinalysis, 09/06/2025: WBC: 2, urine leukocyte esterase: Negative UDS, 09/01/2025: Opiates WBC/HB/PLT/MCV, 09/08/2025: 8.4/13.9/239/77.1 TBI/AST/ALT/AP, 09/09/2025: 1/41/65/142 Venous Doppler, 09/26/2025: No venous thrombus identified in the RIGHT upper extremity vessels evaluated above. Moderate to severe soft-tissue edema in the right upper extremity in her arm in region of removed midline Chest x-ray, 09/05/2025: Cardiomegaly CT head, 09/05/2025: No acute intracranial abnormality Past Medical History Hypertension, diabetes, hypothyroidism, congestive heart failure, stroke, COPD, UTI, morbid obesity, lupus, chronic low back pain Past Surgical History Hernia repair Family History: FH: bipolar disorder G8 FATHER Hypertension in brother G8 FATHER Family History Hypertension, heart disease, stroke, bipolar disorder, grandpa had Alzheimer disease Social History No history of tobacco smoke, alcohol or drug abuse Allergies: Coded Allergies: Pork (Porcine) Protein (Verified Allergy, Severe, 09/09/25) Avibactam (Verified Allergy, Unknown, 07/11/24) Ceftazidime (Verified Allergy, Unknown, 07/11/24) Penicillins (Verified Allergy, Unknown, 07/11/24) Home Meds Reported Medications Ondansetron HCl (Ondansetron) 4 Mg Tab, 4 MG PO, TAB 08/31/25 Carvedilol (Carvedilol) 6.25 Mg Tab, 6.25 MG PO for 30 Days, MG 08/31/25 Potassium Chloride (Klor-Con M20) 20 Meq Tab, 20 MEQ PO, TAB 08/31/25 Amiloride HCl (Amiloride Hydrochloride) 5 Mg Tab, 5 MG PO, TAB 08/31/25 Atorvastatin Calcium (ATORVASTATIN CALCIUM) 40 Mg Tab, 1 TAB PO QPM, #90 TAB 3 Refills 08/31/25 Tizanidine Hydrochloride (Zanaflex) 4 Mg Tab, 4 MG PO, TAB 08/31/25 Buprenorphine (BUTRANS) 10 Mcg/Hr Dis, 1 PATCH TOP QWEEKLY, #4 PATCH 1 Refill 08/31/25 Hydrocodone-Acetaminophen (Hydrocodone Bitartrate/AC 7.5-325 mg) 1 Tab Tab, 1 TAB PO, TAB 08/31/25 Aspirin (Aspir-Low) 81 Mg Tab, PO DAILY for 30 Days, MG 07/12/24 Fluticasone Propionate (Inhala (Fluticasone Propionate Di) 50 Mcg/Act Aer, IN, AER 07/12/24 Cetirizine Hcl (Zyrtec Allergy) 10 Mg Cap, PO, CAP 07/12/24 Ipratropium [place] Hfa (Atrovent Hfa) 17 Mcg Aer, IN, AER 07/12/24 Montelukast Sodium ([place]) 4 Mg Chw, 25 MG PO DAILY, TAB.CHEW 07/12/24 Aripiprazole (Abilify) 20 Mg Tab, 30 MG PO DAILY, TAB 07/12/24 Current Medications Current Medications Medications (Trade) Dose Ordered Sig/Kathie Route PRN Reason Start Time Stop Time Status Last Admin Levofloxacin/ Dextrose 100 ml @ 100 mls/hr DAILY IV 09/09/25 22:00 09/09/25 15:08 DC Potassium Chloride 100 ml @ 50 mls/hr Q2H IV 09/09/25 14:45 09/09/25 18:44 DC 09/09/25 16:48 Review of Systems As above, the other systems are negative Vital Signs Vital Signs Date Time Temp Pulse Resp B/P (MAP) Pulse Ox O2 Delivery O2 Flow Rate FiO2 09/09/25 16:52 97.7 78 13 123/67 (85) 98 97.7 09/09/25 08:14 Room Air* 0 21 Physical Exam GENERAL EXAM: General: the patient is well developed and nourished. No acute distress. HEENT: Normocephalic, neck is supple, no carotid bruits. No mass. RESPIRATORY: Normal respiratory effort with symmetrical lung expansion. Lungs clear to auscultation. CARDIOVASCULAR: Regular rate and rhythm with no murmurs. S1, S2. ABDOMEN: Soft, nontender, normal bowel sound NEUROLOGICAL: MENTAL STATUS: Subjective. Not cooperative with physical examination SPEECH, LANGUAGE, HIGHER CORTICAL FUNCTION: He does not vocalize CRANIAL NERVES: #2: Intact visual arango to confrontation. #3,4,6:EOMs full and conjugate #5: Facial sensation fine in all three divisions bilaterally. Mandibular st rength intact. #7: Facial muscles symmetrical and strength intact. #8: Hearing grossly normal to voice. #9,10: Deferred #11: Trapezius and sternomastoid strength intact bilaterally. #12: Deferred SENSATION: Sensation to touch and pinprick is fine MOTOR: Normal tone in the upper and lower extremity. Normal muscle bulk. No fasciculations. No abnormal movements or posturing. He moves the arms a little bit, he moves the legs minimally REFLEXES: Deep tendon reflexes are symmetrical. No pathological reflexes. CEREBELLAR/COORDINATION: Deferred GAIT/STATION: deferred. Labs/Diagnostic Data Labs Test 09/09/25 16:12 09/09/25 07:14 09/08/25 05:03 09/06/25 01:20 Range/Units POC Glucose 159 H 70-106 mg/dl Sodium Level 144 136-145 mmol/L Potassium Level 3.2 L 3.5-5.1 mmol/L Chloride Level 109 H 98-107 mmol/L Carbon Dioxide Level 23 20-31 mmol/L Anion Gap 12 5-15 Blood Urea Nitrogen 11 9-23 mg/dL Creatinine 0.92 0.700-1.30 mg/dL Glomerular Filtration Rate Calc 100 >90 mL/min BUN/Creatinine Ratio 12.0 10.0-20.0 Serum Glucose 138 H 74-106 mg/dL Calcium Level 8.9 8.7-10.4 mg/dL Phosphorus Level 2.4 2.4-5.1 mg/dL Magnesium Level 1.9 1.6-2.6 mg/dL Total Bilirubin 1.0 0.2-1.0 mg/dL Aspartate Amino Transferase (AST) 41 H 13-40 U/L Alanine Aminotransferase (ALT) 65 H 7-40 U/L Alkaline Phosphatase 142 H 46-116 U/L Total Protein 6.6 5.7-8.2 g/dL Albumin 4.0 3.2-4.8 g/dL White Blood Count 8.4 4.4-10.8 10^3/uL Red Blood Count 5.37 4.5-5.90 10^6/uL Hemoglobin 13.9 13.5-17.5 g/dL Hematocrit 41.4 41.0-53.0 % Mean Corpuscular Volume 77.1 L 80.0-100.0 fL Mean Corpuscular Hemoglobin 25.9 L 28.0-32.0 pg Mean Corpuscular Hemoglobin Concent 33.6 32.0-36.0 g/dL Red Cell Distribution Width 16.6 H 11.8-14.3 % Platelet Count 239 140-450 10^3/uL Mean Platelet Volume 9.3 6.9-10.8 fL Neutrophils (%) (Auto) 55.7 37.0-80.0 % Lymphocytes (%) (Auto) 31.6 10.0-50.0 % Monocytes (%) (Auto) 9.1 0.0-12.0 % Eosinophils (%) (Auto) 2.8 0.0-7.0 % Basophils (%) (Auto) 0.8 0.0-2.0 % Neutrophils # (Auto) 4.7 1.6-8.6 10 ^3/uL Lymphocytes # (Auto) 2.7 0.4-5.4 10 ^3/uL Monocytes # (Auto) 0.8 0-1.3 10 ^3/uL Eosinophils # (Auto) 0.2 0-0.8 10 ^3/uL Basophils # (Auto) 0.1 0-0.2 10 ^3/uL Nucleated Red Blood Cells 0.4 % Prealbumin 10.0 10.0-40.0 md/dL Triglycerides Level 131 < 150 mg/dL Urine Color Yellow Yellow Urine Clarity Clear Clear Urine pH 6.0 5.0-9.0 Urine Specific [place] 1.028 1.001-1.035 Urine Protein Trace H Negative Urine Ketones 1+ H Negative Urine Blood Negative Negative /uL Urine Nitrite Negative Negative Urine Bilirubin 1+ Negative Urine Urobilinogen 6 Negative mg/dL Urine Leukocyte Esterase Negative Negative /uL Urine RBC 2 0 - 3 /hpf Urine Microscopic WBC 2 0-3 /HPF Urine Squamous Epithelial Cells Few <5 /hpf Urine Bacteria None seen None Seen /hpf Urine Hyaline Casts Few 0 - 2 /lpf Urine Mucus Few None Seen Urine Glucose Normal Normal mg/dL Test 09/05/25 18:11 09/05/25 14:10 Range/Units Troponin I High Sensitivity 16 </=54 ng/L B-Type Natriuretic Peptide 9.69 0-100 pg/mL Microbiology Date/Time Source Procedure Growth Status 09/07/25 16:33 Blood Blood Culture - Preliminary NO GROWTH AFTER 48 HOURS OF INCUBATION. Resulted Assessment Altered mental status/metabolic encephalopathy, secondary to UTI, pain management Reported multiple strokes Gait disturbance, secondary to strokes, obesity, chronic low back pain and other etiology Cognitive dysfunction Vascular dementia Alzheimer disease Chronic pain syndrome Morbid obesity Plan/Recommendation Monitoring Supportive treatment Telemetry Vitamin B12, folic acid, TSH EEG MRI head IV antibiotics Aspirin 81 mg daily Lipitor 40 mg daily Pain management Further address his morbid obesity or other medical problem as outpatient Progress: Poor This medical document was created using an electronic medical record system with [employer] dictation system. Although this document has been carefully reviewed, there may still be some phonetic and typographical errors. These areas are purely typographical due to imperfections of the software programs, and do not reflect any compromise in the patient's medical care. Plan discussed with: Spouse, Other DREW PORTILLO MD Sep 09, 2025 20:20
[2025-09-09] MEDS ORDERED: LORazepam 2MG/ML-1ML VIAL IV PRN (21:30)
[2025-09-09 22:26] LABS: Triglycerides 106 mg/dL (< 150)
[2025-09-09 22:28] LABS: Cholesterol 104 mg/dL (< 200)
[2025-09-09 22:31] LABS: Free T4 (Free Thyroxine) 1.12 ng/dL (0.89-1.76)
[2025-09-09 22:42] LABS: HDL Cholesterol 30 mg/dL (40-59)
[2025-09-10] VITALS (9 sets, daily range): BP systolic 108–130; BP diastolic 68–91; PULSE 76–98; RESP 16–20; TEMP 97.4–99.4; O2SAT 90–96
[2025-09-10 06:57] LABS: Chloride 107.0 mmol/L (98-107); Sodium 142.0 mmol/L (136-145)
[2025-09-10 06:58] LABS: Anion Gap 13.0 (5-15); Carbon Dioxide 22.0 mmol/L (20-31)
[2025-09-10 06:59] LABS: Calcium 8.7 mg/dL (8.7-10.4)
[2025-09-10 07:03] LABS: Albumin 3.9 g/dL (3.2-4.8); BUN/Creatinine Ratio 16.9 (10.0-20.0); Blood Urea Nitrogen 15.0 mg/dL (9-23)
[2025-09-10 07:04] LABS: Magnesium 1.8 mg/dL (1.6-2.6)
[2025-09-10 07:09] LABS: Glucose 135.0 mg/dL (74-106); Potassium 3.5 mmol/L (3.5-5.1)
--- NOTE | 2025-09-10 08:59 | DVHPN2 ---
Progress Note - Dictate Date Seen: Sep 10, 2025 Medical Necessity Reason Pt with a Central, PICC or Fol: Yes The following are medically ne: Saleh Catheter Subjective Mr. Simomns is a 50 years old gentleman with a history of hypertension, diabetes, hypothyroidism, congestive heart failure, stroke, COPD, UTI, morbid obesity, lupus, he was discharged on 09/04/2025 from [facility] for UTI, but returned on 09/05/2025 for altered mental status. I have seen and examined the patient, I have discussed with his nurse. He is sleepy, but arousable, he does not talk to me or follow my verbal commands RN: Hard to wake up, mumble a few words on waking up He is not cooperative with physical examination Urinalysis, 08/30/2025: WBC: 11, urine leukocyte esterase: Trace Urinalysis, 09/06/2025: WBC: 2, urine leukocyte esterase: Negative UDS, 09/01/2025: Opiates WBC/HB/PLT/MCV, 09/08/2025: 8.4/13.9/239/77.1 TBI/AST/ALT/AP, 09/09/2025: 1/41/65/142 Vitamin B12, 09/09/25: 317 Folic acid, 09/09/25: 6.2 TSH, 09/09/2025, 0.87 FT4, 09/09/25: 1.12 Venous Doppler, 09/26/2025: No venous thrombus identified in the RIGHT upper extremity vessels evaluated above. Moderate to severe soft-tissue edema in the right upper extremity in her arm in region of removed midline Chest x-ray, 09/05/2025: Cardiomegaly CT head, 09/05/2025: No acute intracranial abnormality vital signs Vital Sign Date Time Temp Pulse Resp B/P (MAP) Pulse Ox O2 Delivery O2 Flow Rate FiO2 09/10/25 08:36 97.4 98 20 130/68 (88) 95 97.4 09/09/25 20:00 Room Air* 0 21 Total Intake and Output 09/09/25 09/09/25 09/10/25 15:00 23:00 07:00 Intake Total 1842 ml 500 ml Output Total 500 ml Balance 1342 ml 500 ml medications Current Medications Medications Dose Ordered Sig/Kathie Route Start Time Stop Time Status Last Admin Dose Admin Aspirin 81 mg DAILY PO 09/06/25 10:00 09/09/25 09:08 81 MG Atorvastatin Calcium 40 mg HS PO 09/06/25 22:00 09/09/25 22:14 40 MG Carvedilol 12.5 mg Q12HR PO 09/06/25 10:00 09/09/25 22:14 12.5 MG Clonidine HCl 0.1 mg Q4HP PRN PO 09/05/25 22:45 Sodium Chloride 10 ml Q8HR IV 09/06/25 06:00 09/10/25 05:26 10 ML Acetaminophen/ Hydrocodone Bitart 1 tab Q4HP PRN PO 09/05/25 22:45 Ondansetron HCl 4 mg Q4HP PRN IV 09/05/25 22:45 Docusate Sodium 100 mg BIDPRN PRN PO 09/05/25 22:45 Acetaminophen 650 mg Q6HP PRN PO 09/05/25 22:45 Nitroglycerin 0.4 mg Q5MINP PRN SL 09/05/25 23:30 Morphine Sulfate 2 mg Q30M PRN IV 09/05/25 23:30 Dextrose/Sodium Chloride 1,000 ml @ 70 mls/hr [id number] IV 09/07/25 13:00 09/09/25 07:54 70 MLS/HR Amino Acids 0 ml @ 0 mls/hr PER PHARMACY IV 09/07/25 17:45 Amino Acids/ Electrolytes/ Dextrose 1,000 ml @ 41 mls/hr DAILY@2200 IV 09/07/25 22:00 09/09/25 22:08 41 MLS/HR Diagnostic Test (Pha) 1 strip Q6HR 09/07/25 18:00 09/10/25 05:26 1 STRIP Insulin Human Regular FOLLOW SLIDING SCALE Q6HR SC 09/07/25 18:00 09/10/25 05:26 2 UNITS Dextrose 50 ml UD IV 09/07/25 17:45 Lorazepam 1 mg ONCE PRN IV 09/09/25 21:30 objective General: the patient is well developed and nourished. No acute distress. MENTAL STATUS: Subjective. SPEECH, LANGUAGE, HIGHER CORTICAL FUNCTION: He does not vocalize CRANIAL NERVES: EOMs full and conjugate. Facial sensation fine in all three divisions bilaterally. Mandibular strength intact. Facial muscles symmetrical and strength intact. SENSATION: Sensation to touch and pinprick is fine MOTOR: Normal tone in the upper and lower extremity. Normal muscle bulk. No fasciculations. No abnormal movements or posturing. He moves the arms a little bit, he moves the legs REFLEXES: Deep tendon reflexes are symmetrical. No pathological reflexes. CEREBELLAR/COORDINATION: Deferred GAIT/STATION: deferred laboratory and microbiology Laboratory Tests 09/10/25 06:13 09/08/25 05:03 Test 09/10/25 06:13 Range/Units Serum Glucose 135 H 74-106 mg/dL Problem List Altered mental status/metabolic encephalopathy, secondary to UTI, pain management Reported multiple strokes Gait disturbance, secondary to strokes, obesity, chronic low back pain and other etiology Cognitive dysfunction Vascular dementia Alzheimer disease Chronic pain syndrome Morbid obesity Assessment/Plan Monitoring Supportive treatment Telemetry EEG MRI head IV antibiotics Aspirin 81 mg daily Lipitor 40 mg daily Pain management Further address his morbid obesity and other medical problem as outpatient This medical document was created using an electronic medical record system with [employer] dictation system. Although this document has been carefully reviewed, there may still be some phonetic and typographical errors. These areas are purely typographical due to imperfections of the software programs, and do not reflect any compromise in the patient's medical care. Prognosis poor Dietary Evaluation Review Recommendations by RD: Dietary education by RD Comments: 1) Increase TPN to meet at least 75% estimated daily needs 2) Advance to 45g CCHO cardiac diet when medically feasible, pending ST approval 3) Refer to outpatient RD/CDCE for weight management 4) Continue to monitor I&O, labs, and skin integrity Expected Outcomes/Goals: 1) TPN regimen to meet at least 75% estimated daily needs 2) diet to advance 3) gradual wt loss 4) f/u in 2-3 days Plan discussed with: Other Total Time (mins): 35 DREW PORTILLO MD Sep 10, 2025 08:59
--- NOTE | 2025-09-10 12:33 | DVHPN2 ---
Progress Note - Dictate Date Seen: Sep 10, 2025 Medical Necessity Reason Pt with a Central, PICC or Fol: Yes The following are medically ne: Saleh Catheter Subjective confused vital signs Vital Sign Date Time Temp Pulse Resp B/P (MAP) Pulse Ox O2 Delivery O2 Flow Rate FiO2 09/10/25 12:14 97.6 76 20 109/81 (90) 96 97.6 09/09/25 20:00 Room Air* 0 21 Total Intake and Output 09/10/25 09/10/25 09/10/25 02:30 10:30 18:30 Intake Total 500 ml 400 ml Balance 500 ml 400 ml medications Current Medications Medications Dose Ordered Sig/Kathie Route Start Time Stop Time Status Last Admin Dose Admin Aspirin 81 mg DAILY PO 09/06/25 10:00 09/09/25 09:08 81 MG Atorvastatin Calcium 40 mg HS PO 09/06/25 22:00 09/09/25 22:14 40 MG Carvedilol 12.5 mg Q12HR PO 09/06/25 10:00 09/09/25 22:14 12.5 MG Clonidine HCl 0.1 mg Q4HP PRN PO 09/05/25 22:45 Sodium Chloride 10 ml Q8HR IV 09/06/25 06:00 09/10/25 05:26 10 ML Acetaminophen/ Hydrocodone Bitart 1 tab Q4HP PRN PO 09/05/25 22:45 Ondansetron HCl 4 mg Q4HP PRN IV 09/05/25 22:45 Docusate Sodium 100 mg BIDPRN PRN PO 09/05/25 22:45 Acetaminophen 650 mg Q6HP PRN PO 09/05/25 22:45 Nitroglycerin 0.4 mg Q5MINP PRN SL 09/05/25 23:30 Morphine Sulfate 2 mg Q30M PRN IV 09/05/25 23:30 Dextrose/Sodium Chloride 1,000 ml @ 70 mls/hr [id number] IV 09/07/25 13:00 09/09/25 07:54 70 MLS/HR Amino Acids 0 ml @ 0 mls/hr PER PHARMACY IV 09/07/25 17:45 Amino Acids/ Electrolytes/ Dextrose 1,000 ml @ 41 mls/hr DAILY@2200 IV 09/07/25 22:00 09/09/25 22:08 41 MLS/HR Diagnostic Test (Pha) 1 strip Q6HR 09/07/25 18:00 09/10/25 11:45 1 STRIP Insulin Human Regular FOLLOW SLIDING SCALE Q6HR SC 09/07/25 18:00 09/10/25 11:45 2 UNITS Dextrose 50 ml UD IV 09/07/25 17:45 Lorazepam 1 mg ONCE PRN IV 09/09/25 21:30 objective General confused morbidly obese HEENT: Atraumatic Neck: No swelling Lungs: Equal air entry and clear to auscultation Cardiovascular: S2 heard no murmur Abdomen: Soft nontender, no organomegaly, nondistended Neuro: drowsy, previous h/o stroke laboratory and microbiology Laboratory Tests 09/10/25 06:13 09/08/25 05:03 Test 09/10/25 06:13 Range/Units Serum Glucose 135 H 74-106 mg/dL Assessment/Plan A 50-year-old male Altered mental status likely metabolic Morbid obesity History of stroke UTI resolved Recommendations Patient is mental status is intermittent, today he seems drowsy. According to Dr. Javier, patient was on pain patch when he came in which could be causing his confusion, removed 48 hours ago.. Reviewed cultures and labs from previous hospital admission, UA on on looks clean. off Levaquin and remove midline if not needed Seen by neurology, appreciate recommendation; EEG and MRI brain recommended Patient is on Clinimix due to confusion, swallow evaluation passed for Puree diet. Patient is afebrile, no WBC count, no acute sign of infection Neurology consult to evaluate confusion discussed with RN, Dr Javier Prognosis guarded total time 50 minutes spent during the encounter Thank you for consultation Dietary Evaluation Review Recommendations by RD: Dietary education by RD Comments: 1) Increase TPN to meet at least 75% estimated daily needs 2) Advance to 45g CCHO cardiac diet when medically feasible, pending ST approval 3) Refer to outpatient RD/CDCE for weight management 4) Continue to monitor I&O, labs, and skin integrity Expected Outcomes/Goals: 1) TPN regimen to meet at least 75% estimated daily needs 2) diet to advance 3) gradual wt loss 4) f/u in 2-3 days Plan discussed with: AISHA Butler MD Sep 10, 2025 12:33
--- NOTE | 2025-09-10 17:08 | DVH ---
CLINICAL HISTORY: CVA TECHNIQUE: Routine multiplanar imaging of the brain was performed without gadolinium contrast. Plea se note that axial DWI, T2 haste, and T2 gradient images were acquired. Sagittal and axial T1 weighte d images as well as axial FLAIR images were not obtained COMPARISON: CT HEAD WITHOUT CONTRAST on DOS: 09/05/25, CT HEAD WITHOUT CONTRAST on DOS: 09/04/25 FINDINGS: Evaluation is significantly limited due to image degradation secondary to patient motion. There is no abnormal restricted diffusion to suggest acute infarction. There is increased T2 signal within the bilateral medial thalami. There is abnormal signal within the periaqueductal guevara matter. There is no evidence for acute ischemic changes, mass, mass effect, or extra-axial fluid collection. There is no hydrocephalus or midline shift. The cerebral sulci and subarachnoid cisterns are not effa sedrick. The imaged paranasal sinuses demonstrate moderate right maxillary sinus mucosal thickening. The right maxillary sinus atelectatic. The globes are intact. The midline structures, including the corpus gely losum, are unremarkable. The intracranial flow voids are maintained. IMPRESSION: Significantly limited exam with abnormal T2 hyperintense signal within the bilateral medial thalami a nd periaqueductal guevara matter. Combination of findings is concerning for Wernicke encephalopathy/thi amine deficiency. If there is continued concern for infarct in the artery of percheron distribution, repeat MRI can be considered in a few days.
[2025-09-10] MEDS: POTASSIUM PHOSPHATE 22 MEQ in SODIUM CHL 0.9% 100 ML IV ONE (18:28)
--- NOTE | 2025-09-10 18:41 | DVHPN2 ---
Subjective Patient is confused, antibiotic has been discontinued as per ID recommendations. Changes from previous H/P or p: No Changes Eyes: No Pain, No Vision change, No Conjunctivae inflammation, No Eyelid inflammation, No Other, No Redness ENT: No Ear pain, No Ear discharge, No Nose pain, No Nose discharge, No Nose congestion, No Mouth pain, No Mouth swelling, No Throat pain, No Throat swelling, No Other Cardiovascular: No Chest Pain, No Palpitations, No Orthopnea, No Paroxysmal Noc. Dyspnea, No Edema, No Lt Headedness, No Other Respiratory: No Cough, No Dry, No Shortness of breath, No SOB with excertion, No Wheezing, No Hemoptysis, No Pleuritic Pain, No Sputum, No Other Gastrointestinal: No Nausea, No Vomiting, No Abdominal Pain, No Diarrhea, No Constipation, No Melena, No Hematochezia, No Other Genitourinary: No Dysuria, No Frequency, No Incontinence, No Hematuria, No Retention, No Other Skin: No Rash, No Lesions, No Jaundice, No Bruising, No Other Objective Vitals Vital Signs Date Time Temp Pulse Resp B/P (MAP) Pulse Ox O2 Delivery O2 Flow Rate FiO2 09/10/25 16:44 99.4 92 20 118/82 (94) 95 99.4 09/09/25 20:00 Room Air* 0 21 Intake/Output Intake and Output 09/10/25 07:00 Intake Total 2342 ml Output Total 500 ml Balance 1842 ml Intake Oral 650 ml IV Total 1692 ml Output Urine Total 500 ml # Voids 3 Exam HEENT pupils are reactive Neck is supple CV is S1-S2 regular rate and rhythm Respiratory diminished breath sounds bases GI positive bowel sound Extremity no edema PERCHER more awake alert following commands. Medications Current Medications Medications Dose Ordered Sig/Kathie Route Start Time Stop Time Status Last Admin Dose Admin Aspirin 81 mg DAILY PO 09/06/25 10:09/09/25 09:08 81 MG Atorvastatin Calcium 40 mg HS PO 09/06/25 22:00 09/09/25 22:14 40 MG Carvedilol 12.5 mg Q12HR PO 09/06/25 10:00 09/09/25 22:14 12.5 MG Clonidine HCl 0.1 mg Q4HP PRN PO 09/05/25 22:45 Sodium Chloride 10 ml Q8HR IV 09/06/25 06:00 09/10/25 14:00 10 ML Acetaminophen/ Hydrocodone Bitart 1 tab Q4HP PRN PO 09/05/25 22:45 Ondansetron HCl 4 mg Q4HP PRN IV 09/05/25 22:45 Docusate Sodium 100 mg BIDPRN PRN PO 09/05/25 22:45 Acetaminophen 650 mg Q6HP PRN PO 09/05/25 22:45 Nitroglycerin 0.4 mg Q5MINP PRN SL 09/05/25 23:30 Morphine Sulfate 2 mg Q30M PRN IV 09/05/25 23:30 Dextrose/Sodium Chloride 1,000 ml @ 70 mls/hr [id number] IV 09/07/25 13:00 09/09/25 07:54 70 MLS/HR Amino Acids 0 ml @ 0 mls/hr PER PHARMACY IV 09/07/25 17:45 Amino Acids/ Electrolytes/ Dextrose 1,000 ml @ 41 mls/hr DAILY@2200 IV 09/07/25 22:00 09/09/25 22:08 41 MLS/HR Diagnostic Test (Pha) 1 strip Q6HR 09/07/25 18:00 09/10/25 17:43 1 STRIP Insulin Human Regular FOLLOW SLIDING SCALE Q6HR SC 09/07/25 18:00 09/10/25 17:43 2 UNITS Dextrose 50 ml UD IV 09/07/25 17:45 Lorazepam 1 mg ONCE PRN IV 09/09/25 21:30 Laboratory Results Laboratory Tests 09/08/25 05:03 09/10/25 06:13 Chemistry Test 09/10/25 06:13 Albumin 3.9 g/dL (3.2-4.8) Calcium Level 8.7 mg/dL (8.7-10.4) Magnesium Level 1.8 mg/dL (1.6-2.6) Phosphorus Level 2.5 mg/dL (2.4-5.1) Lipid panel Test 09/09/25 21:40 Cholesterol Level 104 mg/dL (< 200) HDL Cholesterol 30 mg/dL (40-59) L Triglycerides Level 106 mg/dL (< 150) HgA1c, TSH Test 09/09/25 21:40 Thyroid Stimulating Hormone (TSH) 0.87 uIU/mL (0.55-4.78) Urinalysis Test 09/06/25 01:20 Urine Color Yellow (Yellow) Urine Clarity Clear (Clear) Urine pH 6.0 (5.0-9.0) Urine Specific [place] 1.028 (1.001-1.035) Urine Protein Trace (Negative) H Urine Ketones 1+ (Negative) H Urine Blood Negative /uL (Negative) Urine Nitrite Negative (Negative) Urine Bilirubin 1+ (Negative) Urine Urobilinogen 6 mg/dL (Negative) Urine Leukocyte Esterase Negative /uL (Negative) Urine RBC 2 /hpf (0 - 3) Urine Microscopic WBC 2 /HPF (0-3) Urine Squamous Epithelial Cells Few /hpf (<5) Urine Bacteria None seen /hpf (None Seen) Urine Hyaline Casts Few /lpf (0 - 2) Urine Mucus Few (None Seen) Urine Glucose Normal mg/dL (Normal) Microbiology Microbiology Date/Time Source Procedure Growth Status 09/07/25 16:33 Blood Blood Culture - Preliminary NO GROWTH AFTER 72 HOURS OF INCUBATION. Resulted Assessment/Plan Assessment/Plan 50-year-old male with a known history of COPD, congestive heart failure, history of CVA x3 currently bed-bound, diabetes mellitus type 2, hypertension, recurrent UTI who was recently hospitalized was sent home on IV antibiotics with a midline for two weeks of Levaquin presented to the hospital with altered mental status found to have 1. Acute metabolic/toxic encephalopathy, significantly improved 2. Recurrent urinary tract infection , discontinue IV antibiotics 3. Diabetes mellitus type 2 4. Hypertension 5. History of CVA currently bed-bound status 6. Chronic congestive heart failure unspecified 7. Morbid obesity classIII -keep aspiration and fall precaution, diet as tolerated -DC IV antibiotics as per Infectious Disease recommendation which was done yesterday, patient's discharge plan once back to baseline. Plan discussed with: Other My Orders Orders - REDD KISER MD Procedure Category Date Status Time Apply Z-Guard GARIMA 09/10/25 In Process 10:43 Renal Function Test LAB 09/11/25 Verified 05:00 Magnesium LAB 09/11/25 Verified 05:00 Clinimix Per Pharmacy GARIMA 09/10/25 In Process 22:00 Date of Service: Sep 10, 2025 Billing Provider: REDD KISER MD Common Visit Codes: [id number] INP/OBS CARE(HIGH) REDD KISER MD Sep 10, 2025 18:41
[2025-09-11] VITALS (10 sets, daily range): BP systolic 101–121; BP diastolic 72–78; PULSE 80–107; RESP 17–22; TEMP 97.9–99.4; O2SAT 92–100
--- NOTE | 2025-09-11 08:52 | ECG ---
[facility] Test Date: 2025-08-30 Test Time: 16:46:42 Pat Name: ANDREA COE Department: [facility] ED Patient ID: [facility]-[id number] Room: 0220T A Gender: M Store Clerk Checker: DEMI : 1975 Requested By: NISH MARINA Order Number: [id number] Reading MD: Max Higginbotham Measurements Intervals [place] Rate: 134 P: 91 AR: 135 QRS: 39 QRSD: 87 T: -56 QT: 325 QTc: 486 Interpretive Statements Sinus tachycardia Ventricular tachycardia, unsustained Left atrial enlargement Low voltage, precordial leads Abnormal R-wave progression, early transition Nonspecific T abnormalities, diffuse leads Significant artifact ead(s) I,II,aVR,aVL,V1 Electronically Signed On 09-11-2025 9:03:34 PDT by Max Higginbotham Please click the below link to view image of tracing.
[2025-09-11 09:32] LABS: Chloride 106.0 mmol/L (98-107); Sodium 141.0 mmol/L (136-145)
[2025-09-11 09:33] LABS: Anion Gap 12.0 (5-15); Carbon Dioxide 23.0 mmol/L (20-31)
[2025-09-11 09:39] LABS: BUN/Creatinine Ratio 18.8 (10.0-20.0); Blood Urea Nitrogen 15.0 mg/dL (9-23); Magnesium 1.7 mg/dL (1.6-2.6)
[2025-09-11 09:40] LABS: Albumin 3.9 g/dL (3.2-4.8)
[2025-09-11 09:42] LABS: Calcium 8.5 mg/dL (8.7-10.4); Glucose 131.0 mg/dL (74-106); Potassium 3.4 mmol/L (3.5-5.1)
--- NOTE | 2025-09-11 09:44 | DVHPN2 ---
Progress Note - Dictate Date Seen: Sep 11, 2025 Medical Necessity Reason Pt with a Central, PICC or Fol: Yes The following are medically ne: Saleh Catheter Subjective confused vital signs Vital Sign Date Time Temp Pulse Resp B/P (MAP) Pulse Ox O2 Delivery O2 Flow Rate FiO2 09/11/25 04:57 98.4 92 18 121/78 (92) 97 98.4 09/10/25 20:00 Room Air* 0 21 Total Intake and Output 09/10/25 09/10/25 09/11/25 14:59 22:59 06:59 Intake Total 924 ml 0 ml Output Total 325 ml 300 ml Balance 599 ml -300 ml medications Current Medications Medications Dose Ordered Sig/Kathie Route Start Time Stop Time Status Last Admin Dose Admin Aspirin 81 mg DAILY PO 09/06/25 10:00 09/09/25 09:08 81 MG Atorvastatin Calcium 40 mg HS PO 09/06/25 22:00 09/09/25 22:14 40 MG Carvedilol 12.5 mg Q12HR PO 09/06/25 10:00 09/09/25 22:14 12.5 MG Clonidine HCl 0.1 mg Q4HP PRN PO 09/05/25 22:45 Sodium Chloride 10 ml Q8HR IV 09/06/25 06:00 09/11/25 05:47 10 ML Acetaminophen/ Hydrocodone Bitart 1 tab Q4HP PRN PO 09/05/25 22:45 Ondansetron HCl 4 mg Q4HP PRN IV 09/05/25 22:45 Docusate Sodium 100 mg BIDPRN PRN PO 09/05/25 22:45 Acetaminophen 650 mg Q6HP PRN PO 09/05/25 22:45 Nitroglycerin 0.4 mg Q5MINP PRN SL 09/05/25 23:30 Morphine Sulfate 2 mg Q30M PRN IV 09/05/25 23:30 Dextrose/Sodium Chloride 1,000 ml @ 70 mls/hr [id number] IV 09/07/25 13:00 09/09/25 07:54 70 MLS/HR Amino Acids 0 ml @ 0 mls/hr PER PHARMACY IV 09/07/25 17:45 Amino Acids/ Electrolytes/ Dextrose 1,000 ml @ 41 mls/hr DAILY@2200 IV 09/07/25 22:00 09/10/25 22:37 41 MLS/HR Diagnostic Test (Pha) 1 strip Q6HR 09/07/25 18:00 09/11/25 05:48 1 STRIP Insulin Human Regular FOLLOW SLIDING SCALE Q6HR SC 09/07/25 18:00 09/11/25 05:48 2 UNITS Dextrose 50 ml UD IV 09/07/25 17:45 Lorazepam 1 mg ONCE PRN IV 09/09/25 21:30 objective General confused morbidly obese HEENT: Atraumatic Neck: No swelling Lungs: Equal air entry and clear to auscultation Cardiovascular: S2 heard no murmur Abdomen: Soft nontender, no organomegaly, nondistended Neuro: drowsy, previous h/o stroke laboratory and microbiology Laboratory Tests 09/08/25 05:03 Test 09/11/25 08:59 Range/Units Serum Glucose Pending Assessment/Plan A 50-year-old male Altered mental status likely metabolic Morbid obesity History of stroke UTI resolved Recommendations Patient is mental status is intermittent, Reviewed cultures and labs from previous hospital admission, UA on on looks clean. off Levaquin and remove midline if not needed Seen by neurology, appreciate recommendation; EEG and MRI brain - Findings are concerning for Wernicke encephalopathy/thiamine deficiency; denies alcohol use as per neuro notes neurology recommended Repeat MRI may be obtained in a few days if symptoms persist or worsen; follow up with neurolgy Patient is on Clinimix due to confusion, swallow evaluation passed for Puree diet. Patient is afebrile, no WBC count, no acute sign of infection; discussed with RN, Dr Javier Prognosis guarded total time 50 minutes spent during the encounter Thank you for consultation Dietary Evaluation Review Recommendations by RD: Dietary education by RD Comments: 1) Increase TPN to meet at least 75% estimated daily needs 2) Advance to 45g CCHO cardiac diet when medically feasible, pending ST approval 3) Refer to outpatient RD/CDCE for weight management 4) Continue to monitor I&O, labs, and skin integrity Expected Outcomes/Goals: 1) TPN regimen to meet at least 75% estimated daily needs 2) diet to advance 3) gradual wt loss 4) f/u in 2-3 days Plan discussed with: AISHA Butler MD Sep 11, 2025 09:44
--- NOTE | 2025-09-11 10:33 | DVHPN2 ---
Progress Note - Dictate Date Seen: Sep 11, 2025 Medical Necessity Reason Pt with a Central, PICC or Fol: Yes The following are medically ne: Saleh Catheter Subjective Mr. Simmons is a 50 years old gentleman with a history of hypertension, diabetes, hypothyroidism, congestive heart failure, stroke, COPD, UTI, morbid obesity, lupus, he was discharged on 09/04/2025 from [facility] for UTI, but returned on 09/05/2025 for altered mental status. I have seen and examined the patient, I have discussed with his nurse. He is sleepy, but arousable, he does not talk to me or follow my verbal commands Not cooperative with physical examination, eyes closed tightly I have talked to his again today, she denies a history of alcohol problem on him, she again reports the patient has lupus Urinalysis, 08/30/2025: WBC: 11, urine leukocyte esterase: Trace Urinalysis, 09/06/2025: WBC: 2, urine leukocyte esterase: Negative UDS, 09/01/2025: Opiates WBC/HB/PLT/MCV, 09/08/2025: 8.4/13.9/239/77.1 TBI/AST/ALT/AP, 09/09/2025: 1/41/65/142 Vitamin B12, 09/09/25: 317 Folic acid, 09/09/25: 6.2 TSH, 09/09/2025, 0.87 FT4, 09/09/25: 1.12 Venous Doppler, 09/26/2025: No venous thrombus identified in the RIGHT upper extremity vessels evaluated above. Moderate to severe soft-tissue edema in the right upper extremity in her arm in region of removed midline Chest x-ray, 09/05/2025: Cardiomegaly CT head, 09/05/2025: No acute intracranial abnormality MR head, 09/10/2025: Significantly limited exam with abnormal T2 hyperintense signal within the bilateral medial thalami and periaqueductal guevara matter. Combination of findings is concerning for Wernicke encephalopathy/thiamine deficiency. If there is continued concern for infarct in the artery of percheron distribution, repeat MRI can be considered in a few days vital signs Vital Sign Date Time Temp Pulse Resp B/P (MAP) Pulse Ox O2 Delivery O2 Flow Rate FiO2 09/11/25 09:00 99.4 80 20 105/72 (83) 95 99.4 09/10/25 20:00 Room Air* 0 21 Total Intake and Output 09/10/25 09/10/25 09/11/25 15:00 23:00 07:00 Intake Total 924 ml 0 ml Output Total 325 ml 300 ml Balance 599 ml -300 ml medications Current Medications Medications Dose Ordered Sig/Kathie Route Start Time Stop Time Status Last Admin Dose Admin Aspirin 81 mg DAILY PO 09/06/25 10:00 09/09/25 09:08 81 MG Atorvastatin Calcium 40 mg HS PO 09/06/25 22:00 09/09/25 22:14 40 MG Carvedilol 12.5 mg Q12HR PO 09/06/25 10:00 09/09/25 22:14 12.5 MG Clonidine HCl 0.1 mg Q4HP PRN PO 09/05/25 22:45 Sodium Chloride 10 ml Q8HR IV 09/06/25 06:00 09/11/25 05:47 10 ML Acetaminophen/ Hydrocodone Bitart 1 tab Q4HP PRN PO 09/05/25 22:45 Ondansetron HCl 4 mg Q4HP PRN IV 09/05/25 22:45 Docusate Sodium 100 mg BIDPRN PRN PO 09/05/25 22:45 Acetaminophen 650 mg Q6HP PRN PO 09/05/25 22:45 Nitroglycerin 0.4 mg Q5MINP PRN SL 09/05/25 23:30 Morphine Sulfate 2 mg Q30M PRN IV 09/05/25 23:30 Dextrose/Sodium Chloride 1,000 ml @ 70 mls/hr [id number] IV 09/07/25 13:00 09/09/25 07:54 70 MLS/HR Amino Acids 0 ml @ 0 mls/hr PER PHARMACY IV 09/07/25 17:45 Amino Acids/ Electrolytes/ Dextrose 1,000 ml @ 41 mls/hr DAILY@2200 IV 09/07/25 22:00 09/10/25 22:37 41 MLS/HR Diagnostic Test (Pha) 1 strip Q6HR 09/07/25 18:00 09/11/25 05:48 1 STRIP Insulin Human Regular FOLLOW SLIDING SCALE Q6HR SC 09/07/25 18:00 09/11/25 05:48 2 UNITS Dextrose 50 ml UD IV 09/07/25 17:45 Lorazepam 1 mg ONCE PRN IV 09/09/25 21:30 objective General: the patient is well developed and nourished. No acute distress. MENTAL STATUS: Subjective. SPEECH, LANGUAGE, HIGHER CORTICAL FUNCTION: He does not vocalize CRANIAL NERVES: EOMs full and conjugate. Facial sensation fine in all three divisions bilaterally. Mandibular strength intact. Facial muscles symmetrical and strength intact. SENSATION: Sensation to touch and pinprick is fine MOTOR: Normal tone in the upper and lower extremity. Normal muscle bulk. No fasciculations. No abnormal movements or posturing. He moves the arms a little bit REFLEXES: Deep tendon reflexes are symmetrical. No pathological reflexes. CEREBELLAR/COORDINATION: Deferred GAIT/STATION: deferred laboratory and microbiology Laboratory Tests 09/11/25 08:59 09/08/25 05:03 Test 09/11/25 08:59 Range/Units Serum Glucose 131 H 74-106 mg/dL Problem List Altered mental status/metabolic encephalopathy, secondary to UTI, pain management Reported multiple strokes Gait disturbance, secondary to strokes, obesity, chronic low back pain and other etiology Cognitive dysfunction Vascular dementia Alzheimer disease Chronic pain syndrome Morbid obesity Abnormal MR brain scan, ? Etiology History of Lupus Assessment/Plan Monitoring Supportive treatment Telemetry EEG May consider follow up MRI head wwo IV antibiotics Aspirin 81 mg daily Lipitor 40 mg daily Pain management Further address his morbid obesity and other medical problem as outpatient This medical document was created using an electronic medical record system with [employer] dictation system. Although this document has been carefully reviewed, there may still be some phonetic and typographical errors. These areas are purely typographical due to imperfections of the software programs, and do not reflect any compromise in the patient's medical care. Prognosis poor Dietary Evaluation Review Recommendations by RD: Dietary education by RD Comments: 1) Increase TPN to meet at least 75% estimated daily needs 2) Advance to 45g CCHO cardiac diet when medically feasible, pending ST approval 3) Refer to outpatient RD/CDCE for weight management 4) Continue to monitor I&O, labs, and skin integrity Expected Outcomes/Goals: 1) TPN regimen to meet at least 75% estimated daily needs 2) diet to advance 3) gradual wt loss 4) f/u in 2-3 days Plan discussed with: Spouse, Other Total Time (mins): 35 DREW PORTILLO MD Sep 11, 2025 10:33
[2025-09-11] MEDS: POTASSIUM PHOSPHATE 26.4 MEQ in SODIUM CHL 0.9% 100 ML IV ONE (16:47)
--- NOTE | 2025-09-11 17:06 | DVHPN2 ---
Subjective Patient is confused, antibiotic has been discontinued as per ID recommendations. Changes from previous H/P or p: No Changes Eyes: No Pain, No Vision change, No Conjunctivae inflammation, No Eyelid inflammation, No Other, No Redness ENT: No Ear pain, No Ear discharge, No Nose pain, No Nose discharge, No Nose congestion, No Mouth pain, No Mouth swelling, No Throat pain, No Throat swelling, No Other Cardiovascular: No Chest Pain, No Palpitations, No Orthopnea, No Paroxysmal Noc. Dyspnea, No Edema, No Lt Headedness, No Other Respiratory: No Cough, No Dry, No Shortness of breath, No SOB with excertion, No Wheezing, No Hemoptysis, No Pleuritic Pain, No Sputum, No Other Gastrointestinal: No Nausea, No Vomiting, No Abdominal Pain, No Diarrhea, No Constipation, No Melena, No Hematochezia, No Other Genitourinary: No Dysuria, No Frequency, No Incontinence, No Hematuria, No Retention, No Other Skin: No Rash, No Lesions, No Jaundice, No Bruising, No Other Objective Vitals Vital Signs Date Time Temp Pulse Resp B/P (MAP) Pulse Ox O2 Delivery O2 Flow Rate FiO2 09/11/25 13:00 99.2 95 20 101/74 (83) 94 99.2 09/11/25 08:00 Room Air* 0 21 Intake/Output Intake and Output 09/11/25 07:00 Intake Total 924 ml Output Total 625 ml Balance 299 ml Intake Oral 0 ml IV Total 924 ml Output Urine Total 625 ml Exam HEENT pupils are reactive Neck is supple CV is S1-S2 regular rate and rhythm Respiratory diminished breath sounds bases GI positive bowel sound Extremity no edema RECOVERY COLLECTOR more awake alert following commands. Medications Current Medications Medications Dose Ordered Sig/Kathie Route Start Time Stop Time Status Last Admin Dose Admin Aspirin 81 mg DAILY PO 09/06/25 10:09/09/25 09:08 81 MG Atorvastatin Calcium 40 mg HS PO 09/06/25 22:00 09/09/25 22:14 40 MG Carvedilol 12.5 mg Q12HR PO 09/06/25 10:00 09/09/25 22:14 12.5 MG Clonidine HCl 0.1 mg Q4HP PRN PO 09/05/25 22:45 Sodium Chloride 10 ml Q8HR IV 09/06/25 06:00 09/11/25 16:44 10 ML Acetaminophen/ Hydrocodone Bitart 1 tab Q4HP PRN PO 09/05/25 22:45 Ondansetron HCl 4 mg Q4HP PRN IV 09/05/25 22:45 Docusate Sodium 100 mg BIDPRN PRN PO 09/05/25 22:45 Acetaminophen 650 mg Q6HP PRN PO 09/05/25 22:45 Nitroglycerin 0.4 mg Q5MINP PRN SL 09/05/25 23:30 Morphine Sulfate 2 mg Q30M PRN IV 09/05/25 23:30 Dextrose/Sodium Chloride 1,000 ml @ 70 mls/hr [id number] IV 09/07/25 13:00 09/09/25 07:54 70 MLS/HR Amino Acids 0 ml @ 0 mls/hr PER PHARMACY IV 09/07/25 17:45 Amino Acids/ Electrolytes/ Dextrose 1,000 ml @ 41 mls/hr DAILY@2200 IV 09/07/25 22:00 09/10/25 22:37 41 MLS/HR Diagnostic Test (Pha) 1 strip Q6HR 09/07/25 18:00 09/11/25 12:37 1 STRIP Insulin Human Regular FOLLOW SLIDING SCALE Q6HR SC 09/07/25 18:00 09/11/25 12:41 4 UNITS Dextrose 50 ml UD IV 09/07/25 17:45 Lorazepam 1 mg ONCE PRN IV 09/09/25 21:30 Laboratory Results Laboratory Tests 09/08/25 05:03 09/11/25 08:59 Chemistry Test 09/11/25 08:59 Albumin 3.9 g/dL (3.2-4.8) Calcium Level 8.5 mg/dL (8.7-10.4) L Magnesium Level 1.7 mg/dL (1.6-2.6) Phosphorus Level 2.6 mg/dL (2.4-5.1) Urinalysis Test 09/06/25 01:20 Urine Color Yellow (Yellow) Urine Clarity Clear (Clear) Urine pH 6.0 (5.0-9.0) Urine Specific Dwight 1.028 (1.001-1.035) Urine Protein Trace (Negative) H Urine Ketones 1+ (Negative) H Urine Blood Negative /uL (Negative) Urine Nitrite Negative (Negative) Urine Bilirubin 1+ (Negative) Urine Urobilinogen 6 mg/dL (Negative) Urine Leukocyte Esterase Negative /uL (Negative) Urine RBC 2 /hpf (0 - 3) Urine Microscopic WBC 2 /HPF (0-3) Urine Squamous Epithelial Cells Few /hpf (<5) Urine Bacteria None seen /hpf (None Seen) Urine Hyaline Casts Few /lpf (0 - 2) Urine Mucus Few (None Seen) Urine Glucose Normal mg/dL (Normal) Microbiology Microbiology Date/Time Source Procedure Growth Status 09/07/25 16:33 Blood Blood Culture - Preliminary NO GROWTH AFTER 72 HOURS OF INCUBATION. Resulted Assessment/Plan Assessment/Plan 50-year-old male with a known history of COPD, congestive heart failure, history of CVA x3 currently bed-bound, diabetes mellitus type 2, hypertension, recurrent UTI who was recently hospitalized was sent home on IV antibiotics with a midline for two weeks of Levaquin presented to the hospital with altered mental status found to have 1. Acute metabolic/toxic encephalopathy, significantly improved 2. Recurrent urinary tract infection , discontinue IV antibiotics 3. Diabetes mellitus type 2 4. Hypertension 5. History of CVA currently bed-bound status 6. Chronic congestive heart failure unspecified 7. Morbid obesity classIII -family request for hospice. -keep aspiration and fall precaution, diet as tolerated -DC IV antibiotics as per Infectious Disease recommendation which was done yesterday, patient's discharge plan once back to baseline. Plan discussed with: Patient My Orders Orders - REDD KISER MD Procedure Category Date Status Time Potassium Phosphate PHA 09/11/25 In Process 11:45 Comprehensive LAB 09/12/25 Verified Metabolic Panel 05:00 Magnesium LAB 09/12/25 Verified 05:00 Phosphorus LAB 09/12/25 Verified 05:00 Clinimix Per Pharmacy [facility] 09/11/25 In Process 22:00 * Beach Attendant CONS 09/11/25 Transmitted Consult Date of Service: Sep 11, 2025 Billing Provider: REDD KISER MD Common Visit Codes: [id number] INP/OBS CARE(HIGH) REDD KISER MD Sep 11, 2025 17:06
[2025-09-12] VITALS (8 sets, daily range): BP systolic 110–147; BP diastolic 74–105; PULSE 103–124; RESP 10–21; TEMP 97.3–98; O2SAT 86–99
[2025-09-12 06:58] LABS: Anion Gap 13 (5-15); BUN/Creatinine Ratio 18.3 (10.0-20.0); Blood Urea Nitrogen 15 mg/dL (9-23); Carbon Dioxide 23 mmol/L (20-31); Chloride 104 mmol/L (98-107); Magnesium 1.8 mg/dL (1.6-2.6); Potassium 3.9 mmol/L (3.5-5.1); Sodium 140 mmol/L (136-145); Total Protein 6.8 g/dL (5.7-8.2)
[2025-09-12 06:59] LABS: Albumin 4.0 g/dL (3.2-4.8)
[2025-09-12 07:04] LABS: Alanine Aminotransferase 53 U/L (7-40); Alkaline Phosphatase 136 U/L (46-116); Bilirubin, Total 1.6 mg/dL (0.2-1.0); Calcium 8.4 mg/dL (8.7-10.4); Glucose 169 mg/dL (74-106)
[2025-09-12] MEDS ORDERED: ROCURONIUM 10MG/ML 10ML VIAL IV ONE (08:07)
[2025-09-12] MEDS ORDERED: ETOMIDATE (2MG/ML) 20ML VIAL IV ONE (08:07)
[2025-09-12] MEDS ORDERED: MIDAZOLAM DRIP 50 mg/50mL 50 ML IV ONE (08:19)
[2025-09-12] MEDS ORDERED: fentaNYL Drip 2500mCg/250mlNS 250 ML IV ONE (08:19)
[2025-09-12] MEDS ORDERED: NOREPINEPHRINE 8 MG/250ML KIT 250 ML IV ONE (08:33)
[2025-09-12 09:00] LABS: Albumin 3.9 g/dL (3.2-4.8); Anion Gap 11 (5-15); BUN/Creatinine Ratio 14.3 (10.0-20.0); Blood Urea Nitrogen 14 mg/dL (9-23); Carbon Dioxide 28 mmol/L (20-31); Chloride 103 mmol/L (98-107); Magnesium 2.0 mg/dL (1.6-2.6); Potassium 4.5 mmol/L (3.5-5.1); Sodium 142 mmol/L (136-145); Total Protein 6.6 g/dL (5.7-8.2)
[2025-09-12 09:01] LABS: Alanine Aminotransferase 56 U/L (7-40); Alkaline Phosphatase 139 U/L (46-116); Bilirubin, Total 1.6 mg/dL (0.2-1.0); Calcium 8.2 mg/dL (8.7-10.4); Glucose 191 mg/dL (74-106)
--- NOTE | 2025-09-12 09:07 | DVHPN2 ---
Progress Note - Dictate Date Seen: Sep 12, 2025 Medical Necessity Reason Pt with a Central, PICC or Fol: Yes The following are medically ne: Saleh Catheter Subjective confused Patient SpO2 is at 85% vital signs Vital Sign Date Time Temp Pulse Resp B/P (MAP) Pulse Ox O2 Delivery O2 Flow Rate FiO2 09/12/25 08:16 124 20 136/105 (115) 98 60 09/12/25 08:00 Nasal Cannula* 4 09/12/25 05:00 97.9 97.9 Total Intake and Output 09/11/25 09/11/25 09/12/25 15:00 23:00 07:00 Intake Total 330 ml Output Total 300 ml 350 ml Balance -300 ml -20 ml medications Current Medications Medications Dose Ordered Sig/Kathie Route Start Time Stop Time Status Last Admin Dose Admin Aspirin 81 mg DAILY PO 09/06/25 10:00 09/09/25 09:08 81 MG Atorvastatin Calcium 40 mg HS PO 09/06/25 22:00 09/09/25 22:14 40 MG Carvedilol 12.5 mg Q12HR PO 09/06/25 10:00 09/09/25 22:14 12.5 MG Clonidine HCl 0.1 mg Q4HP PRN PO 09/05/25 22:45 Sodium Chloride 10 ml Q8HR IV 09/06/25 06:00 09/12/25 06:00 10 ML Acetaminophen/ Hydrocodone Bitart 1 tab Q4HP PRN PO 09/05/25 22:45 Ondansetron HCl 4 mg Q4HP PRN IV 09/05/25 22:45 Docusate Sodium 100 mg BIDPRN PRN PO 09/05/25 22:45 Acetaminophen 650 mg Q6HP PRN PO 09/05/25 22:45 Nitroglycerin 0.4 mg Q5MINP PRN SL 09/05/25 23:30 Morphine Sulfate 2 mg Q30M PRN IV 09/05/25 23:30 Dextrose/Sodium Chloride 1,000 ml @ 70 mls/hr [id number] IV 09/07/25 13:00 09/09/25 07:54 70 MLS/HR Amino Acids 0 ml @ 0 mls/hr PER PHARMACY IV 09/07/25 17:45 Amino Acids/ Electrolytes/ Dextrose 1,000 ml @ 41 mls/hr DAILY@2200 IV 09/07/25 22:00 09/11/25 22:06 41 MLS/HR Diagnostic Test (Pha) 1 strip Q6HR 09/07/25 18:00 09/12/25 05:28 1 STRIP Insulin Human Regular FOLLOW SLIDING SCALE Q6HR SC 09/07/25 18:00 09/12/25 05:52 4 UNITS Dextrose 50 ml UD IV 09/07/25 17:45 Lorazepam 1 mg ONCE PRN IV 09/09/25 21:30 objective General confused morbidly obese HEENT: Atraumatic Neck: No swelling Lungs: Equal air entry and clear to auscultation Cardiovascular: S2 heard no murmur Abdomen: Soft nontender, no organomegaly, nondistended Neuro: drowsy, previous h/o stroke laboratory and microbiology Test 09/12/25 08:15 Range/Units Serum Glucose Pending Assessment/Plan A 50-year-old male Altered mental status likely metabolic Morbid obesity History of stroke UTI resolved Recommendations Patient is mental status is intermittent, Reviewed cultures and labs from previous hospital admission, UA on on looks clean. off Levaquin and remove midline if not needed Seen by neurology, appreciate recommendation; EEG and MRI brain - Findings are concerning for Wernicke encephalopathy/thiamine deficiency; denies alcohol use as per neuro notes neurology recommended Repeat MRI may be obtained in a few days if symptoms persist or worsen; follow up with neurolgy Patient is on Clinimix due to confusion, swallow evaluation passed for Puree diet. Patient is afebrile, no WBC count, no acute sign of infection; discussed with RN, Dr Javier Prognosis guarded total time 50 minutes spent during the encounter Thank you for consultation Dietary Evaluation Review Recommendations by RD: Dietary education by RD Comments: 1) Increase TPN to meet at least 75% estimated daily needs 2) Advance to 45g CCHO cardiac diet when medically feasible, pending ST approval 3) Refer to outpatient RD/CDCE for weight management 4) Continue to monitor I&O, labs, and skin integrity Expected Outcomes/Goals: 1) TPN regimen to meet at least 75% estimated daily needs 2) diet to advance 3) gradual wt loss 4) f/u in 2-3 days AISHA CRENSHAW MD Sep 12, 2025 09:07
--- NOTE | 2025-09-12 09:08 | DVH ---
CT HEAD WITHOUT CONTRAST INDICATION: ALOC EXAM DATE: 09/12/2025 08:34 AM COMPARISON: MRI BRAIN HEAD WO CONTRAST on DOS: 09/10/25, CT HEAD WITHOUT CONTRAST on DOS: 09/05/25, CT HEAD WITHOUT CONTRAST on DOS: 09/04/25 RADIATION DOSE: CTDIvol: 58 mGy, DLP: 1155 mGy*cm PROCEDURE: CT scans of the head were obtained from the vertex to the skull base. Sagittal and coronal reconstructions were provided. All CT scans at this medical facility are performed using dose modulation techniques as appropriate t o a performed exam including the following: Automated exposure control was utilized; adjustment of th e MA and/or KV according to patient size; and use of iterative reconstruction technique. FINDINGS: There is sulcal and ventricular prominence. The brainshows normal morphology and guevara-whi te matter differentiation, without intracranial hemorrhage, extra-axial fluid collection, mass effect or acute large vessel infarct. The ventricles are normal in size. The basal cisterns are patent. The skull and visible facial bones are intact. Right maxillary sinus mucosal opacification. The other pa ranasal sinuses, mastoid air cells and middle ear cavities are well-aerated. The soft tissues of the scalp are unremarkable. IMPRESSION: No acute intracranial abnormality.
[2025-09-12 09:11] LABS: Lactic Acid w/Reflex 2.6 mmol/L (0.4-2.0)
[2025-09-12] MEDS: LORazepam 2MG/ML-1ML VIAL IV PRN (09:28)
[2025-09-12] MEDS: HYDROmorphone HCL 2 MG/ML VL/or syr IV PRN (09:28)
--- NOTE | 2025-09-12 09:37 | DVHPN2 ---
Progress Note - Dictate Date Seen: Sep 12, 2025 Medical Necessity Reason Pt with a Central, PICC or Fol: Yes The following are medically ne: Saleh Catheter Subjective Patient was not seen Mr. Simmons is a 50 years old gentleman with a history of hypertension, diabetes, hypothyroidism, congestive heart failure, stroke, COPD, UTI, morbid obesity, lupus, he was discharged on 09/04/2025 from [facility] for UTI, but returned on 09/05/2025 for altered mental status. I have seen and examined the patient, I have discussed with his nurse. He is sleepy, but arousable, he does not talk to me or follow my verbal commands Not cooperative with physical examination, eyes closed tightly I have talked to his again today, she denies a history of alcohol problem on him, she again reports the patient has lupus Urinalysis, 08/30/2025: WBC: 11, urine leukocyte esterase: Trace Urinalysis, 09/06/2025: WBC: 2, urine leukocyte esterase: Negative UDS, 09/01/2025: Opiates WBC/HB/PLT/MCV, 09/08/2025: 8.4/13.9/239/77.1 TBI/AST/ALT/AP, 09/09/2025: 1/41/65/142 Vitamin B12, 09/09/25: 317 Folic acid, 09/09/25: 6.2 TSH, 09/09/2025, 0.87 FT4, 09/09/25: 1.12 Venous Doppler, 09/26/2025: No venous thrombus identified in the RIGHT upper extremity vessels evaluated above. Moderate to severe soft-tissue edema in the right upper extremity in her arm in region of removed midline Chest x-ray, 09/05/2025: Cardiomegaly CT head, 09/05/2025: No acute intracranial abnormality CT head, 09/12/2025: No acute intracranial abnormality MR head, 09/10/2025: Significantly limited exam with abnormal T2 hyperintense signal within the bilateral medial thalami and periaqueductal guevara matter. Combination of findings is concerning for Wernicke encephalopathy/thiamine deficiency. If there is continued concern for infarct in the artery of percheron distribution, repeat MRI can be considered in a few days vital signs Vital Sign Date Time Temp Pulse Resp B/P (MAP) Pulse Ox O2 Delivery O2 Flow Rate FiO2 09/12/25 09:28 104 8 112/69 09/12/25 09:00 97.3 97.3 09/12/25 08:16 98 60 09/12/25 08:00 Nasal Cannula* 4 Total Intake and Output 09/11/25 09/11/25 09/12/25 15:00 23:00 07:00 Intake Total 330 ml Output Total 300 ml 350 ml Balance -300 ml -20 ml medications Current Medications Medications Dose Ordered Sig/Kathie Route Start Time Stop Time Status Last Admin Dose Admin Aspirin 81 mg DAILY PO 09/06/25 10:00 09/09/25 09:08 81 MG Atorvastatin Calcium 40 mg HS PO 09/06/25 22:00 09/09/25 22:14 40 MG Carvedilol 12.5 mg Q12HR PO 09/06/25 10:00 09/09/25 22:14 12.5 MG Clonidine HCl 0.1 mg Q4HP PRN PO 09/05/25 22:45 Sodium Chloride 10 ml Q8HR IV 09/06/25 06:00 09/12/25 06:00 10 ML Acetaminophen/ Hydrocodone Bitart 1 tab Q4HP PRN PO 09/05/25 22:45 Ondansetron HCl 4 mg Q4HP PRN IV 09/05/25 22:45 Docusate Sodium 100 mg BIDPRN PRN PO 09/05/25 22:45 Acetaminophen 650 mg Q6HP PRN PO 09/05/25 22:45 Nitroglycerin 0.4 mg Q5MINP PRN SL 09/05/25 23:30 Morphine Sulfate 2 mg Q30M PRN IV 09/05/25 23:30 Dextrose/Sodium Chloride 1,000 ml @ 70 mls/hr [id number] IV 09/07/25 13:00 09/09/25 07:54 70 MLS/HR Amino Acids 0 ml @ 0 mls/hr PER PHARMACY IV 09/07/25 17:45 Amino Acids/ Electrolytes/ Dextrose 1,000 ml @ 41 mls/hr DAILY@2200 IV 09/07/25 22:00 09/11/25 22:06 41 MLS/HR Diagnostic Test (Pha) 1 strip Q6HR 09/07/25 18:00 09/12/25 05:28 1 STRIP Insulin Human Regular FOLLOW SLIDING SCALE Q6HR SC 09/07/25 18:00 09/12/25 05:52 4 UNITS Dextrose 50 ml UD IV 09/07/25 17:45 Lorazepam 1 mg ONCE PRN IV 09/09/25 21:30 Lorazepam 1 mg Q4HP PRN IV 09/12/25 09:15 09/12/25 09:28 1 MG Hydromorphone HCl 1 mg Q4HPRN PRN IV 09/12/25 09:15 09/12/25 09:28 1 MG objective General: the patient is well developed and nourished. No acute distress. MENTAL STATUS: Subjective. SPEECH, LANGUAGE, HIGHER CORTICAL FUNCTION: He does not vocalize CRANIAL NERVES: EOMs full and conjugate. Facial sensation fine in all three divisions bilaterally. Mandibular strength intact. Facial muscles symmetrical and strength intact. SENSATION: Sensation to touch and pinprick is fine MOTOR: Normal tone in the upper and lower extremity. Normal muscle bulk. No fasciculations. No abnormal movements or posturing. He moves the arms a little bit REFLEXES: Deep tendon reflexes are symmetrical. No pathological reflexes. CEREBELLAR/COORDINATION: Deferred GAIT/STATION: deferred laboratory and microbiology Laboratory Tests 09/12/25 08:15 09/08/25 05:03 Test 09/12/25 08:15 Range/Units Serum Glucose 191 H 74-106 mg/dL Problem List Altered mental status/metabolic encephalopathy, secondary to UTI, pain management Reported multiple strokes Gait disturbance, secondary to strokes, obesity, chronic low back pain and other etiology Cognitive dysfunction Vascular dementia Alzheimer disease Chronic pain syndrome Morbid obesity Abnormal MR brain scan, ? Etiology History of Lupus Assessment/Plan Monitoring Supportive treatment Telemetry EEG May consider follow up MRI head wwo IV antibiotics Aspirin 81 mg daily Lipitor 40 mg daily Pain management Further address his morbid obesity and other medical problem as outpatient This medical document was created using an electronic medical record system with [employer] (formerly [employer]) dictation system. Although this document has been carefully reviewed, there may still be some phonetic and typographical errors. These areas are purely typographical due to imperfections of the software programs, and do not reflect any compromise in the patient's medical care. Dietary Evaluation Review Recommendations by RD: Dietary education by RD Comments: 1) Increase TPN to meet at least 75% estimated daily needs 2) [facility] when medically feasible, pending ST approval 3) Refer to outpatient RD/CDCE for weight management 4) Continue to monitor I&O, labs, and skin integrity Expected Outcomes/Goals: 1) TPN regimen to meet at least 75% estimated daily needs 2) diet to advance 3) gradual wt loss 4) f/u in 2-3 days Plan discussed with: Other DREW PORTILLO MD Sep 12, 2025 09:37
[2025-09-12] MEDS ORDERED: THIAMINE 100mg/ml INJ (200mg/2ml VIAL) IV ONE (09:45)
[2025-09-12] MEDS ORDERED: THIAMINE 100mg/ml INJ (200mg/2ml VIAL) IV SCH (10:00)
--- NOTE | 2025-09-12 10:03 | RESUS ---
CODE ASSIST ASSESSSMENT Initial Information Code Assist Date: Sep 12, 2025 Code Assist Time: 07:57 Location of Arrest: Central Room # [address]A Provider Name DR SADLER-RESIDENT AND DR MARTINES RESIDENT AT BEDSIDE, DR ESPINOZA ED DR TO BEDSIDE DURING INTUBATION, DR KISER PRIMARY NOT AT BEDSIDE-NOTIFIED Time Notified: 07:57 Crash Cart Opened and Supplies: Yes Situation Staff concerned/worried, speci: SaO2 <90, Non-responsive, Change LOC Situation comment: LEARNING AND DEVELOPMENT ADMINISTRATOR BEBO ASKED THIS RN UPON UNIT ROUNDING TO ASSESS PATIENT. PATIENT SNORING, UNRESPONSIVE TO VERBAL OR PAINFUL STIMULI WITH SPO2 86%. RAPID RESPONSE CALLED OVERHEAD. Background Background: SEE EMR. Assessment Blood Pressure Systolic: 126 Blood Pressure Diastolic: 79 Respiratory Rate: 10 O2 Sat by Pulse Oximetry: 86 Bedside Blood Glucose: 198 Assessment comment: AGONALLY BREATHING, UNRESPONSIVE, SPO2 IN THE 80S. Recommendations/Interventions Procedures: Accu check, CMP, CBC, PT/PTT, Troponin, Cardiac Monitoring, Inititate ACLS Protocol, Intubated (SIZE 8.0/22 CM AT LIP ON SECOND ATTEMPT WITH GLIDESCOPE), Bag Mask Outcome Outcome: Transfer to ICU (STAYED IN 220A WITH ICU RESOURCE MINDY TONG UNTIL ICU BED AVAILABLE) Follow up Report Follow up Report CAME TO BEDSIDE AND STATED SHE WANTED PATIENT TO BE DNR AND REQUESTED TERMINAL WEAN. RT WEANED PATIENT AFTER SPOKE WITH AND ORDER OBTAINED. Team Members Team Members DR SADLER-RESIDENT, DR MARTINES -RESIDENT, DR ESPINOZA AT BEDSIDE DURING INTUBATION, LARON DATA SECURITY COORDINATOR, BEBO MOLDER APPRENTICE, SHERIF RT, REN RT, MINDY TONG ICU RESOURCE, MARYANN TONG ICU CHARGE, EV TONG PRIMARY Laron Avalos Sep 12, 2025 10:03
--- NOTE | 2025-09-12 10:09 | DVHPN2 ---
Progress Note Date Seen: Sep 12, 2025 Medical Necessity Reason Pt with a Central, PICC or Fol: Yes The following are medically ne: Zelaya Catheter Reason for zelaya catheter: Strict I&O Subjective Patient reports: No new complaints Review of Systems: HEENT:Normal, CVS:Normal, RESPIRATORY:Normal, GI:Normal, :Normal, MSK:Normal, NEURO:Normal Objective vital signs Vital Sign Date Time Temp Pulse Resp B/P (MAP) Pulse Ox O2 Delivery O2 Flow Rate FiO2 09/12/25 09:28 104 8 112/69 09/12/25 09:00 97.3 97.3 09/12/25 08:50 99 60 09/12/25 08:00 Nasal Cannula* 4 Total Intake and Output 09/11/25 09/11/25 09/12/25 15:00 23:00 07:00 Intake Total 330 ml Output Total 300 ml 350 ml Balance -300 ml -20 ml medications Current Medications Medications Dose Ordered Sig/Kathie Route Start Time Stop Time Status Last Admin Dose Admin Aspirin 81 mg DAILY PO 09/06/25 10:00 09/09/25 09:08 81 MG Atorvastatin Calcium 40 mg HS PO 09/06/25 22:00 09/09/25 22:14 40 MG Carvedilol 12.5 mg Q12HR PO 09/06/25 10:00 09/09/25 22:14 12.5 MG Clonidine HCl 0.1 mg Q4HP PRN PO 09/05/25 22:45 Sodium Chloride 10 ml Q8HR IV 09/06/25 06:00 09/12/25 06:00 10 ML Acetaminophen/ Hydrocodone Bitart 1 tab Q4HP PRN PO 09/05/25 22:45 Ondansetron HCl 4 mg Q4HP PRN IV 09/05/25 22:45 Docusate Sodium 100 mg BIDPRN PRN PO 09/05/25 22:45 Acetaminophen 650 mg Q6HP PRN PO 09/05/25 22:45 Nitroglycerin 0.4 mg Q5MINP PRN SL 09/05/25 23:30 Morphine Sulfate 2 mg Q30M PRN IV 09/05/25 23:30 Dextrose/Sodium Chloride 1,000 ml @ 70 mls/hr [id number] IV 09/07/25 13:00 09/09/25 07:54 70 MLS/HR Amino Acids 0 ml @ 0 mls/hr PER PHARMACY IV 09/07/25 17:45 Amino Acids/ Electrolytes/ Dextrose 1,000 ml @ 41 mls/hr DAILY@2200 IV 09/07/25 22:00 09/11/25 22:06 41 MLS/HR Diagnostic Test (Pha) 1 strip Q6HR 09/07/25 18:00 09/12/25 05:28 1 STRIP Insulin Human Regular FOLLOW SLIDING SCALE Q6HR SC 09/07/25 18:00 09/12/25 05:52 4 UNITS Dextrose 50 ml UD IV 09/07/25 17:45 Lorazepam 1 mg ONCE PRN IV 09/09/25 21:30 Lorazepam 1 mg Q4HP PRN IV 09/12/25 09:15 09/12/25 09:28 1 MG Hydromorphone HCl 1 mg Q4HPRN PRN IV 09/12/25 09:15 09/12/25 09:28 1 MG Thiamine HCl 100 mg DAILY IV 09/12/25 10:00 UNV Examination: GENERAL:Normal, HEENT:Normal, NECK:Normal, LUNGS:Normal, LUNGS:Abnormal (AGONAL BREATHING), CVS:Normal, ABDOMEN:Normal, MSK:Normal, SKIN:Normal, NEURO:Normal, :Normal laboratory and microbiology Laboratory Tests 09/12/25 08:15 09/08/25 05:03 Test 09/12/25 08:15 Range/Units Serum Glucose 191 H 74-106 mg/dL Microbiology Date/Time Source Procedure Growth Status 09/07/25 16:33 Blood Blood Culture - Preliminary NO GROWTH AFTER 72 HOURS OF INCUBATION. Resulted Problem List/Assessment/Plan Problem List/Assessment/Plan #1 encephalopathy- metabolic #2 h/o uti #3 copd #4 h/o cva #5 morbid obesity #6 chronic systolic/diastolic heart failure #7 lupus dw - wishes comfort care- time spent 21 mins Plan discussed with: Patient, Spouse Dietary Evaluation Review Recommendations by RD: Dietary education by RD Comments: 1) Increase TPN to meet at least 75% estimated daily needs 2) Advance to 45g CCHO cardiac diet when medically feasible, pending ST approval 3) Refer to outpatient RD/CDCE for weight management 4) Continue to monitor I&O, labs, and skin integrity Expected Outcomes/Goals: 1) TPN regimen to meet at least 75% estimated daily needs 2) diet to advance 3) gradual wt loss 4) f/u in 2-3 days Date of Service: Sep 12, 2025 Billing Provider: YESIKA VILLAFUERTE MD Common Visit Codes: [id number] INP/OBS CARE(HIGH) Secondary Visit Codes: [id number] CARE PLAN 30 MINUTES YESIKA VILLAFUERTE MD Sep 12, 2025 10:09
--- NOTE | 2025-09-12 10:43 | DVHDS ---
DATE OF DISCHARGE: 09/12/2025 SUMMARY HISTORY OF PRESENT ILLNESS: The patient is a 50-year-old gentleman who was admitted with history of altered level of consciousness and has a history of COPD, congestive heart failure, CVA, diabetes, hypertension and recurrent UTIs. HOSPITAL COURSE: The patient had a CT of the head that showed no acute intracranial abnormality. A brain MRI showed evidence of possibility of Wernicke's encephalopathy. The patient was seen in Neurology consult by Dr. Strong and Infectious Disease consult by Dr. Muro. The patient's blood cultures were negative. The patient had elevated lactate. The patient went into cardiorespiratory arrest on 09/12/2025. The patient's , however, wished him to be comfort measures. He at 10:13 a.m. on 09/12/2025. FINAL DIAGNOSES: Therefore: * Encephalopathy metabolic. * CVA. * History of recurrent UTIs. * COPD. * Morbid obesity. * Chronic systolic/diastolic heart failure. * Lupus. * Diabetes mellitus. * DNR/comfort measures. MD JESE Tavarez/ANA TID: [id number] RECEIPT: [id number]
[2025-09-12] MEDS ORDERED: SODIUM BICARB 8.4% 50Meq/50ml SYR INJ IV ONE (11:12)
--- NOTE | 2025-09-14 17:27 | DVHEEG2 ---
Neurology EEG Procedural Note Procedural Note EXAM DATE: 09/11/2025 REFERRING DOCTOR: DR. PORTILLO TECHNIQUE: Eighteen channels of EEG, 2 channels of EOG, and 1 channel of EKG were recorded using the [employer] 10/20 system. CLINICAL DATA: The patient was referred for an EEG evaluation for the evidence of seizure disorder. MEDICATIONS: SEE CHART BACKGROUND ACTIVITY: This record showed low-amplitude theta activity over both hemispheres, that was reactive to external stimuli ACTIVATION: Hyperventilation: Not done Photic Stimulation: Not done Sleep: Not seen IMPRESSION: This is a mildly abnormal EEG, this EEG is seen in mild cerebral dysfunction due to metabolic/hypoxic encephalopathy or medication effect, please correlate clinically The EKG channel showed a regular heart rate of 102 per minute. [place] [address] DREW PORTILLO MD Sep 14, 2025 17:27
== END 2025-09-12 13:30 | DRG 871 ==
LOC: EDUNIT# 12:14 → EDBD 12:14 → ER 12:23 → OVERFLOW 23:23 → TELE-CENTR 09-06 23:54
PROVIDERS: ADMIT Internal Medicine; ATTEND Internal Medicine
PROC: 05HC33Z Insertion of Infusion Device into Left Basilic Vein, Percutaneous Approach (ICD-10-PCS; principal; 2025-09-09)
PROC: B54NZZA Ultrasonography of Left Upper Extremity Veins, Guidance (ICD-10-PCS; 2025-09-09)
DX: A41.9 Sepsis, unspecified organism (principal); G93.41 Metabolic encephalopathy; J18.9 Pneumonia, unspecified organism; I50.42 Chronic combined systolic (congestive) and diastolic (congestive) heart failure; N39.0 Urinary tract infection, site not specified; J44.0 Chronic obstructive pulmonary disease with (acute) lower respiratory infection; Z68.41 Body mass index [BMI] 40.0-44.9, adult; E87.6 Hypokalemia; I11.0 Hypertensive heart disease with heart failure; E11.9 Type 2 diabetes mellitus without complications; G30.9 Alzheimer's disease, unspecified; Z66 Do not resuscitate; I46.9 Cardiac arrest, cause unspecified; F01.50 Vascular dementia, unspecified severity, without behavioral disturbance, psychotic disturbance, mood disturbance, and anxiety; R26.9 Unspecified abnormalities of gait and mobility; G89.4 Chronic pain syndrome; Z88.0 Allergy status to penicillin; E66.813 Obesity, class 3; E03.9 Hypothyroidism, unspecified; Z79.82 Long term (current) use of aspirin; F02.80 Dementia in other diseases classified elsewhere, unspecified severity, without behavioral disturbance, psychotic disturbance, mood disturbance, and anxiety; Z79.899 Other long term (current) drug therapy; Z82.0 Family history of epilepsy and other diseases of the nervous system; Z82.3 Family history of stroke; Z82.49 Family history of ischemic heart disease and other diseases of the circulatory system; Z86.73 Personal history of transient ischemic attack (TIA), and cerebral infarction without residual deficits; Z74.01 Bed confinement status; Z88.1 Allergy status to other antibiotic agents; Z91.014 Allergy to mammalian meats
CPT/HCPCS: 31720; 36415; 36600; 70450; 70551; 71045; 80048; 80053; 80061; 80069; 81001; 82040; 82607; 82746; 82805; 82962; 83605; 83735; 83880; 84100; 84439; 84443; 84478; 84484; 85025; 87040; 87070; 87077; 87186; 87205; 92526; 92610; 93005; 93971; 95819; 99291; G0378; J1815; J2405; J3480; J7042; J7060